=== PATIENT | male | born 1955 | race Caucasian/White ===

== ENCOUNTER 2016-04-12 19:44 | Emergency (ER) | payer OTHER ==
[~2016-04-12] VITALS: Ht 177.8 cm; Wt 100.0 kg
[~2016-04-12 19:44] MED LIST: IBUP800 PO; PRED50TA PO; TRAZ100
[2016-04-12 20:17] VITALS: BP 114/63; PULSE 72; RESP 20; TEMP 97.6; O2SAT 96
[2016-04-12] MEDS ORDERED: LORazepam 2 MG/ML VIAL IV ONE (20:30)
--- NOTE | 2016-04-12 20:31 | PD ---
HPI Chief Complaint: Psychiatric Symptoms Time Seen by Provider: 20:17 Travel History International Travel<30 days: No Contact w/Intl Traveler<30days: No Traveled to known affect area: No History of Present Illness HPI 60-year-old male with history of alcohol abuse, presents to the ER today because he states that he wants to kill himself. He has been Gannon acted. He denies any attempts. He states that he has been self-medicating with alcohol. He denies any other ingestions. He states he wants to shoot himself or stab himself. Modifying Factors: None Associated Signs & Symptoms: Suicidal ideation Risk Factors: Alcohol use PFSH Past Medical History Anxiety: Yes Depression: Yes Diminished Hearing: No Musculoskeletal: Yes Social History Alcohol Use: No Tobacco Use: No Substance Use: No (1 MONTH SOBER. HX OF ALCOHOLISM) Allergies-Medications (Allergen,Severity, Reaction): Coded Allergies: No Known Allergies (Unverified , 04/12/16) Reported Meds & Prescriptions Reported Meds & Active Scripts Active No Active Prescriptions or Reported Medications Review of Systems ROS Limitations: Intoxication Except as stated in HPI: all other systems reviewed are Neg Physical Exam Narrative GENERAL: Well-nourished, well-developed elderly white male patient in no acute distress, fairly agitated in the ER. Awake and oriented 3. Alcohol on breath. SKIN: Warm and dry. HEAD: Normocephalic. EYES: No scleral icterus. No injection or drainage. NECK: Supple, trachea midline. CARDIOVASCULAR: Regular rate and rhythm without murmurs, gallops, or rubs. RESPIRATORY: Breath sounds equal bilaterally. No accessory muscle use. GASTROINTESTINAL: Abdomen soft, non-tender, nondistended. MUSCULOSKELETAL: No cyanosis, or edema. BACK: Nontender without obvious deformity. No CVA tenderness. Data Data Last Documented VS Vital Signs Date Time Temp Pulse Resp B/P Pulse Ox O2 Delivery O2 Flow Rate FiO2 04/12/16 20:38 97.6 72 20 114/63 96 Orders Complete Blood Count With Diff (04/12/16 20:17) Comprehensive Metabolic Panel (04/12/16 20:17) Drug Screen, Random Urine (04/12/16 20:17) Alcohol (Ethanol) (04/12/16 20:17) Psych Screen (04/12/16 20:17) Lorazepam Inj (Ativan Inj) (04/12/16 20:30) Diet Regular Basic (04/12/16 Dinner) Labs Laboratory Tests Test 04/12/16 20:15 White Blood Count 6.4 TH/MM3 Red Blood Count 5.30 MIL/MM3 Hemoglobin 16.5 GM/DL Hematocrit 47.7 % Mean Corpuscular Volume 90.1 FL Mean Corpuscular Hemoglobin 31.1 PG Mean Corpuscular Hemoglobin 34.5 % Concent Red Cell Distribution Width 14.3 % Platelet Count 233 TH/MM3 Mean Platelet Volume 8.6 FL Neutrophils (%) (Auto) 55.5 % Lymphocytes (%) (Auto) 34.4 % Monocytes (%) (Auto) 8.0 % Eosinophils (%) (Auto) 1.4 % Basophils (%) (Auto) 0.7 % Neutrophils # (Auto) 3.6 TH/MM3 Lymphocytes # (Auto) 2.2 TH/MM3 Monocytes # (Auto) 0.5 TH/MM3 Eosinophils # (Auto) 0.1 TH/MM3 Basophils # (Auto) 0.0 TH/MM3 CBC Comment DIFF FINAL Differential Comment Urine Opiates Screen NEG Urine Barbiturates Screen NEG Urine Amphetamines Screen NEG Urine Benzodiazepines Screen NEG Urine Cocaine Screen NEG Urine Cannabinoids Screen NEG MDM Medical Decision Making Medical Screen Exam Complete: Yes Emergency Medical Condition: Yes Medical Record Reviewed: Yes Differential Diagnosis Agitation, suicidal ideation, alcohol intoxication, medical clearance Narrative Course Lab work was ordered and the patient. Ativan was given to the patient due to agitation. Gannon act has already been done on the patient. Physician Communication Physician Communication Case is signed out to JEWEL Junior at 9 PM pending lab results for medical clearance. Diagnosis Primary Impression: Suicidal ideation Scripts No Active Prescriptions or Reported Meds Condition: Stable Carissa Rosario MD Apr 12, 2016 20:31
[2016-04-12 20:35] LABS: AUTOMATED NEUTROPHIL # 3.6 TH/MM3 (1.8-7.7); BASOPHIL % 0.7 % (0.0-2.0); EOSINOPHIL # 0.1 TH/MM3 (0-0.4); EOSINOPHIL % 1.4 % (0.0-4.0); HEMATOCRIT 47.7 % (39.0-51.0); HEMO FLAGS DIFF FINAL; LYMPH % 34.4 % (9.0-44.0); LYMPHOCYTE # 2.2 TH/MM3 (1.0-4.8); MEAN CELL VOLUME 90.1 FL (80.0-100.0); MEAN CORPUSCULAR HEMOGLOBIN 31.1 PG (27.0-34.0); MEAN CORPUSCULAR HGB CONC 34.5 % (32.0-36.0); NEUT % 55.5 % (16.0-70.0); PLATELET COUNT 233 TH/MM3 (150-450); RED CELL DISTRIBUTION WIDTH 14.3 % (11.6-17.2); WHITE BLOOD COUNT 6.4 TH/MM3 (4.0-11.0)
[2016-04-12 20:38] VITALS: BP 114/63; PULSE 72; RESP 20; TEMP 97.6; O2SAT 96
[2016-04-12 20:47] LABS: AMPHETAMINE, URINE NEG (NEG); BARBITURATES, URINE NEG (NEG); COCAINE, URINE NEG (NEG)
[2016-04-12 21:07] LABS: ALKALINE PHOSPHATASE 79 U/L (45-117); ALT (GPT) 20 U/L (12-78); ANION GAP 11 MEQ/L (5-15); AST (GOT) 35 U/L (15-37); BICARBONATE 22.3 MEQ/L (21.0-32.0); BLOOD UREA NITROGEN 7 MG/DL (7-18); CHLORIDE 106 MEQ/L (98-107); GLOMERULAR FILTRATION RATE 98 ML/MIN (>89); SODIUM (NA) 139 MEQ/L (136-145); TOTAL BILIRUBIN ADULT 0.4 MG/DL (0.2-1.0)
[2016-04-12 21:08] LABS: POTASSIUM 4.3 MEQ/L (3.5-5.1)
--- NOTE | 2016-04-12 21:30 | PD ---
Physical Exam Date Seen by Provider: Apr 12, 2016 Time Seen by Provider: 21:29 Data Data Last Documented VS Vital Signs Date Time Temp Pulse Resp B/P Pulse Ox O2 Delivery O2 Flow Rate FiO2 04/12/16 20:38 97.6 72 20 114/63 96 Orders Complete Blood Count With Diff (04/12/16 20:17) Comprehensive Metabolic Panel (04/12/16 20:17) Drug Screen, Random Urine (04/12/16 20:17) Alcohol (Ethanol) (04/12/16 20:17) Psych Screen (04/12/16 20:17) Lorazepam Inj (Ativan Inj) (04/12/16 20:30) Diet Regular Basic (04/12/16 Dinner) Labs Laboratory Tests Test 04/12/16 20:15 White Blood Count 6.4 TH/MM3 Red Blood Count 5.30 MIL/MM3 Hemoglobin 16.5 GM/DL Hematocrit 47.7 % Mean Corpuscular Volume 90.1 FL Mean Corpuscular Hemoglobin 31.1 PG Mean Corpuscular Hemoglobin 34.5 % Concent Red Cell Distribution Width 14.3 % Platelet Count 233 TH/MM3 Mean Platelet Volume 8.6 FL Neutrophils (%) (Auto) 55.5 % Lymphocytes (%) (Auto) 34.4 % Monocytes (%) (Auto) 8.0 % Eosinophils (%) (Auto) 1.4 % Basophils (%) (Auto) 0.7 % Neutrophils # (Auto) 3.6 TH/MM3 Lymphocytes # (Auto) 2.2 TH/MM3 Monocytes # (Auto) 0.5 TH/MM3 Eosinophils # (Auto) 0.1 TH/MM3 Basophils # (Auto) 0.0 TH/MM3 CBC Comment DIFF FINAL Differential Comment Sodium Level 139 MEQ/L Potassium Level 4.3 MEQ/L Chloride Level 106 MEQ/L Carbon Dioxide Level 22.3 MEQ/L Anion Gap 11 MEQ/L Blood Urea Nitrogen 7 MG/DL Creatinine 0.80 MG/DL Estimat Glomerular Filtration 98 ML/MIN Rate Random Glucose 84 MG/DL Calcium Level 8.5 MG/DL Total Bilirubin 0.4 MG/DL Aspartate Amino Transf 35 U/L (AST/SGOT) Alanine Aminotransferase 20 U/L (ALT/SGPT) Alkaline Phosphatase 79 U/L Total Protein 7.4 GM/DL Albumin 3.9 GM/DL Urine Opiates Screen NEG Urine Barbiturates Screen NEG Urine Amphetamines Screen NEG Urine Benzodiazepines Screen NEG Urine Cocaine Screen NEG Urine Cannabinoids Screen NEG Ethyl Alcohol Level 220 MG/DL MDM Medical Record Reviewed: Yes Supervised Visit with ROME: Yes Interpretation(s) Laboratory Tests Test 04/12/16 20:15 White Blood Count 6.4 TH/MM3 Red Blood Count 5.30 MIL/MM3 Hemoglobin 16.5 GM/DL Hematocrit 47.7 % Mean Corpuscular Volume 90.1 FL Mean Corpuscular Hemoglobin 31.1 PG Mean Corpuscular Hemoglobin 34.5 % Concent Red Cell Distribution Width 14.3 % Platelet Count 233 TH/MM3 Mean Platelet Volume 8.6 FL Neutrophils (%) (Auto) 55.5 % Lymphocytes (%) (Auto) 34.4 % Monocytes (%) (Auto) 8.0 % Eosinophils (%) (Auto) 1.4 % Basophils (%) (Auto) 0.7 % Neutrophils # (Auto) 3.6 TH/MM3 Lymphocytes # (Auto) 2.2 TH/MM3 Monocytes # (Auto) 0.5 TH/MM3 Eosinophils # (Auto) 0.1 TH/MM3 Basophils # (Auto) 0.0 TH/MM3 CBC Comment DIFF FINAL Differential Comment Sodium Level 139 MEQ/L Potassium Level 4.3 MEQ/L Chloride Level 106 MEQ/L Carbon Dioxide Level 22.3 MEQ/L Anion Gap 11 MEQ/L Blood Urea Nitrogen 7 MG/DL Creatinine 0.80 MG/DL Estimat Glomerular Filtration 98 ML/MIN Rate Random Glucose 84 MG/DL Calcium Level 8.5 MG/DL Total Bilirubin 0.4 MG/DL Aspartate Amino Transf 35 U/L (AST/SGOT) Alanine Aminotransferase 20 U/L (ALT/SGPT) Alkaline Phosphatase 79 U/L Total Protein 7.4 GM/DL Albumin 3.9 GM/DL Urine Opiates Screen NEG Urine Barbiturates Screen NEG Urine Amphetamines Screen NEG Urine Benzodiazepines Screen NEG Urine Cocaine Screen NEG Urine Cannabinoids Screen NEG Ethyl Alcohol Level 220 MG/DL Differential Diagnosis MDM: High Differential diagnoses: Schizophrenia, schizoaffective disorder, bipolar, anxiety, depression, adjustment reaction, mood disorder NOS, ODD, depressive disorder NOS, dementia, dementia with agitation, psychosis NOS, substance induced mood disorder, intermittent explosive disorder, Asperger syndrome, infection,electrolyte abnormality, malingering. Narrative Course Mental health screening discussed with the patient. Psychiatric screen ordered. The patient's been medically cleared. This is alcohol intoxication, alcohol induced mood disorder Diagnosis Primary Impression: Suicidal ideation Scripts No Active Prescriptions or Reported Meds Condition: Kwame Benjamin Apr 12, 2016 21:30
[2016-04-12 21:36] VITALS: BP 114/63; PULSE 95; RESP 20; O2SAT 96
[2016-04-12 22:00] VITALS: BP 109/56; PULSE 81; RESP 19; O2SAT 99
[2016-04-12 22:19] VITALS: BP 109/56; PULSE 81; RESP 19; O2SAT 99
[2016-04-13 02:13] VITALS: BP 104/56; PULSE 100; RESP 18; TEMP 97.4; O2SAT 98
[2016-04-13 06:20] VITALS: BP 150/72; PULSE 81; RESP 18; O2SAT 99
[2016-04-13 10:01] VITALS: BP 134/68; PULSE 74; RESP 18; O2SAT 94
--- NOTE | 2016-04-13 13:27 | PD.CONS ---
Provisional Diagnosis Admission Date Alcohol abuse with alcohol-induced mood disorder F 10.14 History of Present Illness Service Psychiatry Consult Requested By EDMD Reason for Consult Gannon act Primary Care Physician Unknown HPI Patient is a 60-year-old white male comes her under Gannon act by the [place] dated 04/12/16 0728 hours stating on 04/12/16 at approximately 1835 hrs., I responded to [address] in reference to a suicidal person. I contacted Manpreet Elia Seniorh who advised that he was having suicidal thoughts. Oumar stated that he was suffering from physical pain in his legs and lower back pain due to a prior stroke. Oumar advised that he also has been diagnosed with depression, anxiety and bipolar disorder, and that he has several prescribed medications for these conditions. However he stated he is not taking these medications as he cannot afford to have them refilled. Oumar was visibly upset and cried while he spoke to me about his suicidal thoughts. See [facility] #[id number] an incident report for additional information. Patient was seen screened in the ED urine toxicology negative blood alcohol level to 20. At the present time patient sitting quietly in his room and J pod nurse Oc present throughout session. 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 He has been doing this. But appears the owners do drink and are somewhat interfering somewhat late with her pay for him. Patient also acknowledges drinking daily drinking vodka. On the day of this he was upset by the attitude and their disagreements and he drink more than he should. He denies being an alcoholic. But it acknowledges many years ago be in a detox program and have at least one or 2 DUIs. Patient denies suicidality homicidality voices or visions. He does state he was on disability now he is on Social Security. He states in the past when he was feeling somewhat emotionally unstable or kumar he would go to a local mental health facility check himself in for a day or 2 perhaps get on some medication, states she's been on Effexor and trazodone in the past taken from [facility] discontinue it. He has been off medication for a significant period of time does not see any mental health professional in this area he states she's been here for 4-6 months. Though he does state he has some type of relationship with [employer] At this time patient does not meet [employer] criteria I will lift the shopa act as okay by psych for discharge when he is medically clear and stable. The been no Rx by me. Strong recommendation for sobriety, referral to AA, referral to [facility] for substance abuse assessment, also follow-up mental health issues with [employer] Review of Systems Constitutional: DENIES: Diaphoretic episodes, Fatigue, Fever, Weight gain, Weight loss, Chills, Dizziness, Change in appetite, Night Sweats Endocrine: DENIES: Heat/cold intolerance, Polydipsia, Polyuria, Polyphagia Eyes: DENIES: Blurred vision, Diplopia, Eye inflammation, Eye pain, Vision loss , Photosensitivity, Double Vision Ears, nose, mouth, throat: DENIES: Tinnitus, Hearing loss, Vertigo, Nasal discharge, Oral lesions, Throat pain, Hoarseness, Ear Pain, Running Nose, Epistaxis, Sinus Pain, Toothache, Odynophagia Respiratory: DENIES: Apneas, Cough, Snoring, Wheezing, Hemoptysis, Sputum production, Shortness of breath Cardiovascular: DENIES: Chest pain, Palpitations, Syncope, Dyspnea on Exertion , PND, Lower Extremity Edema, Orthopnea, Claudication Gastrointestinal: DENIES: Abdominal pain, Black stools, Bloody stools, Constipation, Diarrhea, Nausea, Vomiting, Difficulty Swallowing, Anorexia Genitourinary: DENIES: Sexual dysfunction, Urinary frequency, Urinary incontinence, Urgency, Hematuria, Dysuria, Nocturia, Penile Discharge, Testicular Pain, Testicular Swelling Musculoskeletal: COMPLAINS OF: Muscle aches, Back pain Integumentary: DENIES: Abnormal pigmentation, Nail changes, Pruritus, Rash Hematologic/lymphatic: DENIES: Bruising, Lymphadenopathy Immunologic/allergic: DENIES: Eczema, Urticaria Psychiatric: COMPLAINS OF: Anxiety (mild), Depression (mild) Past Family Social History Coded Allergies: No Known Allergies (Unverified , 04/12/16) Past Medical History Patient has been on disability for back pain and chronic pain and past stroke Discontinued Reported Medications Trazodone HCl 100 Mg [id number] Mg .ROUTE HS 10/31/15 Discontinued Scripts Prednisone (Deltasone)50 Mg Tab50 Mg PO DAILY #5 TAB 1 TAB PO DAILY X 4 DAYS, THEN 1/2 TAB PO DAILY X 4 DAYS. Prov:Lisa De La Rosa 10/31/15 Ibuprofen (Motrin 800 Mg Tab)800 Mg [id number] Mg PO Q8H PRN (PAIN SCALE 1 TO 10) 14 Days Prov:Lisa De La Rosa 10/31/15 Family History Patient single Social History Patient lives in property where he is helping family to renovate long history alcohol abuse Patient's Strengths (min. 2) Patient verbal labile access healthcare Physical Exam Patient seen screened in ED exam reviewed and agreed with Vital Signs Vital Signs Date Time Temp Pulse Resp B/P Pulse Ox O2 Delivery O2 Flow Rate FiO2 04/13/16 10:01 74 18 134/68 94 Room Air 04/13/16 02:13 97.4 I/O 04/12/16 04/12/16 04/13/16 08:00 16:00 00:00 Intake Total 150 ml Output Total 500 ml Balance -350 ml Mental Status Examination Alert oriented white male appears stated age calm cooperative with good eye contact Appearance Fairly clean and neat Speech: Unremarkable Orientation: x3 Memory: Unremarkable Thought Process: Logical Thought Content: Unremarkable Hallucination Type: None Attention and Concentration: Other (fair) Suicidal Ideation: No Previous Suicide Attempts: No Homicidal Ideation: No Previous Homicide Attempts: No Insight: Fair Judgement: Poor Affect: Other (good range and intensity) Mood: Euthymic Motor Activity: Abnormal gait-specify (patient states with his stroke and back problems he has foot drop) Assessment & Plan Problem List: (1) Alcohol abuse with alcohol-induced mood disorder ICD Code: F10.14 Assessment & Plan Estimated LOS: days at this time patient does not meet shopa act criteria will lift shopa act. It is okay by psych for discharge for medical clearance stable. No Rx by me. Strong recommendation AA, strong recommendation sobriety , strong recommendations for [facility] voluntary outpatient substance abuse assessment, follow-up [facility] mental health as needed Discharge Planning See above Request HC Surrog/Guard Advoc?: No Boom England MD Apr 13, 2016 13:27
[2016-04-13] MEDS ORDERED: SERO25TA PO (21:24)
[2016-04-13] MEDS ORDERED: VENL25TA PO (21:24)
[2016-04-13] MEDS ORDERED: TRAZ50TA12 PO (21:24)
== END 2016-04-13 14:05 | disposition home or self-care (01) ==
LOC: NEPA 19:44 → NEPJ 04-13 14:05
DX: R45.851 Suicidal ideations (principal); F10.24 Alcohol dependence with alcohol-induced mood disorder; M54.5 Low back pain; M79.605 Pain in left leg; M79.604 Pain in right leg
CPT/HCPCS: 80053; 80307; 80320; 85025; 96374; 99284; J2060

== ENCOUNTER 2016-04-13 20:33 | Emergency (ER) | payer OTHER ==
[~2016-04-13] VITALS: Ht 177.8 cm; Wt 100.0 kg
[2016-04-13 20:40] VITALS: BP 131/74; PULSE 96; RESP 18; TEMP 97.9; O2SAT 98
[2016-04-13] MEDS ORDERED: SERO25TA PO (21:24)
[2016-04-13] MEDS ORDERED: VENL25TA PO (21:24)
[2016-04-13] MEDS ORDERED: TRAZ50TA12 PO (21:24)
[2016-04-13 21:55] LABS: AUTOMATED NEUTROPHIL # 3.8 TH/MM3 (1.8-7.7); BASOPHIL % 0.5 % (0.0-2.0); EOSINOPHIL # 0.1 TH/MM3 (0-0.4); HEMATOCRIT 46.6 % (39.0-51.0); HEMO FLAGS DIFF FINAL; LYMPHOCYTE # 2.3 TH/MM3 (1.0-4.8); MEAN CELL VOLUME 90.9 FL (80.0-100.0); MEAN CORPUSCULAR HEMOGLOBIN 31.1 PG (27.0-34.0); MEAN CORPUSCULAR HGB CONC 34.2 % (32.0-36.0); MONO % 10.9 % (0.0-8.0); NEUT % 54.6 % (16.0-70.0); PLATELET COUNT 206 TH/MM3 (150-450); RED BLOOD COUNT 5.13 MIL/MM3 (4.50-5.90); RED CELL DISTRIBUTION WIDTH 13.7 % (11.6-17.2); WHITE BLOOD COUNT 6.9 TH/MM3 (4.0-11.0)
--- NOTE | 2016-04-13 21:55 | PD ---
HPI Chief Complaint: Psychiatric Symptoms Time Seen by Provider: 21:16 Travel History International Travel<30 days: No Contact w/Intl Traveler<30days: No Traveled to known affect area: No History of Present Illness HPI Patient is a 60-year-old male who presents to emergency room for psychiatric evaluation. Patient was brought to emergency room by law enforcement and is currently under Gannon act for suicidal idealizations. Patient reports that he is suicidal and would like to as he is tired of living. Patient reports that there are many ways that he could kill himself, patient does not have an active plan for suicide at this time. Denies homicidal idealizations. Patient at this time is not confessing to using any drugs or alcohol. Patient reports that he has tried to hurt himself in the past, reports that he has tried to shoot himself in the past. PFSH Past Medical History Arthritis: Yes Bipolar Disorder: Yes Anxiety: Yes Depression: Yes Diminished Hearing: No Musculoskeletal: Yes Psychiatric: Yes Tetanus Vaccination: Unknown Influenza Vaccination: No Family History Family History: Negative Social History Alcohol Use: Yes Tobacco Use: Yes Substance Use: No Allergies-Medications (Allergen,Severity, Reaction): Coded Allergies: No Known Allergies (Unverified , 04/13/16) Reported Meds & Prescriptions Reported Meds & Active Scripts Active Reported Seroquel (Quetiapine Fumarate) 25 Mg Tab Unknown Dose PO BID Trazodone (Trazodone HCl) 50 Mg Tab Unknown Dose PO HS Effexor (Venlafaxine HCl) 25 Mg Tab Unknown Dose PO Q12H Review of Systems General / Constitutional: No: Fever Eyes: No: Visual changes HENT: No: Headaches Cardiovascular: No: Chest Pain or Discomfort Respiratory: No: Shortness of Breath Gastrointestinal: No: Abdominal Pain Genitourinary: No: Dysuria Musculoskeletal: No: Pain Skin: No Rash Neurologic: No: Weakness Psychiatric: Positive: Anxiety, Depression, Suicidal Ideations, No: Homicidal Ideation Endocrine: No: Polydipsia Hematologic/Lymphatic: No: Easy Bruising Physical Exam Narrative GENERAL: No acute distress, nontoxic SKIN: Warm and dry. HEAD: Atraumatic. Normocephalic. EYES: Pupils equal and round. No scleral icterus. No injection or drainage. ENT: No nasal bleeding or discharge. Mucous membranes pink and moist. NECK: Trachea midline. No JVD. CARDIOVASCULAR: Regular rate and rhythm. No murmur appreciated. RESPIRATORY: No accessory muscle use. Clear to auscultation. Breath sounds equal bilaterally. GASTROINTESTINAL: Abdomen soft, non-tender, nondistended. Hepatic and splenic margins not palpable. MUSCULOSKELETAL: No obvious deformities. No clubbing. No cyanosis. No edema. NEUROLOGICAL: Awake and alert. No obvious cranial nerve deficits. Motor grossly within normal limits. Normal speech. PSYCHIATRIC: Patient with suicidal ideations Data Data Last Documented VS Vital Signs Date Time Temp Pulse Resp B/P Pulse Ox O2 Delivery O2 Flow Rate FiO2 04/13/16 20:40 97.9 96 18 131/74 98 Orders Complete Blood Count With Diff (04/13/16 20:39) Comprehensive Metabolic Panel (04/13/16 20:39) Tylenol (Acetaminophen) (04/13/16 20:39) Drug Screen, Random Urine (04/13/16 20:39) Salicylates (Aspirin) (04/13/16 20:39) Psych Screen (04/13/16 20:41) Alcohol (Ethanol) (04/13/16 20:41) MDM Medical Decision Making Medical Screen Exam Complete: Yes Emergency Medical Condition: Yes Interpretation(s) Vital Signs Date Time Temp Pulse Resp B/P Pulse Ox O2 Delivery O2 Flow Rate FiO2 04/13/16 20:40 97.9 96 18 131/74 98 Differential Diagnosis Suicidal ideations, drug abuse Narrative Course Patient is a 60-year-old male who presents to emergency room with complaints of suicidal idealizations. Patient was placed under Gannon act by police officers. Screening labs drawn, once medically cleared, will have patient seen by psychiatric screeners. Sonja Bermudez DO Apr 13, 2016 21:55
[2016-04-13 22:13] LABS: AMPHETAMINE, URINE NEG (NEG); BARBITURATES, URINE NEG (NEG); COCAINE, URINE NEG (NEG)
[2016-04-13 22:39] LABS: BLOOD UREA NITROGEN 11 MG/DL (7-18); GLOMERULAR FILTRATION RATE 97 ML/MIN (>89)
[2016-04-13 22:40] LABS: ACETAMINOPHEN LESS THAN 2.0 MCG/ML (10.0-30.0); ALKALINE PHOSPHATASE 75 U/L (45-117); ALT (GPT) 20 U/L (12-78); ANION GAP 11 MEQ/L (5-15); AST (GOT) 20 U/L (15-37); BICARBONATE 24.2 MEQ/L (21.0-32.0); CHLORIDE 102 MEQ/L (98-107); POTASSIUM 3.3 MEQ/L (3.5-5.1); SODIUM (NA) 137 MEQ/L (136-145); TOTAL BILIRUBIN ADULT 0.4 MG/DL (0.2-1.0)
[2016-04-13] MEDS ORDERED: POTASSIUM CL 40 MEQ/30 ML LIQ UDC PO ONE (23:00)
[2016-04-14 03:51] VITALS: BP 110/61; PULSE 74; PULSE 89; RESP 16; O2SAT 96
--- NOTE | 2016-04-14 13:26 | PD ---
History of Present Illness Chief Complaint: Psychiatric Symptoms Time Seen by Provider: 12:45 Travel History International Travel<30 Days: No Contact w/Intl Traveler<30days: No Known affected area: No Legal Status Legal Status: Gannon Act Gannon Act Signed By: Rob Gannon Act Comment: 04/13/2016 @ 2011 History of Present Illness: History of Present Illness HPI Patient is a 60-year-old male with reported history of anxiety and depression who presents to emergency room for psychiatric evaluation. Patient was brought to emergency room by law enforcement and is currently under Gannon act for suicidal idealizations. As per the report ; " Stated that without proper medical care he is serious danger to himself. Manpreet stated that if he is not brought to the hospital he would harm himself tonight. he was evaluated by Dr. England on Mar under similar circumstances. At this visit he presents with BAL of 238. Patient is monitored in J pod and he presented with no behavioral concerns or suicidality. He is clinically sober. He is alert and oriented, calm and engaging. There is no hallucinations, no delusions and no paranoia. There is no significant depressive or anxious features. he is denying any suicidal or homicidal ideation, intent or plan. He goes on to state ; " I have been having a lot of turmoil associated with my landlord who is also my employer. I wanted to come to the hospital for a rest. I never would harm myself. I am a [employer]. I just got my assisted social security so now I have money and I can rent a motel room if I want to get out of the situation". Patient has one previous admission to [facility] in October of 2015 when he presented with suicidal ideation as well as a strong suspicion of malingering for assisted. PFSH Past Medical History Arthritis: Yes Bipolar Disorder: Yes Anxiety: Yes Depression: Yes Diminished Hearing: No Musculoskeletal: Yes Psychiatric: Yes Tetanus Vaccination: Unknown Influenza Vaccination: No Psychiatric History Psychiatric History Hx Psychiatric Treatment: [facility] History of Inpatient Treatment: Yes ([facility] October 2015.) Guns or firearms in home: No Social History Single male. 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 x 5. Hx Alcohol Use: Yes Hx Tobacco Use: Yes Hx Substance Use: No Substance Use Type: Alcohol Hx of Substance Use Treatment: Yes Family Psychiatric History Negative Allergies-Medications (Allergen,Severity, Reaction): Coded Allergies: No Known Allergies (Unverified , 04/13/16) Reported Meds & Prescriptions Reported Meds & Active Scripts Active Reported Seroquel (Quetiapine Fumarate) 25 Mg Tab Unknown Dose PO BID Trazodone (Trazodone HCl) 50 Mg Tab Unknown Dose PO HS Effexor (Venlafaxine HCl) 25 Mg Tab Unknown Dose PO Q12H Review of Systems Constitutional: DENIES: Diaphoretic episodes, Fatigue, Fever, Weight gain, Weight loss, Chills, Dizziness, Change in appetite, Night Sweats Endocrine: DENIES: Heat/cold intolerance, Polydipsia, Polyuria, Polyphagia Eyes: DENIES: Blurred vision, Diplopia, Eye inflammation, Eye pain, Vision loss , Photosensitivity, Double Vision Ears, nose, mouth, throat: DENIES: Tinnitus, Hearing loss, Vertigo, Nasal discharge, Oral lesions, Throat pain, Hoarseness, Ear Pain, Running Nose, Epistaxis, Sinus Pain, Toothache, Odynophagia Cardiovascular: DENIES: Chest pain, Palpitations, Syncope, Dyspnea on Exertion , PND, Lower Extremity Edema, Orthopnea, Claudication Gastrointestinal: DENIES: Abdominal pain, Black stools, Bloody stools, Constipation, Diarrhea, Nausea, Vomiting, Difficulty Swallowing, Anorexia Genitourinary: DENIES: Sexual dysfunction, Urinary frequency, Urinary incontinence, Urgency, Hematuria, Dysuria, Nocturia, Penile Discharge, Testicular Pain, Testicular Swelling Musculoskeletal: COMPLAINS OF: Joint pain (right leg) Integumentary: DENIES: Abnormal pigmentation, Nail changes, Pruritus, Rash Hematologic/lymphatic: DENIES: Bruising, Lymphadenopathy Immunologic/allergic: DENIES: Eczema, Urticaria Neurologic: DENIES: Abnormal gait, Headache, Localized weakness, Paresthesias, Seizures, Speech Problems, Tremor, Poor Balance Psychiatric: COMPLAINS OF: Suicidal Ideation Exam Alert: Yes Armstrong: Person (ox4) Mood: Calm Affect: Euthymic Speech: Clear, Logical Eye Contact: Normal Memory Intact: Comment (no impairment) Hallucinations: Other (negative) Delusions: No Suicidal: Ideation (deneis any) Homicidal: Ideation (deneis any) Insight/Judgement poor. poor MDM Medical Decision Making Medical Record Reviewed: Yes Assessment/Plan 60 year old male with reported history of anxiety and depression as well as alcohol abuse who presents to ED under a BA. After the patient was allowed to sober up clinically and spent the night he is recanting his story regarding having experienced suicidal ideation. he clearly indicated to me that he just wanted a rest and a place to stay for the night. The BA will be lifted and he will be discharged. Orders Complete Blood Count With Diff (04/13/16 20:39) Comprehensive Metabolic Panel (04/13/16 20:39) Tylenol (Acetaminophen) (04/13/16 20:39) Drug Screen, Random Urine (04/13/16 20:39) Salicylates (Aspirin) (04/13/16 20:39) Psych Screen (04/13/16 20:41) Alcohol (Ethanol) (04/13/16 20:39) Potassium Cl 40 Meq/30 Ml Liq (Kcl 40 Me (04/13/16 23:00) Diet Diabetic (04/14/16 Breakfast) Diet Regular Basic (04/14/16 Lunch) Results Vital Signs Date Time Temp Pulse Resp B/P Pulse Ox O2 Delivery O2 Flow Rate FiO2 04/14/16 03:51 89 16 110/61 96 Room Air 04/13/16 20:40 97.9 96 18 131/74 98 Laboratory Tests Test 04/13/16 04/13/16 20:45 20:55 Urine Opiates Screen NEG Urine Barbiturates Screen NEG Urine Amphetamines Screen NEG Urine Benzodiazepines Screen NEG Urine Cocaine Screen NEG Urine Cannabinoids Screen NEG White Blood Count 6.9 Red Blood Count 5.13 Hemoglobin 15.9 Hematocrit 46.6 Mean Corpuscular Volume 90.9 Mean Corpuscular Hemoglobin 31.1 Mean Corpuscular Hemoglobin 34.2 Concent Red Cell Distribution Width 13.7 Platelet Count 206 Mean Platelet Volume 8.3 Neutrophils (%) (Auto) 54.6 Lymphocytes (%) (Auto) 33.0 Monocytes (%) (Auto) 10.9 Eosinophils (%) (Auto) 1.0 Basophils (%) (Auto) 0.5 Neutrophils # (Auto) 3.8 Lymphocytes # (Auto) 2.3 Monocytes # (Auto) 0.8 Eosinophils # (Auto) 0.1 Basophils # (Auto) 0.0 CBC Comment DIFF FINAL Differential Comment Sodium Level 137 Potassium Level 3.3 Chloride Level 102 Carbon Dioxide Level 24.2 Anion Gap 11 Blood Urea Nitrogen 11 Creatinine 0.81 Estimat Glomerular Filtration 97 Rate Random Glucose 76 Calcium Level 8.5 Total Bilirubin 0.4 Aspartate Amino Transf 20 (AST/SGOT) Alanine Aminotransferase 20 (ALT/SGPT) Alkaline Phosphatase 75 Total Protein 7.4 Albumin 3.8 Salicylates Level 4.0 Acetaminophen Level LESS THAN 2.0 Ethyl Alcohol Level 281 Diagnosis Primary Impression: Alcohol abuse with alcohol-induced mood disorder Additional Impression: Malingering Psychiatrically Cleared: Yes Referrals: [facility] (Out patient) call for appointment Departure Forms: Tests/Procedures Patient Instructions: General Instructions, Alcohol Intoxication (ED) Disposition: 01 DISCHARGE HOME Condition: Stable Problem Qualifiers Nicki Dos Santos Apr 14, 2016 13:26
== END 2016-04-14 15:57 | disposition home or self-care (01) ==
LOC: NEPA 20:33 → NEPJ 04-14 15:57
DX: F10.14 Alcohol abuse with alcohol-induced mood disorder (principal); Z76.5 Malingerer [conscious simulation]; R45.851 Suicidal ideations; Z72.0 Tobacco use
CPT/HCPCS: 80053; 80307; 80320; 80329; 85025; 99283; G0480

== ENCOUNTER 2016-05-05 18:02 | Observation (INO) | payer OTHER ==
[~2016-05-05] VITALS: Ht 180.3 cm; Wt 90.0 kg
[~2016-05-05 18:02] MED LIST changes: -IBUP800 PO; -PRED50TA PO; +SERO25TA PO; -TRAZ100; +TRAZ50TA12 PO; +VENL25TA PO
[2016-05-05 18:03] VITALS: BP 129/82; PULSE 85; RESP 18; TEMP 98.1; O2SAT 97
[2016-05-05 18:19] VITALS: BP 131/81; PULSE 79; RESP 18; O2SAT 95
[2016-05-05] MEDS ORDERED: SODIUM CHLOR 0.9% 1000 ML INJ 1,000 ML IV ONE (19:00)
--- NOTE | 2016-05-05 19:06 | PD ---
HPI Chief Complaint: Eye Problems/Injury Time Seen by Provider: 19:01 Travel History International Travel<30 days: No Contact w/Intl Traveler<30days: No Traveled to known affect area: No History of Present Illness HPI 60-year-old male presents to the emergency department stating that he is suicidal and wants to kill himself "now". Patient also states that he has been losing his vision for approximately one year, but is getting worse over the past 3-4 days. The patient is obviously intoxicated on exam with a strong smell of alcohol on his breath. He reports to drinking 6 block and drinks today. The patient denies any drug use. The patient denies any attempt to hurt himself at this time. The patient denies any other complaints at this time. He states he has never followed up with an children's court magistrate even though he is losing his vision. He states that he can still see silhouettes and this has been ongoing for a year. He denies any headache or other complaints. PFSH Past Medical History Arthritis: Yes Bipolar Disorder: Yes Anxiety: Yes Depression: Yes Diminished Hearing: No Musculoskeletal: Yes Psychiatric: Yes Social History Alcohol Use: Yes Tobacco Use: Yes Substance Use: No Allergies-Medications (Allergen,Severity, Reaction): Coded Allergies: No Known Allergies (Unverified , 05/05/16) Reported Meds & Prescriptions Reported Meds & Active Scripts Active No Active Prescriptions or Reported Medications Review of Systems Except as stated in HPI: all other systems reviewed are Neg Physical Exam Narrative GENERAL: Well-developed well-nourished male patient, ambulatory. Afebrile. Patient looks at me when I walk in the room and tracks with his eyes as I walk around the room. He also walk to the toilet without difficulty. Patient has a strong smell of alcohol on his breath. SKIN: Warm and dry. HEAD: Normocephalic. Atraumatic. EYES: No scleral icterus. No injection or drainage. PERRLA. EOM intact. NECK: Supple, trachea midline. No JVD or lymphadenopathy. CARDIOVASCULAR: Regular rate and rhythm without murmurs, gallops, or rubs. RESPIRATORY: Breath sounds equal bilaterally. No accessory muscle use. Lungs sounds clear to auscultation. GASTROINTESTINAL: Abdomen soft, non-tender, nondistended. MUSCULOSKELETAL: No cyanosis, or edema. BACK: Nontender without obvious deformity. No CVA tenderness. PSYCHIATRIC: No delusional thought processes. No hallucinations. Data Data Last Documented VS Vital Signs Date Time Temp Pulse Resp B/P Pulse Ox O2 Delivery O2 Flow Rate FiO2 05/05/16 18:19 79 18 131/81 95 Room Air 05/05/16 18:03 98.1 Orders Complete Blood Count With Diff (05/05/16 18:56) Comprehensive Metabolic Panel (05/05/16 18:56) Psych Screen (05/05/16 18:56) Drug Screen, Random Urine (05/05/16 18:56) Alcohol (Ethanol) (05/05/16 18:56) Sodium Chlor 0.9% 1000 Ml Inj (Ns 1000 M (05/05/16 19:00) Ct Brain W/O Iv Contrast(Rout) (05/05/16 ) Admit Order (Ed Use Only) (05/05/16 22:05) Labs Laboratory Tests Test 05/05/16 19:40 White Blood Count 5.9 TH/MM3 Red Blood Count 5.13 MIL/MM3 Hemoglobin 16.2 GM/DL Hematocrit 45.5 % Mean Corpuscular Volume 88.6 FL Mean Corpuscular Hemoglobin 31.6 PG Mean Corpuscular Hemoglobin 35.6 % Concent Red Cell Distribution Width 13.8 % Platelet Count 252 TH/MM3 Mean Platelet Volume 7.5 FL Neutrophils (%) (Auto) 55.3 % Lymphocytes (%) (Auto) 33.8 % Monocytes (%) (Auto) 9.3 % Eosinophils (%) (Auto) 0.7 % Basophils (%) (Auto) 0.9 % Neutrophils # (Auto) 3.2 TH/MM3 Lymphocytes # (Auto) 2.0 TH/MM3 Monocytes # (Auto) 0.5 TH/MM3 Eosinophils # (Auto) 0.0 TH/MM3 Basophils # (Auto) 0.1 TH/MM3 CBC Comment DIFF FINAL Differential Comment Sodium Level 137 MEQ/L Potassium Level 3.8 MEQ/L Chloride Level 103 MEQ/L Carbon Dioxide Level 22.5 MEQ/L Anion Gap 12 MEQ/L Blood Urea Nitrogen 9 MG/DL Creatinine 0.74 MG/DL Estimat Glomerular Filtration 107 ML/MIN Rate Random Glucose 71 MG/DL Calcium Level 8.3 MG/DL Total Bilirubin 0.4 MG/DL Aspartate Amino Transf 44 U/L (AST/SGOT) Alanine Aminotransferase 46 U/L (ALT/SGPT) Alkaline Phosphatase 93 U/L Total Protein 7.4 GM/DL Albumin 4.0 GM/DL Ethyl Alcohol Level 301 MG/DL MDM Medical Decision Making Medical Screen Exam Complete: Yes Emergency Medical Condition: Yes Medical Record Reviewed: Yes Interpretation(s) CT brain - CONCLUSION: No intracranial abnormality demonstrated. Right maxillary sinus disease. Differential Diagnosis Alcohol intoxication versus substance abuse versus alcohol-induced mood disorder versus intracranial abnormality versus malingering Narrative Course 60-year-old male presents to the emergency department stating he feels suicidal and also states he is losing his vision over the past year. When asked what made him come in today he states it is because "I am suicidal". CBC, CMP, alcohol level, urine drug screen, CT of the brain are ordered and pending. Patient is given normal saline 1 L IV bolus. CBC shows no acute abnormality. CMP shows no acute abnormality. Alcohol level is 301. UDS is pending. CT of the brain shows no intracranial abnormality demonstrated. Right maxillary sinus disease. Patient still states "I can't see, I don't want to live if I can't see". I discussed the case with my attending physician, Dr. Rosario, who recommends 23 hour observation with ophthalmology consult. Dr. Payan, resident, accepted admission. Diagnosis Primary Impression: Visual changes Additional Impression: Alcohol abuse with alcohol-induced mood disorder Admitting Information Admitting Physician Requests: Observation Scripts No Active Prescriptions or Reported Meds Leah Westfall May 05, 2016 19:06
--- NOTE | 2016-05-05 19:22 | RADRPT ---
EXAM DATE/TIME: 05/05/2016 19:05 [facility] COMPARISON: No previous studies available for comparison. INDICATIONS : Cephalgia with visual disturbances; ETOH. RADIATION DOSE: 56.36 CTDIvol (mGy) MEDICAL HISTORY : Seizures. SURGICAL HISTORY : None. ENCOUNTER: Initial ACUITY: 1 day PAIN SCALE: 4/10 LOCATION: cranial TECHNIQUE: Multiple contiguous axial images were obtained of the head. Using automated exposure control and adj ustment of the mA and/or kV according to patient size, radiation dose was kept as low as reasonably a chievable to obtain optimal diagnostic quality images. FINDINGS: CEREBRUM: The ventricles are normal for age. No evidence of midline shift, mass lesion, hemorrhage or acute in farction. No extra-axial fluid collections are seen. POSTERIOR FOSSA: The cerebellum and brainstem are intact. The 4th ventricle is midline. The cerebellopontine angle i s unremarkable. EXTRACRANIAL: There is mucoperiosteal thickening of the right maxillary air cell. SKULL: The calvaria is intact. No evidence of skull fracture. CONCLUSION: No intracranial abnormality demonstrated. Right maxillary sinus disease. Boom Israel MD on May 05, 2016 at 19:19 Board Certified Radiologist. This report was verified electronically.
[2016-05-05 19:58] LABS: AUTOMATED NEUTROPHIL # 3.2 TH/MM3 (1.8-7.7); BASOPHIL # 0.1 TH/MM3 (0-0.2); BASOPHIL % 0.9 % (0.0-2.0); EOSINOPHIL % 0.7 % (0.0-4.0); HEMATOCRIT 45.5 % (39.0-51.0); HEMO FLAGS DIFF FINAL; LYMPH % 33.8 % (9.0-44.0); MEAN CELL VOLUME 88.6 FL (80.0-100.0); MEAN CORPUSCULAR HEMOGLOBIN 31.6 PG (27.0-34.0); MEAN CORPUSCULAR HGB CONC 35.6 % (32.0-36.0); MONO % 9.3 % (0.0-8.0); NEUT % 55.3 % (16.0-70.0); PLATELET COUNT 252 TH/MM3 (150-450); RED BLOOD COUNT 5.13 MIL/MM3 (4.50-5.90); RED CELL DISTRIBUTION WIDTH 13.8 % (11.6-17.2); WHITE BLOOD COUNT 5.9 TH/MM3 (4.0-11.0)
[2016-05-05 21:30] LABS: ALT (GPT) 46 U/L (12-78); ANION GAP 12 MEQ/L (5-15); AST (GOT) 44 U/L (15-37); BICARBONATE 22.5 MEQ/L (21.0-32.0); BLOOD UREA NITROGEN 9 MG/DL (7-18); CHLORIDE 103 MEQ/L (98-107); GLOMERULAR FILTRATION RATE 107 ML/MIN (>89); SODIUM (NA) 137 MEQ/L (136-145)
[2016-05-05 21:32] LABS: ALKALINE PHOSPHATASE 93 U/L (45-117); TOTAL BILIRUBIN ADULT 0.4 MG/DL (0.2-1.0)
[2016-05-05 21:33] LABS: POTASSIUM 3.8 MEQ/L (3.5-5.1)
--- NOTE | 2016-05-05 22:51 | HHI.HP ---
HPI Service Family Medicine Primary Care Physician No Primary Care Physician Admission Diagnosis visual changes, alcohol intoxication, suicidal ideation Diagnoses: International Travel<30 Days: No Contact w/Intl Traveler<30days: No Known Affected Area: No History of Present Illness 60 year-old male with alcoholism and MDD, well known to [place] ED , presents 05/05/15 with suicidal ideation and visual changes. Pt is a poor historian with poor insight. Visual changes started a few days ago, with increasingly cloudy vision "like looking through paint". Endorses impressions and shapes, not details. Told in past had cataracts, but never symptoms like this before. Denies trauma to eye. Wore glasses 10 years ago, lost them in 2007 when went to detention. High suspicion for malingering as patient tracks people across the room, has full visual eaton, and answered incorrectly every single question (100% inaccuracy) about #fingers per visual field. Reports suicidal thoughts to ED physician, but denies to Family Practice team. Unsure how he would kill himself. Does report "my depression got worse since I'm going blind". On no current psych medications since he can't afford them. Other stressors include landlord/neighbors pressuring him to get a job: "I am not working that 7 days a week hell". 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 Drank 2 pints of vodka prior to calling EMS. Denies alcoholism. States he drinks "once every 10 days" for back pain/ arthritis. Hx of DT. Denies fever/chills, nausea/vomiting, chest pain, SOB worse than baseline anxiety, abdominal pain, or leg pain. Reports lumbar back pain. Pt seen in the ED three weeks ago under Gannon Act for suicidal thoughts (). Psychiatry consulted, diagnosed with alcoholism and substance induced mood d/o, and recommended sobriety, referral to AA, and follow up for alcohol abuse and mental health issues with Rodrigo Purcell. Pt states "nothing" changed in the past three weeks. He did not follow up with Rodrigo Purcell because "I need to do it by myself". Does not want psychotherapy because does not want to pay for it. However, "wants help". (Deidre Wise MD R1) Review of Systems ROS Limitations: Intoxication, Poor Historian Constitutional: COMPLAINS OF: Change in appetite (decreased solids, more alcohol), DENIES: Diaphoretic episodes, Fever, Chills Eyes: COMPLAINS OF: Blurred vision, Photosensitivity (endorces, but when distracted, not present), Double Vision Ears, nose, mouth, throat: DENIES: Throat pain Respiratory: COMPLAINS OF: Shortness of breath (anxiety-related chronic), DENIES: Wheezing Cardiovascular: DENIES: Chest pain Gastrointestinal: DENIES: Abdominal pain, Nausea, Vomiting Musculoskeletal: COMPLAINS OF: Back pain Neurologic: COMPLAINS OF: Tremor (Present on physical exam, when pt distracted , improves), DENIES: Headache Psychiatric: COMPLAINS OF: Anxiety, Depression, Suicidal Ideation (denies presently, endorced earlier today), DENIES: Hallucinations (Deidre Wise MD R1) Past Family Social History Past Medical History Alcoholism Hx DT Tobacco Abuse MDD Substance Induced Mood D/o Chronic lumbar back pain Hx stroke (per pt) Past Surgical History Denies Reported Medications None (Deidre Wise MD R1) Allergies: Coded Allergies: No Known Allergies (Unverified , 05/06/16) Family History Aunt: depression Mother and father were healthy Denies other FHx of mental disorders or chronic diseases Social History Lives independently in . Having conflicts with the neighbors that live on either side of him. Tobacco: 1/2 PPD Alcohol: Heavy daily use per past notes. 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. Hair somewhat disheveled. SKIN: Numerous tattoos. No rashes or ecchymoses. Pinpoint black blister on 3rd digit R hand HEENT: PERRL. No scleral icterus or jaundice. Intermittent photosensitivity that decreases when pt distracted Intermittently opening eyes very wide with far off gaze. Tracks people and objects in room- gross EOMI intact Visual eaton full. 0/6 correct fingers in visual field testing. Limited fundoscopic exam: red reflex b/l. Optic disc not visualized secondary to pt intolerance of exam. No flame or dot-blot hemorrhages, cotton wool spots, or drusen. MMM. Oropharynx non-erythematous. NECK: No LAD CV: RRR. No murmurs. RESP: Lungs CTAB. No wheezing. GI: Abd soft, NTND. No masses. MSK: Muscle tone symmetrical and wnl. Moves all four limbs against gravity. NEUROLOGICAL: AAOx3. Minor slurring of speech. No facial droop. Motor and sensory grossly within normal limits. PSYCH: Poor insight. Exaggeration of symptoms (visual changes, tremor, back pain) that decrease when pt distracted. Labile mood- from teary to soft spoken and sad to frustrated. Speech is at times tangential, but re-directable. Not reacting to internal stimuli. Laboratory Laboratory Tests Test 05/05/16 19:40 White Blood Count 5.9 Red Blood Count 5.13 Hemoglobin 16.2 Hematocrit 45.5 Mean Corpuscular Volume 88.6 Mean Corpuscular Hemoglobin 31.6 Mean Corpuscular Hemoglobin 35.6 Concent Red Cell Distribution Width 13.8 Platelet Count 252 Mean Platelet Volume 7.5 Neutrophils (%) (Auto) 55.3 Lymphocytes (%) (Auto) 33.8 Monocytes (%) (Auto) 9.3 Eosinophils (%) (Auto) 0.7 Basophils (%) (Auto) 0.9 Neutrophils # (Auto) 3.2 Lymphocytes # (Auto) 2.0 Monocytes # (Auto) 0.5 Eosinophils # (Auto) 0.0 Basophils # (Auto) 0.1 CBC Comment DIFF FINAL Differential Comment Sodium Level 137 Potassium Level 3.8 Chloride Level 103 Carbon Dioxide Level 22.5 Anion Gap 12 Blood Urea Nitrogen 9 Creatinine 0.74 Estimat Glomerular Filtration 107 Rate Random Glucose 71 Calcium Level 8.3 Total Bilirubin 0.4 Aspartate Amino Transf 44 (AST/SGOT) Alanine Aminotransferase 46 (ALT/SGPT) Alkaline Phosphatase 93 Total Protein 7.4 Albumin 4.0 Ethyl Alcohol Level 301 (Deidre Wise MD R1) Result Diagram: 05/05/16193905/05/161939 Imaging Last Impressions Head CT 05/05/16 0000 Signed Impressions: Service Date/Time: Thursday, May 05, 2016 19:05 - CONCLUSION: No intracranial abnormality demonstrated. Right maxillary sinus disease. Boom Israel MD (Deidre Wise MD R1) Assessment and Plan Assessment and Plan 60 year-old male with alcoholism and MDD admitted for observation 05/05 for suicidal ideation, vision changes, and alcohol intoxication. Code Status Full Discussed Condition With SDW: Dr. Aisha Payan (Deidre Wise MD R1) Problem List: (1) Suicidal ideation Status: Acute Plan: Complex past psychiatric history with diagnoses of substance induced mood d/o NOS, malingering, adjustment disorder, MDD, and more. Seen by psych in ED 04/14/16 and inpt 10/2015. Despite statements to ED physician about wanting to end life, denied active or passive SI to FP team. No plan. Alcoholism is certainly worsening his underlying psychiatric issues- EtOH on admission 301. -Admit to 23 hour observation -Psychiatry consulted -Appreciate assistance with dx/tx of pathology behind SI, also r/o malingering -Case consulted -Request assistance giving pt resources for PCP, psychologist, substance abuse counseling, mental health counseling, and financial assistance for psychiatric medications -Continue to monitor (2) Malingering Status: Acute Plan: Behavior is odd and not consistent with classical presentation of depression. Suspect underlying residential troubles (landlord is pressuring him to get a job to pay rent) or desire for pharmaceuticals (requested Librium by name while not showing signs of withdrawal in any way from alcohol) -Continue to monitor (3) Visual changes Status: Acute Plan: Differential: Cataracts vs malingering vs glaucoma vs Partial retinal detachment vs astigmatism vs hyperopia vs myopia CT head wnl with R sinus pathology. Reassuring exam- pupillary light reflex intact. No recent trauma to occipital lobe or eye. -Ophthalmology consulted for assistance with diagnosis and treatment of vision changes -Will likely need outpatient follow up for eye exam and glasses, as necessary (4) Alcohol abuse with alcohol-induced mood disorder Status: Acute Plan: Ethyl alcohol level 301 on admission. Reportedly drank two pints vodka earlier today because stressed about neighbors telling him to get a job. -Urine tox screen pending- pt not yet voided per nursing staff -[facility] protocol -Alcohol cessation counseling provided by FP team -EtOH cessation counselor consulted for further recommendations and resources for pt -Recommend pt follow previous recommendations by psychiatry to f/u substance abuse and mental health counseling with rodrigo purcell (5) Fluids, Electrolytes, Nutrition, Prophylaxis Status: Chronic Plan: Fluids: Per PO Electrolytes: Nutrition: Regular diet DVT ppx: SCDs bilateral GI ppx: not indicated Pain: Tylenol 650mg q6h PRN OOB ad cali (considered OOB with assistance, however, per physical exam findings , deemed able to ambulate independently at present despite vision complaints) (Deidre Wise MD R1) Deidre Wise MD R1 May 05, 2016 22:51 Stephanie Del Rio MD May 06, 2016 15:44
[2016-05-05] MEDS ORDERED: LORazepam 2 MG TAB PO PRN ×2 (23:30)
[2016-05-05] MEDS ORDERED: LORazepam 1 MG TAB PO PRN (23:30)
[2016-05-05] MEDS ORDERED: cloNIDine HCL 0.1 MG TAB PO PRN (23:30)
[2016-05-05] MEDS ORDERED: FLUMAZENIL 0.5 MG/5 ML VIAL IV PUSH PRN ×2 (23:30)
[2016-05-05] MEDS ORDERED: LORazepam 2 MG/ML VIAL IV PUSH PRN ×7 (23:30)
[2016-05-06] VITALS: BP 103/55; PULSE 83; RESP 16; O2SAT 96
[2016-05-06 02:12] VITALS: BP 122/75; PULSE 86; RESP 16; TEMP 97.5; O2SAT 93
[2016-05-06] MEDS: LORazepam 1 MG TAB PO PRN ×2 (02:22→12:13)
[2016-05-06] MEDS: LORazepam 2 MG/ML VIAL IV PUSH PRN ×2 (06:03→08:13)
[2016-05-06 06:13] LABS: AMPHETAMINE, URINE NEG (NEG); BARBITURATES, URINE NEG (NEG); COCAINE, URINE NEG (NEG)
[2016-05-06] MEDS: THIAMINE HCL 100 MG TAB PO SCH (08:12)
[2016-05-06] MEDS: FOLIC ACID 1 MG TAB PO SCH (08:12)
[2016-05-06] MEDS: MULTIVITAMINS/MINERALS THERAPEUTIC TAB PO SCH (08:12)
[2016-05-06 08:23] VITALS: BP 130/82; PULSE 75; RESP 20; O2SAT 98
--- NOTE | 2016-05-06 11:29 | PD.CONS ---
History of Present Illness Service Ophthalmology Consult Requested By ED Reason for Consult gradual worsening vision OU Primary Care Physician No Primary Care Physician Diagnoses: History of Present Illness 60 yo WM presents to ED with a 6 month history of progressively worsening vision OU (OD>OS). Noticed it has been declining even more in the last few days. Has not had an eye exam in 10-15 years. Was told at one point he had early cataracts. +floaters OD, no flashes, no curtain. No eye pain. Past Family Social History Allergies: Coded Allergies: No Known Allergies (Unverified , 05/06/16) Physical Exam Vital Signs Vital Signs Date Time Temp Pulse Resp B/P Pulse Ox O2 Delivery O2 Flow Rate FiO2 05/06/16 08:23 75 20 130/82 98 05/06/16 02:12 97.5 86 16 122/75 93 05/06/16 00:00 83 16 103/55 96 Room Air 05/05/16 18:19 79 18 131/81 95 Room Air 05/05/16 18:03 98.1 85 18 129/82 97 Physical Exam Va sc at near OD 20/400, OS 20/70 EOM full OU, possible esotropia OD CVF full OU Pupils 3-2 no APD OU IOP 11, 16 Anterior exam OD - normal eyelid, C/S W&Q, K clear, AC deep, pupil round, 3+PSC OS - normal eyelid, C/S W&Q, K clear, AC deep, pupil round, 3+PSC Dilated exam OD - hazy view due to cataract, ON s/p/f, ves normal, vit clear, retina flat OS - hazy view due to cataract, ON s/p/f, ves normal, vit clear, retina flat Laboratory Laboratory Tests Test 05/05/16 05/06/16 19:40 05:45 White Blood Count 5.9 Red Blood Count 5.13 Hemoglobin 16.2 Hematocrit 45.5 Mean Corpuscular Volume 88.6 Mean Corpuscular Hemoglobin 31.6 Mean Corpuscular Hemoglobin 35.6 Concent Red Cell Distribution Width 13.8 Platelet Count 252 Mean Platelet Volume 7.5 Neutrophils (%) (Auto) 55.3 Lymphocytes (%) (Auto) 33.8 Monocytes (%) (Auto) 9.3 Eosinophils (%) (Auto) 0.7 Basophils (%) (Auto) 0.9 Neutrophils # (Auto) 3.2 Lymphocytes # (Auto) 2.0 Monocytes # (Auto) 0.5 Eosinophils # (Auto) 0.0 Basophils # (Auto) 0.1 CBC Comment DIFF FINAL Differential Comment Sodium Level 137 Potassium Level 3.8 Chloride Level 103 Carbon Dioxide Level 22.5 Anion Gap 12 Blood Urea Nitrogen 9 Creatinine 0.74 Estimat Glomerular Filtration 107 Rate Random Glucose 71 Calcium Level 8.3 Total Bilirubin 0.4 Aspartate Amino Transf 44 (AST/SGOT) Alanine Aminotransferase 46 (ALT/SGPT) Alkaline Phosphatase 93 Total Protein 7.4 Albumin 4.0 Ethyl Alcohol Level 301 Urine Opiates Screen NEG Urine Barbiturates Screen NEG Urine Amphetamines Screen NEG Urine Benzodiazepines Screen NEG Urine Cocaine Screen NEG Urine Cannabinoids Screen NEG Result Diagram: 05/05/16193905/05/161939 Assessment and Plan Problem List: (1) Posterior subcapsular age-related cataract of both eyes Status: Acute Plan: Visually significant. Explained diagnosis to patient and that he needs cataract surgery to improve his vision. Follow up as outpatient to schedule surgery. Brianna Coombs MD May 06, 2016 11:29
--- NOTE | 2016-05-06 11:44 | RADRPT ---
EXAM DATE/TIME: 05/06/2016 10:10 [facility] COMPARISON: No previous studies available for comparison. INDICATIONS : Syncope. MEDICAL HISTORY : Stroke. ETOH abuse. Cataracta. Depression. Chronic back pain. Visual changes. SURGICAL HISTORY : None. ENCOUNTER: Initial ACUITY: 1 day PAIN SCORE: 1/10 LOCATION: Bilateral neck. PEAK SYSTOLIC VELOCITIES (cm/sec): ICA/CCA RATIO: Right: 0.5 Left: 0.5 ICA: Right: 68 Left: 55 CCA: Right: 135 Left: 104 ECA: Right: 122 Left: 103 VERTEBRAL: Right: 44 antegrade Left: 33 antegrade Elevated flow velocities and ICA/CCA ratios have been found to correlate with increased degrees of vessel stenosis, calculated as percentage of diameter relative to a normal segment of distal ICA/CCA FINDINGS: RIGHT CAROTID: No significant stenosis is visualized. The waveforms are within normal limits. LEFT CAROTID: No significant stenosis is visualized. The waveforms are within normal limits. VERTEBRAL ARTERIES: Antegrade flow is seen in both vertebral arteries. MISCELLANEOUS: None. CONCLUSION: Normal examination. Boom Osorio MD on May 06, 2016 at 11:41 Board Certified Radiologist. This report was verified electronically.
[2016-05-06] MEDS: ASPIRIN 81 MG CHEW TAB CHEW SCH (12:13)
[2016-05-06] MEDS: ATORVASTATIN 40 MG TAB PO SCH (12:13)
--- NOTE | 2016-05-06 13:41 | PD.CONS ---
Provisional Diagnosis Admission Date May 05, 2016 at 22:08 [place] I. Alcohol use disorder, alcohol-induced mood disorder, depression, [place] II. Deferred [place] III. Lower lumbar pain [place] IV. Lack of social and family support [place] V. 55 History of Present Illness Service Psychiatry Consult Requested By Primary Care Physician No Primary Care Physician HPI The patient is a 60 year-old man, who lives independently, unemployed , with psychiatric history of depression, anxiety, bipolar disorder, history of incarcerations, multiple psychotic hospitalizations, alcohol use disorder, no significant medical history, well known to [facility], who presents 05/05/15 with suicidal ideation and visual changes. Pt is a poor historian with poor insight. Visual changes started a few days ago, with increasingly cloudy vision "like looking through paint". Endorses impressions and shapes, not details. Told in past had cataracts, but never symptoms like this before. Denies trauma to eye. Wore glasses 10 years ago, lost them in 2007 when went to group home. High suspicion for malingering as patient tracks people across the room , has full visual eaton, and answered incorrectly every single question (100% inaccuracy) about #fingers per visual field. BAL was initially 301. On psychiatric evaluation the patient is calm, cooperative, patient says that he has been drinking alcohol basically every day, he says that he takes about 1-2 pints of vodka, yesterday when he came to the ER, he was presenting visual changes, he says he was drunk at some point due to the visual changes he felt that he wanted to . At this moment, the patient denies depression, denies anhedonia, denies hopelessness, denies hopelessness, he reports frequent sadness due to her drinking situation and also lack of social and family support , has a poor sleep at night, he denies suicidal or homicidal ideation, denies visual and auditory hallucinations. Patient is oriented 3. He denies the use of illicit drug. Review of Systems Constitutional: DENIES: Diaphoretic episodes, Fatigue, Fever, Weight gain, Weight loss, Chills, Dizziness, Change in appetite, Night Sweats Endocrine: DENIES: Heat/cold intolerance, Polydipsia, Polyuria, Polyphagia Ears, nose, mouth, throat: DENIES: Tinnitus, Hearing loss, Vertigo, Nasal discharge, Oral lesions, Throat pain, Hoarseness, Ear Pain, Running Nose, Epistaxis, Sinus Pain, Toothache, Odynophagia Respiratory: DENIES: Apneas, Cough, Snoring, Wheezing, Hemoptysis, Sputum production, Shortness of breath Cardiovascular: DENIES: Chest pain, Palpitations, Syncope, Dyspnea on Exertion , PND, Lower Extremity Edema, Orthopnea, Claudication Gastrointestinal: DENIES: Abdominal pain, Black stools, Bloody stools, Constipation, Diarrhea, Nausea, Vomiting, Difficulty Swallowing, Anorexia Musculoskeletal: DENIES: Joint pain, Muscle aches, Stiffness, Joint Swelling, Back pain, Neck pain Integumentary: DENIES: Abnormal pigmentation, Nail changes, Pruritus, Rash Hematologic/lymphatic: DENIES: Bruising, Lymphadenopathy Neurologic: DENIES: Abnormal gait, Headache, Localized weakness, Paresthesias, Seizures, Speech Problems, Tremor, Poor Balance Psychiatric: DENIES: Anxiety, Confusion, Mood changes, Depression, Hallucinations, Agitation, Suicidal Ideation, Homicidal Ideation, Delusions Past Family Social History Coded Allergies: No Known Allergies (Unverified , 05/06/16) Discontinued Reported Medications Quetiapine (Seroquel)25 Mg TabUnknown Dose PO BID #60 TAB Ref 0 04/13/16 Trazodone 50 Mg TabUnknown Dose PO HS #30 TAB Ref 0 04/13/16 Venlafaxine (Effexor)25 Mg TabUnknown Dose PO Q12H #60 TAB Ref 0 04/13/16 Current Medications Medications (Trade) Dose Ordered Sig/Marely Route Start Time Stop Time Status Last Admin (Folate) 1 mg DAILY PO 05/06/16 09:00 05/11/16 08:59 05/06/16 08:12 (Vitamin B1) 100 mg DAILY PO 05/06/16 09:00 05/06/16 08:12 (Theragran M Tab) 1 tab DAILY PO 05/06/16 09:00 05/11/16 08:59 05/06/16 08:12 (Catapres) 0.1 mg Q6H PRN PO 05/05/16 23:30 (Romazicon Inj) 0.2 mg Q1M PRN IV PUSH 05/05/16 23:30 (Ativan) 1 mg Q4H PRN PO 05/05/16 23:30 05/06/16 12:13 (Ativan Inj) 1 mg Q4H PRN IV PUSH 05/05/16 23:30 (Ativan) 2 mg Q2H PRN PO 05/05/16 23:30 (Ativan Inj) 2 mg Q2H PRN IV PUSH 05/05/16 23:30 (Ativan Inj) 2 mg Q1H PRN IV PUSH 05/05/16 23:30 05/06/16 08:13 (Ativan Inj) 2 mg Q15M PRN IV PUSH 05/05/16 23:30 (Aspirin Chew) 81 mg DAILY CHEW 05/06/16 11:00 05/06/16 12:13 (Lipitor) 40 mg DAILY PO 05/06/16 11:00 05/06/16 12:13 Family History Patient has aunt with depression, his mother and father are healthy, he denies any additional family psychiatric history Social History Patient was born and raised in [place], he arrived to [place] in the , his divorce, homeless, 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 Physical Exam Vital Signs Vital Signs Date Time Temp Pulse Resp B/P Pulse Ox O2 Delivery O2 Flow Rate FiO2 05/06/16 08:23 75 20 130/82 98 05/06/16 02:12 97.5 05/06/16 00:00 Room Air Mental Status Examination Appearance Overweight man, poor hygiene, poorly than his stated age, street clothes, he is calm and cooperative Speech: Unremarkable Orientation: x3 Memory: Unremarkable Thought Process: Logical Thought Content: Unremarkable Hallucination Type: None Suicidal Ideation: No Previous Suicide Attempts: Yes Homicidal Ideation: No Previous Homicide Attempts: No Insight: Good Affect: Good Mood: Appropriate Motor Activity: Normal gait Assessment & Plan Problem List: (1) Alcohol abuse with alcohol-induced mood disorder Assessment & Plan: At the moment of this evaluation the patient does not present any acute, subjective or objective symptomatology of depression, anxiety , michelle or perceptual disturbances. Patient denies suicidal or homicidal ideation, he denies visual and auditory hallucinations. Recent suicidal statement was most probably secondary to acute alcohol intoxication, poor judgment, maybe also malingering with secondary gain of getting a bed in the hospital, but not to a primary psychiatric condition. Patient does not meet criteria for psychiatric admission at this moment. He will benefit of alcohol detox program and long-term rehabilitation program. Support, motivation psycho education provided, will prescribe [id number] mg at bedtime to help with sleep and depression. Consult appreciated. ICD Code: F10.14 Assessment & Plan Estimated LOS: days Laurent Larkin MD May 06, 2016 13:41
--- NOTE | 2016-05-06 15:45 | HHI.FPPN ---
Subjective Subjective Patient seen and examined with the resident team. Case reviewed and discussed with the resident team. Please refer to resident H&P for further details regarding history of present illness, ROS, past medical and surgical history, family and social history. In summary, patient is a 60-year-old male with a history of prior psychiatric hospitalization presenting after suicidal ideation. Of note, when patient came to the emergency room he was found to be intoxicated. He also complained of blurry vision. Patient is seen in his hospital bed in the emergency room this morning, reporting his vision is slightly improved, ophthalmology consultation pending. He denies any feelings of suicidal ideation. Psychiatry consultation pending. [facility] Objective Objective Laboratory Tests - Abnormals Test 05/05/16 19:40 Monocytes (%) (Auto) 9.3 % Random Glucose 71 MG/DL Calcium Level 8.3 MG/DL Aspartate Amino Transf 44 U/L (AST/SGOT) Ethyl Alcohol Level 301 MG/DL Vital Signs 05/05/16 05/05/16 05/06/16 05/06/16 18:03 18:19 00:00 02:12 Temp 98.1 97.5 Pulse 85 79 83 86 Resp 18 18 16 16 B/P 129/82 131/81 103/55 122/75 Pulse Ox 97 95 96 93 O2 Delivery Room Air Room Air 05/06/16 08:23 Pulse 75 Resp 20 B/P 130/82 Pulse Ox 98 INTAKE & OUTPUT 05/06/16 07:00 Intake Total 940 ml Output Total 500 ml Balance 440 ml Physical exam GENERAL: Disheveled male, resting in bed, mildly tremulous SKIN: Warm and dry. No rashes or lesions HEAD: Normocephalic. Atraumatic EYES: No scleral icterus. No injection or drainage. ENT: OP clear. MM Slightly dry. NECK: Supple, trachea midline. No JVD or lymphadenopathy. No audible carotid bruits CARDIOVASCULAR: Regular rate and rhythm without audible murmurs, gallops, or rubs. RESPIRATORY: Breath sounds equal bilaterally. No accessory muscle use. GASTROINTESTINAL: Abdomen soft, non-tender, nondistended. No palpable hepatomegaly. No splenomegaly. MUSCULOSKELETAL: No cyanosis, or edema. No calf tenderness BACK: Nontender without obvious deformity. No CVA tenderness. Neuro: Awake and alert, oriented 3, mildly tremulous. Cranial nerves grossly intact. Normal speech. Assessment Assessment 60-year-old male admitted with: Suicidal ideation Alcohol intoxication Prior mood disorder History of TIAs Complaint of blurry vision Mildly elevated liver enzyme PLAN PLAN Psychiatry and ophthalmology consultation pending Carotid ultrasound Medically optimize with history of TIA with aspirin and statin Counseled on alcohol cessation Case management to assist with outpatient resources Sitter until seen by psych Patient seen and examined with the resident team. Case reviewed and discussed with the resident team. Agree with plan of care as discussed with me and documented in the resident note. Stephanie Del Rio MD May 06, 2016 15:45
[2016-05-06 15:54] VITALS: BP 138/77; PULSE 82; RESP 20; TEMP 98; O2SAT 94
[2016-05-06] MEDS ORDERED: LIPI40TA PO (16:36)
[2016-05-06] MEDS ORDERED: Aspirin Chew CHEW (16:36)
[2016-05-06] MEDS ORDERED: TRAZ100T4 PO (16:37)
--- NOTE | 2016-05-06 16:38 | HHI.DCPOC ---
Discharge Care Plan Goals to Promote Your Health * To prevent worsening of your condition and complications follow all discharge instructions * To maintain your health at the optimal level follow up with your PCP in 1 week Take all medications as prescribed Directions to Meet Your Goals Take your medications as prescribed Follow your dietary instruction Follow activity as directed Keep your appointments as scheduled Take your immunizations and boosters as scheduled If your symptoms worsen call your PCP, if no PCP go to Urgent Care Center or Emergency Room Smoking is Dangerous to Your Health. Avoid second hand smoke Call the 24-hour hour crisis hotline for domestic abuse at Sonja Dukes MD R3 May 06, 2016 16:38 Stephanie Del Rio MD May 06, 2016 16:44
[2016-05-06 18:37] VITALS: BP 148/74; PULSE 93; RESP 18; TEMP 98.3; O2SAT 95
[2016-05-06] MEDS ORDERED: traZODone HCL 100 MG TAB PO ONE (19:30)
[2016-05-06 19:32] VITALS: BP 127/83; PULSE 79; RESP 18; TEMP 98.2; O2SAT 96
[2016-05-07 00:08] VITALS: BP 154/86; PULSE 89; RESP 18; TEMP 98.2; O2SAT 95
[2016-05-07 04:05] VITALS: BP 131/77; PULSE 73; RESP 18; TEMP 98.2; O2SAT 95
[2016-05-07 08:00] VITALS: BP 167/85; PULSE 78; RESP 20; TEMP 96.9; O2SAT 97
[2016-05-07] MEDS: ATORVASTATIN 40 MG TAB PO SCH (08:23)
[2016-05-07] MEDS: FOLIC ACID 1 MG TAB PO SCH (08:23)
[2016-05-07] MEDS: MULTIVITAMINS/MINERALS THERAPEUTIC TAB PO SCH (08:23)
[2016-05-07] MEDS: THIAMINE HCL 100 MG TAB PO SCH (08:23)
[2016-05-07] MEDS: ASPIRIN 81 MG CHEW TAB CHEW SCH (08:23)
--- NOTE | 2016-05-07 09:34 | HHI.FPPN ---
Addendum to progress note ADDENDUM Reason for addendum: Additonal documentation Additional information Resident went to check on Mr. Oseguera this morning, but was told that he had been discharged and had physically left the hospital. The patient was discharged by the primary team yesterday 05/06, but the covering team received a page from the nurse saying that the patient did not have anywhere to go and requested to stay until the morning. (Ivett Campbell MD R1) Ivett Campbell MD R1 May 07, 2016 09:34 Stephanie Del Rio MD May 15, 2016 12:31
--- NOTE | 2016-05-07 17:38 | HHI.DS ---
Discharge Summary Admission Date May 05, 2016 at 22:08 Discharge Date: May 06, 2016 Admitting Diagnosis visual changes, alcohol intoxication, suicidal ideation (1) Suicidal ideation Diagnosis: [place] (2) Malingering Diagnosis: Secondary (3) Visual changes Diagnosis: [place] (4) Alcohol abuse with alcohol-induced mood disorder Diagnosis: Principal Consultants Ophthalmology, Psychiatry Brief History 60 year-old male with alcoholism and MDD, well known to [facility] , presents 05/05/15 with suicidal ideation and visual changes. Pt is a poor historian with poor insight. Visual changes started a few days ago, with increasingly cloudy vision "like looking through paint". Endorses impressions and shapes, not details. Told in past had cataracts, but never symptoms like this before. Denies trauma to eye. Wore glasses 10 years ago, lost them in 2007 when went to long term. High suspicion for malingering as patient tracks people across the room, has full visual eaton, and answered incorrectly every single question (100% inaccuracy) about #fingers per visual field. Reports suicidal thoughts to ED physician, but denies to Family Practice team. Unsure how he would kill himself. Does report "my depression got worse since I'm going blind". On no current psych medications since he can't afford them. Other stressors include landlord/neighbors pressuring him to get a job: "I am not working that 7 days a week hell". Retired [employer]. 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 Drank 2 pints of vodka prior to calling EMS. Denies alcoholism. States he drinks "once every 10 days" for back pain/ arthritis. Hx of DT. Denies fever/chills, nausea/vomiting, chest pain, SOB worse than baseline anxiety, abdominal pain, or leg pain. Reports lumbar back pain. Pt seen in the ED three weeks ago under [facility] for suicidal thoughts (). Psychiatry consulted, diagnosed with alcoholism and substance induced mood d/o, and recommended sobriety, referral to AA, and follow up for alcohol abuse and mental health issues with Rodrigo Garvey. Pt states "nothing" changed in the past three weeks. He did not follow up with Rodrigo Garvey because "I need to do it by myself". Does not want psychotherapy because does not want to pay for it. However, "wants help". CBC/BMP: 05/05/16193905/05/161939 Significant Findings Laboratory Tests Test 05/05/16 19:40 Monocytes (%) (Auto) 9.3 % (0.0-8.0) Random Glucose 71 MG/DL (74-106) Calcium Level 8.3 MG/DL (8.5-10.1) Aspartate Amino Transf 44 U/L (15-37) (AST/SGOT) Ethyl Alcohol Level 301 MG/DL (0-5) PE at Discharge GENERAL: Disheveled male, resting in bed, mildly tremulous SKIN: Warm and dry. No rashes or lesions HEAD: Normocephalic. Atraumatic EYES: No scleral icterus. No injection or drainage. ENT: OP clear. MM Slightly dry. NECK: Supple, trachea midline. No JVD or lymphadenopathy. No audible carotid bruits CARDIOVASCULAR: Regular rate and rhythm without audible murmurs, gallops, or rubs. RESPIRATORY: Breath sounds equal bilaterally. No accessory muscle use. GASTROINTESTINAL: Abdomen soft, non-tender, nondistended. No palpable hepatomegaly. No splenomegaly. MUSCULOSKELETAL: No cyanosis, or edema. No calf tenderness BACK: Nontender without obvious deformity. No CVA tenderness. Neuro: Awake and alert, oriented 3, mildly tremulous. Cranial nerves grossly intact. Normal speech. Hospital Course Mr. Oseguera was admitted to the hospital on observation. Ophthalmology was consulted for assistance with diagnosis and treatment of vision changes and recommended outpatient cataract surgery to improve his vision. Psychiatry was consulted for assistance with diagnosis/treatment of pathology behind suicide ideation and also to rule out malingering. The psychiatrist's assessment was that his recent suicidal statement was most probably secondary to acute alcohol intoxication, poor judgment, and some element of malingering with secondary gain of getting a bed and food at a hospital. He did not meet criteria for psychiatric admission and was prescribed trazodone 100 mg by mouth at bedtime to help with sleep and depression. He was discharged home in stable condition. Pt Condition on Discharge: Stable Discharge Disposition: Discharge Home Discharge Instructions DIET: Follow Instructions for: Heart Healthy Diet Activities you can perform: Regular-No Restrictions Follow up Referrals: Ophthalmology - 1 Week New Medications: Trazodone (Trazodone) 100 Mg Tab 100 MG PO HS Control Depression #30 Ref 0 TAB Atorvastatin (Lipitor) 40 Mg Tab 40 MG PO HS #30 TAB ([Aspirin Chew]) 81 MG CHEW 81 MG CHEW DAILY #30 TAB.CHEW Ivett Campbell MD R1 May 07, 2016 17:38
== END 2016-05-07 09:20 | disposition home or self-care (01) ==
LOC: NEPC 18:02 → NEDA 22:08 → NEPFCDU 05-06 01:54
PROVIDERS: ADMIT Family Medicine; ATTEND Family Medicine
DX: H25.043 Posterior subcapsular polar age-related cataract, bilateral (principal); F10.24 Alcohol dependence with alcohol-induced mood disorder; R45.851 Suicidal ideations; M54.5 Low back pain; G89.29 Other chronic pain; F17.210 Nicotine dependence, cigarettes, uncomplicated; Y90.8 Blood alcohol level of 240 mg/100 ml or more; Z86.73 Personal history of transient ischemic attack (TIA), and cerebral infarction without residual deficits; Z76.5 Malingerer [conscious simulation]; Z59.0 Homelessness
CPT/HCPCS: 70450; 80053; 80307; 80320; 85025; 93880; 96374; 99285; G0378; J2060; J7030; 76937

== ENCOUNTER 2016-05-07 20:51 | Emergency (ER) | payer OTHER ==
[~2016-05-07 20:51] MED LIST changes: +Aspirin Chew CHEW; +LIPI40TA PO; -SERO25TA PO; +TRAZ100T4 PO; -TRAZ50TA12 PO; -VENL25TA PO
[2016-05-07 21:03] VITALS: BP 133/83; PULSE 79; RESP 18; TEMP 97.8; O2SAT 97
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
[2016-05-07 22:23] LABS: AUTOMATED NEUTROPHIL # 3.5 TH/MM3 (1.8-7.7); BASOPHIL % 0.8 % (0.0-2.0); EOSINOPHIL % 0.8 % (0.0-4.0); HEMATOCRIT 43.4 % (39.0-51.0); HEMO FLAGS DIFF FINAL; LYMPH % 29.9 % (9.0-44.0); LYMPHOCYTE # 1.8 TH/MM3 (1.0-4.8); MEAN CELL VOLUME 90.6 FL (80.0-100.0); MEAN CORPUSCULAR HGB CONC 34.2 % (32.0-36.0); MONO % 10.5 % (0.0-8.0); PLATELET COUNT 200 TH/MM3 (150-450); RED BLOOD COUNT 4.79 MIL/MM3 (4.50-5.90); RED CELL DISTRIBUTION WIDTH 13.8 % (11.6-17.2)
[2016-05-07 22:32] LABS: AMPHETAMINE, URINE NEG (NEG); BARBITURATES, URINE NEG (NEG); COCAINE, URINE NEG (NEG)
[2016-05-07 22:44] LABS: ALKALINE PHOSPHATASE 81 U/L (45-117); ALT (GPT) 75 U/L (12-78); ANION GAP 11 MEQ/L (5-15); AST (GOT) 92 U/L (15-37); BICARBONATE 23.3 MEQ/L (21.0-32.0); BLOOD UREA NITROGEN 7 MG/DL (7-18); CHLORIDE 106 MEQ/L (98-107); GLOMERULAR FILTRATION RATE 116 ML/MIN (>89); POTASSIUM 3.3 MEQ/L (3.5-5.1); SODIUM (NA) 140 MEQ/L (136-145); TOTAL BILIRUBIN ADULT 0.6 MG/DL (0.2-1.0)
[2016-05-07] MEDS ORDERED: POTASSIUM CHLORIDE 20 MEQ CONTROLLED RELEASE TAB PO ONE (23:30)
[2016-05-07] MEDS ORDERED: MAGNESIUM OXIDE 400 MG TAB PO ONE (23:30)
[2016-05-08 00:25] VITALS: BP 117/72; PULSE 83; RESP 19; O2SAT 96
== END 2016-05-08 01:11 ==
LOC: NEPA 20:51 → NEPJ 05-08 01:11
DX: F10.14 Alcohol abuse with alcohol-induced mood disorder (principal); R45.851 Suicidal ideations; E87.6 Hypokalemia; F17.200 Nicotine dependence, unspecified, uncomplicated; Z87.39 Personal history of other diseases of the musculoskeletal system and connective tissue; Z86.59 Personal history of other mental and behavioral disorders
CPT/HCPCS: 80053; 80307; 80320; 85025; 99285

== ENCOUNTER 2016-06-21 13:30 | Emergency (ER) | payer OTHER ==
[~2016-06-21] VITALS: Ht 182.9 cm; Wt 100.0 kg
[2016-06-21 13:41] VITALS: BP 124/77; PULSE 84; RESP 18; TEMP 97.8; O2SAT 95
[2016-06-21 13:45] VITALS: RESP 18; O2SAT 95
[2016-06-21] MEDS ORDERED: SODIUM CHLORIDE 0.9% FLUSH 10 ML FLUSH IVF PRN (13:45)
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
[2016-06-21 14:21] VITALS: BP 124/71; PULSE 80; RESP 18; O2SAT 97
--- NOTE | 2016-06-21 14:31 | RADRPT ---
EXAM DATE/TIME: 06/21/2016 13:56 [facility] COMPARISON: No previous studies available for comparison. INDICATIONS : Chest pain, disoriented. MEDICAL HISTORY : None. SURGICAL HISTORY : None. ENCOUNTER: Initial ACUITY: 1 day PAIN SCORE: 4/10 LOCATION: Bilateral chest FINDINGS: A single view of the chest demonstrates the lungs to be symmetrically aerated without evidence of mas s, infiltrate or effusion. The cardiomediastinal contours are unremarkable. Osseous structures are intact. CONCLUSION: Normal examination. Rukhsana Mansfield MD on June 21, 2016 at 14:30 Board Certified Radiologist. This report was verified electronically.
[2016-06-21 14:40] LABS: AUTOMATED NEUTROPHIL # 1.8 TH/MM3 (1.8-7.7); BASOPHIL % 0.7 % (0.0-2.0); EOSINOPHIL % 0.9 % (0.0-4.0); HEMATOCRIT 43.6 % (39.0-51.0); HEMO FLAGS DIFF FINAL; LYMPH % 41.5 % (9.0-44.0); LYMPHOCYTE # 1.7 TH/MM3 (1.0-4.8); MEAN CELL VOLUME 91.8 FL (80.0-100.0); MEAN CORPUSCULAR HEMOGLOBIN 31.8 PG (27.0-34.0); MEAN CORPUSCULAR HGB CONC 34.6 % (32.0-36.0); MONO % 11.6 % (0.0-8.0); NEUT % 45.3 % (16.0-70.0); PLATELET COUNT 143 TH/MM3 (150-450); RED BLOOD COUNT 4.75 MIL/MM3 (4.50-5.90); RED CELL DISTRIBUTION WIDTH 14.6 % (11.6-17.2)
[2016-06-21] MEDS: ORPHENADRINE INJ 60 MG/2 ML AMP IV ONE (14:45)
[2016-06-21] MEDS: SODIUM CHLORID 0.9% 500 ML INJ 500 ML IV ONE (14:45)
[2016-06-21] MEDS: KETOROLAC TROMETHAMINE 30 MG/ML (IVP) VIAL IV PUSH ONE (14:45)
[2016-06-21] MEDS: ASPIRIN 81 MG CHEW TAB CHEW ONE (14:45)
--- NOTE | 2016-06-21 14:46 | RADRPT ---
EXAM DATE/TIME: 06/21/2016 14:26 [facility] COMPARISON: CT BRAIN W/O CONTRAST, May 05, 2016, 19:05. INDICATIONS : Left arm weakness. RADIATION DOSE: 46.17 CTDIvol (mGy) IF STROKE ALERT - check box below MEDICAL HISTORY : Stroke. Seizures. Cardiovascular disease SURGICAL HISTORY : None. ENCOUNTER: Initial ACUITY: 2 days PAIN SCALE: 3/10 LOCATION: cranial TECHNIQUE: Multiple contiguous axial images were obtained of the head. Using automated exposure control and adj ustment of the mA and/or kV according to patient size, radiation dose was kept as low as reasonably a chievable to obtain optimal diagnostic quality images. FINDINGS: CEREBRUM: The ventricles are normal for age. No evidence of midline shift, mass lesion, hemorrhage or acute in farction. No extra-axial fluid collections are seen. POSTERIOR FOSSA: The cerebellum and brainstem are intact. The 4th ventricle is midline. The cerebellopontine angle i s unremarkable. EXTRACRANIAL: The visualized portion of the orbits is intact. SKULL: The calvaria is intact. No evidence of skull fracture. CONCLUSION: Normal examination. Rukhsana Mansfield MD on June 21, 2016 at 14:43 Board Certified Radiologist. This report was verified electronically.
[2016-06-21 14:54] LABS: APTT (PATIENT) 24.8 SEC (24.3-30.1); INTERNATIONAL NORMALIZED RATIO 0.9 RATIO; PROTHROMBIN TIME - PATIENT 10.1 SEC (9.8-11.6)
[2016-06-21 14:55] LABS: AMPHETAMINE, URINE NEG (NEG); BARBITURATES, URINE NEG (NEG); COCAINE, URINE NEG (NEG)
[2016-06-21 15:09] LABS: ALT (GPT) 84 U/L (12-78); ANION GAP 13 MEQ/L (5-15); AST (GOT) 104 U/L (15-37); BICARBONATE 19.3 MEQ/L (21.0-32.0); BLOOD UREA NITROGEN 6 MG/DL (7-18); CHLORIDE 107 MEQ/L (98-107); GLOMERULAR FILTRATION RATE 109 ML/MIN (>89); MAGNESIUM 1.8 MG/DL (1.5-2.5); POTASSIUM 3.8 MEQ/L (3.5-5.1); SODIUM (NA) 139 MEQ/L (136-145)
[2016-06-21 15:13] LABS: ALKALINE PHOSPHATASE 88 U/L (45-117); CREATINE KINASE 136 U/L (39-308); TOTAL BILIRUBIN ADULT 0.5 MG/DL (0.2-1.0)
[2016-06-21] MEDS: SODIUM CHLOR 0.9% 1000 ML INJ 1,000 ML IV ONE (15:29)
[2016-06-21 15:31] LABS: CKMB 1.7 NG/ML (0.5-3.6)
[2016-06-21 17:22] VITALS: BP 131/68; PULSE 79; RESP 18; O2SAT 97
[2016-06-21] MEDS: IOHEXOL 350 MG/ML 10 ML VIAL (for RAD DIAG) IV ONE (17:31)
--- NOTE | 2016-06-21 17:44 | RADRPT ---
EXAM DATE/TIME: 06/21/2016 17:15 [facility] COMPARISON: No previous studies available for comparison. INDICATIONS : Chest pain. IV CONTRAST: 75 cc Omnipaque 350 (iohexol) IV RADIATION DOSE: 14.83 CTDIvol (mGy) MEDICAL HISTORY : Seizures. Stroke SURGICAL HISTORY : None. ENCOUNTER: Initial ACUITY: 1 day PAIN SCALE: 4/10 LOCATION: Bilateral chest TECHNIQUE: Volumetric scanning of the chest was performed using a pulmonary embolism protocol MIP images were re constructed. Using automated exposure control and adjustment of the mA and/or kV according to patien t size, radiation dose was kept as low as reasonably achievable to obtain optimal diagnostic quality images. FINDINGS: No filling defects are identified to suggest pulmonary embolic disease. There is no pleural or pericardial effusion. There is dependent atelectasis in the lungs. No acute fi ndings seen in the visualized upper abdomen. Fatty liver. Calcified left hilar lymph nodes. CONCLUSION: 1. Negative for pulmonary embolus. Dependent atelectasis in the lungs. Fatty liver. Kwame Yo MD on June 21, 2016 at 17:40 Board Certified Radiologist. This report was verified electronically.
[2016-06-21 21:41] VITALS: BP 130/73; PULSE 81; RESP 18; O2SAT 95
[2016-06-21 22:00] VITALS: BP 130/68; PULSE 93; RESP 18; O2SAT 98
[2016-06-22 02:16] VITALS: BP 114/58; PULSE 79; RESP 19; O2SAT 98
[2016-06-22 06:33] VITALS: BP 138/91; PULSE 72; RESP 18
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
[2016-06-22 08:52] VITALS: BP 138/91; PULSE 72; RESP 18
--- NOTE | 2016-06-22 13:59 | EKG ---
Date Performed: 06/21/2016 Time Performed: 14:15:06 PTAGE: 60 years EKG: Sinus rhythm NORMAL ECG NO PREVIOUS TRACING DOCTOR: Rosibel Montgomery Interpretating Date/Time 06/22/2016 13:58:15
== END 2016-06-22 08:55 | disposition home or self-care (01) ==
LOC: NEPE 13:30 → NEPJ 06-22 08:55
DX: M54.9 Dorsalgia, unspecified (principal); R45.851 Suicidal ideations; F10.120 Alcohol abuse with intoxication, uncomplicated; R11.0 Nausea; R10.13 Epigastric pain; R07.9 Chest pain, unspecified; F31.9 Bipolar disorder, unspecified; F17.200 Nicotine dependence, unspecified, uncomplicated; Z59.0 Homelessness
CPT/HCPCS: 70450; 71010; 71275; 80053; 80307; 82550; 82552; 83735; 84484; 85025; 85379; 85610; 85730; 93005; 96361; 96374; 96375; 99285; J1885; J2360; J7030; J7040; Q9967

== ENCOUNTER 2016-07-25 20:39 | Emergency (ER) | payer OTHER ==
[~2016-07-25] VITALS: Ht 177.8 cm; Wt 100.0 kg
[2016-07-25] MEDS ORDERED: OXYC1TAB63 PO (21:02)
[2016-07-25] MEDS ORDERED: SERO50TA PO (21:02)
[2016-07-25 21:04] VITALS: BP 107/55; PULSE 92; RESP 16; TEMP 98.1; O2SAT 96
--- NOTE | 2016-07-25 21:23 | PD ---
HPI Chief Complaint: Psychiatric Symptoms Time Seen by Provider: 21:23 Travel History International Travel<30 days: No Contact w/Intl Traveler<30days: No Traveled to known affect area: No History of Present Illness HPI 60-year-old male with history of anxiety, depression, bipolar, CAD, hypertension , seizure disorder, presents to emergency department for evaluation under Gannon act. 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 He states that his son recently went to [place] and this has caused a worsening of the symptoms. He states that he is just ready for all to end. He has plans for suicide but tells me he does not want to discuss this with me. He states by any means possible. States he has been drinking alcohol. Denies any other acute medical needs at this time. PFSH Past Medical History Arthritis: Yes Bipolar Disorder: Yes Anxiety: Yes Depression: Yes Cerebrovascular Accident: Yes (cva) Diabetes: No (see EMR) Diminished Hearing: No Herniated Disk: Yes Musculoskeletal: Yes Psychiatric: Yes Social History Alcohol Use: Yes (DAILY, RECENTLY TRIED TO QUIT) Tobacco Use: Yes (2 PPD) Substance Use: Yes Allergies-Medications (Allergen,Severity, Reaction): Coded Allergies: No Known Allergies (Unverified , 07/25/16) Reported Meds & Prescriptions Reported Meds & Active Scripts Active Trazodone (Trazodone HCl) 100 Mg Tab 100 Mg PO HS Lipitor (Atorvastatin Calcium) 40 Mg Tab 40 Mg PO HS [Aspirin Chew] 81 MG Chew 81 Mg CHEW DAILY Reported Oxycodone-Acetaminophen 5-325 mg Tab 2 Tab PO BID PRN Seroquel (Quetiapine Fumarate) 50 Mg Tab 50 Mg PO HS Review of Systems Except as stated in HPI: all other systems reviewed are Neg Physical Exam Narrative GENERAL: Well-nourished, well-developed male patient comes visible he agitated but in no acute distress SKIN: Focused skin assessment warm/dry. HEAD: Normocephalic. EYES: No scleral icterus. No injection or drainage. NECK: Supple, trachea midline. No JVD or lymphadenopathy. CARDIOVASCULAR: Elevated rate and rhythm without murmurs, gallops, or rubs. RESPIRATORY: Breath sounds equal bilaterally. No accessory muscle use. GASTROINTESTINAL: Abdomen soft, non-tender, nondistended. MUSCULOSKELETAL: No cyanosis, or edema. BACK: Nontender without obvious deformity. No CVA tenderness. Data Data Last Documented VS Vital Signs Date Time Temp Pulse Resp B/P Pulse Ox O2 Delivery O2 Flow Rate FiO2 07/26/16 02:28 99 18 110/58 96 07/26/16 01:46 Room Air 07/25/16 21:04 98.1 Orders Complete Blood Count With Diff (07/25/16 21:04) Basic Metabolic Panel (Bmp) (07/25/16 21:04) Psych Screen (07/25/16 21:04) Drug Screen, Random Urine (07/25/16 21:04) Alcohol (Ethanol) (07/25/16 21:04) Olanzapine Inj (Zyprexa Inj) (07/25/16 22:45) Labs Laboratory Tests Test 07/25/16 07/25/16 21:00 21:10 White Blood Count 8.5 TH/MM3 Red Blood Count 4.66 MIL/MM3 Hemoglobin 14.8 GM/DL Hematocrit 44.2 % Mean Corpuscular Volume 94.8 FL Mean Corpuscular Hemoglobin 31.8 PG Mean Corpuscular Hemoglobin 33.5 % Concent Red Cell Distribution Width 14.7 % Platelet Count 249 TH/MM3 Mean Platelet Volume 8.3 FL Neutrophils (%) (Auto) 62.8 % Lymphocytes (%) (Auto) 23.3 % Monocytes (%) (Auto) 12.8 % Eosinophils (%) (Auto) 0.3 % Basophils (%) (Auto) 0.8 % Neutrophils # (Auto) 5.4 TH/MM3 Lymphocytes # (Auto) 2.0 TH/MM3 Monocytes # (Auto) 1.1 TH/MM3 Eosinophils # (Auto) 0.0 TH/MM3 Basophils # (Auto) 0.1 TH/MM3 CBC Comment DIFF FINAL Differential Comment Sodium Level 137 MEQ/L Potassium Level 3.7 MEQ/L Chloride Level 103 MEQ/L Carbon Dioxide Level 23.4 MEQ/L Anion Gap 11 MEQ/L Blood Urea Nitrogen 10 MG/DL Creatinine 0.85 MG/DL Estimat Glomerular Filtration 91 ML/MIN Rate Random Glucose 73 MG/DL Calcium Level 9.2 MG/DL Ethyl Alcohol Level 272 MG/DL Urine Opiates Screen NEG Urine Barbiturates Screen NEG Urine Amphetamines Screen NEG Urine Benzodiazepines Screen NEG Urine Cocaine Screen NEG Urine Cannabinoids Screen NEG MDM Medical Decision Making Medical Screen Exam Complete: Yes Emergency Medical Condition: Yes Medical Record Reviewed: Yes Differential Diagnosis Mood disorder versus personality disorder versus adjustment reaction disorder versus substance abuse Narrative Course 60-year-old male presents to the emergency department for evaluation. CBC and BMP are without acute concern. Toxicology is positive for 272. Patient will be medically cleared and a psychiatric screen for further evaluation and disposition. Mental health screening discussed with the patient. Psychiatric screen ordered. Diagnosis Primary Impression: Alcohol abuse with alcohol-induced mood disorder Condition: Stable Estelle Boyle July 25, 2016 21:23
[2016-07-25 21:29] LABS: AUTOMATED NEUTROPHIL # 5.4 TH/MM3 (1.8-7.7); BASOPHIL # 0.1 TH/MM3 (0-0.2); BASOPHIL % 0.8 % (0.0-2.0); EOSINOPHIL % 0.3 % (0.0-4.0); HEMATOCRIT 44.2 % (39.0-51.0); HEMO FLAGS DIFF FINAL; LYMPH % 23.3 % (9.0-44.0); MEAN CELL VOLUME 94.8 FL (80.0-100.0); MEAN CORPUSCULAR HEMOGLOBIN 31.8 PG (27.0-34.0); MEAN CORPUSCULAR HGB CONC 33.5 % (32.0-36.0); MONO % 12.8 % (0.0-8.0); NEUT % 62.8 % (16.0-70.0); PLATELET COUNT 249 TH/MM3 (150-450); RED BLOOD COUNT 4.66 MIL/MM3 (4.50-5.90); RED CELL DISTRIBUTION WIDTH 14.7 % (11.6-17.2); WHITE BLOOD COUNT 8.5 TH/MM3 (4.0-11.0)
[2016-07-25 22:15] LABS: AMPHETAMINE, URINE NEG (NEG); BARBITURATES, URINE NEG (NEG); COCAINE, URINE NEG (NEG)
[2016-07-25 22:16] LABS: BICARBONATE 23.4 MEQ/L (21.0-32.0); POTASSIUM 3.7 MEQ/L (3.5-5.1)
[2016-07-25] MEDS ORDERED: OLANZapine IM 10 MG VIAL IM ONE (22:45)
[2016-07-26 01:46] VITALS: BP 96/58; PULSE 62; RESP 16; O2SAT 95
[2016-07-26 02:28] VITALS: BP 110/58; PULSE 99; RESP 18; O2SAT 96
== END 2016-07-26 03:08 ==
LOC: NEPD 20:39 → NEPJ 07-26 03:08
DX: F10.14 Alcohol abuse with alcohol-induced mood disorder (principal); F41.8 Other specified anxiety disorders; F17.210 Nicotine dependence, cigarettes, uncomplicated; Y90.8 Blood alcohol level of 240 mg/100 ml or more
CPT/HCPCS: 80048; 80307; 85025; 99285

== ENCOUNTER 2017-04-01 12:16 | Inpatient (IN) | payer OTHER ==
[~2017-04-01] VITALS: Ht 177.8 cm; Wt 54.2 kg
[2017-04-01 12:40] VITALS: BP 140/69; PULSE 117; RESP 20; TEMP 98.2; O2SAT 100
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
[2017-04-01 13:39] LABS: BASOPHIL % 0.4 % (0.0-2.0); HEMATOCRIT 44.5 % (39.0-51.0); HEMOGLOBIN 15.2 GM/DL (13.0-17.0); LYMPH % 11.9 % (9.0-44.0); LYMPHOCYTE # 0.9 TH/MM3 (1.0-4.8); MEAN CELL VOLUME 98.9 FL (80.0-100.0); MEAN CORPUSCULAR HEMOGLOBIN 33.9 PG (27.0-34.0); MEAN CORPUSCULAR HGB CONC 34.2 % (32.0-36.0); MEAN PLATELET VOLUME 8.3 FL (7.0-11.0); MONO % 6.9 % (0.0-8.0); MONOCYTE # 0.5 TH/MM3 (0-0.9); NEUT % 80.8 % (16.0-70.0); PLATELET COUNT 231 TH/MM3 (150-450); RED CELL DISTRIBUTION WIDTH 13.9 % (11.6-17.2); WHITE BLOOD COUNT 7.4 TH/MM3 (4.0-11.0)
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
[2017-04-01 15:03] LABS: ALBUMIN 3.8 GM/DL (3.4-5.0); BICARBONATE 11.8 MEQ/L (21.0-32.0); BLOOD UREA NITROGEN 10 MG/DL (7-18); CALCIUM 8.8 MG/DL (8.5-10.1); CHLORIDE 96 MEQ/L (98-107); CREATININE 0.73 MG/DL (0.60-1.30); GLOMERULAR FILTRATION RATE 109 ML/MIN (>89); GLUCOSE,RANDOM 100 MG/DL (74-106); SODIUM (NA) 129 MEQ/L (136-145)
[2017-04-01 15:04] LABS: ALT (GPT) 64 U/L (12-78); AST (GOT) 114 U/L (15-37)
[2017-04-01 15:06] LABS: ALKALINE PHOSPHATASE 121 U/L (45-117); TOTAL BILIRUBIN ADULT 0.7 MG/DL (0.2-1.0); TOTAL PROTEIN 8.2 GM/DL (6.4-8.2)
[2017-04-01 15:14] LABS: BILIRUBIN, URINE NEG (NEG); BLOOD, URINE NEG (NEG); GLUCOSE,URINE NEG (NEG); HYALINE CAST, URINE 6 /lpf (RARE); KETONE, URINE 40 mg/dL (NEG); NITRITE,URINE NEG (NEG); PH, URINE 5.5 (5.0-8.5); SQUAMOUS EPITHELIAL CELL URINE <1 /hpf (0-5); URINE COLOR YELLOW (YELLW/STRAW); URINE LEUKOCYTE ESTERASE NEG (NEG)
[2017-04-01 15:17] VITALS: BP 121/67; PULSE 82; RESP 18; O2SAT 96
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
[2017-04-01 18:54] VITALS: BP 122/62; PULSE 126; RESP 18; O2SAT 96
[2017-04-01] MEDS ORDERED: LORazepam 2 MG/ML VIAL IV PUSH PRN ×4 (19:00)
[2017-04-01] MEDS ORDERED: FLUMAZENIL 0.5 MG/5 ML VIAL IV PUSH PRN (19:00)
[2017-04-01] MEDS ORDERED: LORazepam 1 MG TAB PO PRN (19:00)
[2017-04-01] MEDS ORDERED: LORazepam 2 MG TAB PO PRN (19:00)
[2017-04-02 02:07] VITALS: BP 142/92; PULSE 111; RESP 18; O2SAT 97
[2017-04-02 06:40] VITALS: BP 139/72; PULSE 99; RESP 19; O2SAT 98
[2017-04-02 10:30] VITALS: BP 103/56; PULSE 97; RESP 18
[2017-04-02] MEDS ORDERED: diphenhydrAMINE HCL 50 MG CAP PO PRN (13:30)
[2017-04-02] MEDS ORDERED: LORazepam 2 MG/ML VIAL IV PUSH PRN ×4 (13:30)
[2017-04-02] MEDS ORDERED: LORazepam 0.5 MG TAB PO PRN (13:30)
[2017-04-02] MEDS ORDERED: traZODone HCL 50 MG TAB PO PRN (13:30)
[2017-04-02] MEDS ORDERED: ALUMINUM/MAGNESIUM/SIMETH 30 ML CUP PO PRN (13:30)
[2017-04-02] MEDS ORDERED: FLUMAZENIL 0.5 MG/5 ML VIAL IV PUSH PRN (13:30)
[2017-04-02] MEDS ORDERED: LORazepam 1 MG TAB PO PRN (13:30)
[2017-04-02] MEDS ORDERED: LORazepam 2 MG/ML VIAL IM PRN ×2 (13:30)
[2017-04-02] MEDS ORDERED: MAGNESIUM HYDROXIDE SUSP 30 ML CUP PO PRN (13:30)
[2017-04-02] MEDS ORDERED: diphenhydrAMINE HCL 50 MG/ML VIAL IM PRN (13:30)
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
[2017-04-02 20:30] VITALS: BP 178/87; PULSE 104; RESP 23; TEMP 98.6; O2SAT 97
[2017-04-03 06:00] VITALS: BP 118/62; PULSE 99; RESP 16; TEMP 98.6; O2SAT 96
[2017-04-03 10:08] LABS: AUTOMATED NEUTROPHIL # 1.8 TH/MM3 (1.8-7.7); BASOPHIL % 1.4 % (0.0-2.0); EOSINOPHIL # 0.1 TH/MM3 (0-0.4); HEMOGLOBIN 13.5 GM/DL (13.0-17.0); LYMPH % 27.1 % (9.0-44.0); LYMPHOCYTE # 0.9 TH/MM3 (1.0-4.8); MEAN CELL VOLUME 98.4 FL (80.0-100.0); MEAN CORPUSCULAR HEMOGLOBIN 33.1 PG (27.0-34.0); MEAN CORPUSCULAR HGB CONC 33.7 % (32.0-36.0); MEAN PLATELET VOLUME 8.8 FL (7.0-11.0); MONO % 14.3 % (0.0-8.0); MONOCYTE # 0.5 TH/MM3 (0-0.9); NEUT % 55.2 % (16.0-70.0); PLATELET COUNT 171 TH/MM3 (150-450); RED BLOOD COUNT 4.06 MIL/MM3 (4.50-5.90); RED CELL DISTRIBUTION WIDTH 13.7 % (11.6-17.2); WHITE BLOOD COUNT 3.3 TH/MM3 (4.0-11.0)
[2017-04-03] MEDS: ACETAMINOPHEN 325 MG TAB PO PRN (10:17)
[2017-04-03] MEDS: LORazepam 2 MG TAB PO PRN ×2 (10:17→21:12)
[2017-04-03 10:36] LABS: ALBUMIN 3.3 GM/DL (3.4-5.0); AST (GOT) 43 U/L (15-37); BICARBONATE 24.3 MEQ/L (21.0-32.0); BLOOD UREA NITROGEN 18 MG/DL (7-18); CALCIUM 9.6 MG/DL (8.5-10.1); CHLORIDE 101 MEQ/L (98-107); CREATININE 0.82 MG/DL (0.60-1.30); GLOMERULAR FILTRATION RATE 95 ML/MIN (>89); GLUCOSE,RANDOM 181 MG/DL (74-106); SODIUM (NA) 137 MEQ/L (136-145)
[2017-04-03 10:37] LABS: CHOLESTEROL 168 MG/DL (120-200)
[2017-04-03 11:05] LABS: ALKALINE PHOSPHATASE 99 U/L (45-117); ALT (GPT) 37 U/L (12-78); CHOLESTEROL/ HDL RATIO 1.47 RATIO; HDL CHOLESTEROL 113.7 MG/DL (40.0-60.0); LDL CHOLESTEROL 37 MG/DL (0-99); TOTAL BILIRUBIN ADULT 0.5 MG/DL (0.2-1.0); TRIGLYCERIDES 85 MG/DL (42-150)
[2017-04-03] MEDS: POTASSIUM CHLORIDE 20 MEQ CONTROLLED RELEASE TAB PO SCH ×2 (11:13→14:40)
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
[2017-04-03 11:39] VITALS: BP 110/72; PULSE 89
[2017-04-03] MEDS: IBUPROFEN 600 MG TAB PO PRN ×2 (11:41→21:13)
[2017-04-03] MEDS: NICOTINE 21 MG/24 HR PATCH T-DERMAL SCH (11:44)
[2017-04-03 12:03] LABS: HEMOGLOBIN A1C 4.4 % (4.3-6.0)
[2017-04-03] MEDS: THIAMINE HCL 100 MG TAB PO SCH (13:07)
[2017-04-03] MEDS: FOLIC ACID 1 MG TAB PO SCH (13:07)
[2017-04-03] MEDS: MULTIVITAMIN TAB PO SCH (13:08)
--- NOTE | 2017-04-03 16:00 | HHI.PYPN ---
Subjective Remarks Patient was seen and case discussed with nursing. Per nursing patient has a noted history of malingering. Per nursing CIWA is 19 and he received 2 mg of Ativan this morning. However, for my interview there are very mild tremors that become more exaggerated when he was asked about them, there is a headache. There is no nausea or vomiting. There is no confusion, patient is alert and oriented 4. Vital signs are within normal limits. He says he does have visual and auditory hallucinations. Patient admits to suicidal ideation with a plan to get hit by car he is discharged Mental Status Examination Appearance: Dirty, Disheveled Consciousness: Alert Orientation: x4 Motor Activity: Abnormal gait Speech: Unremarkable Language: Adequate Fund of Knowledge: Adequate Attention and Concentration: Adequate Memory: Unremarkable Mood: Sad, Anxious Affect: Sad, Anxious Thought Process & Associations: Intact Thought Content: Appropriate Hallucination Type: None Delusion Type: None Suicidal Ideation: Yes Suicidal Plan: Yes Suicidal Intention: No Homicidal Ideation: No Homicidal Plan: No Homicidal Intention: No Insight: Fair Judgment: Impulsive Results Labs Test 04/03/17 08:30 White Blood Count 3.3 TH/MM3 Red Blood Count 4.06 MIL/MM3 Hemoglobin 13.5 GM/DL Hematocrit 40.0 % Mean Corpuscular Volume 98.4 FL Mean Corpuscular Hemoglobin 33.1 PG Mean Corpuscular Hemoglobin Concent 33.7 % Red Cell Distribution Width 13.7 % Platelet Count 171 TH/MM3 Mean Platelet Volume 8.8 FL Neutrophils (%) (Auto) 55.2 % Lymphocytes (%) (Auto) 27.1 % Monocytes (%) (Auto) 14.3 % Eosinophils (%) (Auto) 2.0 % Basophils (%) (Auto) 1.4 % Neutrophils # (Auto) 1.8 TH/MM3 Lymphocytes # (Auto) 0.9 TH/MM3 Monocytes # (Auto) 0.5 TH/MM3 Eosinophils # (Auto) 0.1 TH/MM3 Basophils # (Auto) 0.0 TH/MM3 CBC Comment DIFF FINAL Differential Comment Blood Urea Nitrogen 18 MG/DL Creatinine 0.82 MG/DL Random Glucose 181 MG/DL Total Protein 7.0 GM/DL Albumin 3.3 GM/DL Calcium Level 9.6 MG/DL Alkaline Phosphatase 99 U/L Aspartate Amino Transf (AST/SGOT) 43 U/L Alanine Aminotransferase (ALT/SGPT) 37 U/L Total Bilirubin 0.5 MG/DL Sodium Level 137 MEQ/L Potassium Level 3.3 MEQ/L Chloride Level 101 MEQ/L Carbon Dioxide Level 24.3 MEQ/L Anion Gap 12 MEQ/L Estimat Glomerular Filtration Rate 95 ML/MIN Hemoglobin A1c 4.4 % Triglycerides Level 85 MG/DL Cholesterol Level 168 MG/DL LDL Cholesterol 37 MG/DL HDL Cholesterol 113.7 MG/DL Cholesterol/HDL Ratio 1.47 RATIO Vitamin B12 Level 555 PG/ML 25-Hydroxy Vitamin D Total 16.2 ng/ML Thyroid Stimulating Hormone 3rd Gen 1.690 uIU/ML Vitals/IOs Vital Signs Date Time Temp Pulse Resp B/P (MAP) Pulse Ox O2 Delivery O2 Flow Rate FiO2 04/03/17 11:39 89 110/72 (85) 04/03/17 06:00 98.6 16 96 04/02/17 06:40 Room Air Intake and Output 04/03/17 04/03/17 04/04/17 08:00 16:00 00:00 Intake Total 1180 ml Balance 1180 ml Assessment & Plan Problem List: (1) Adjustment disorder with depressed mood ICD Codes: F43.21 - Adjustment disorder with depressed mood Assessment & Plan Continue current treatment plan Justification for Cont. Inpt. Patient would decompensate in a less restrictive setting Jd Fan DO Apr 03, 2017 16:00
[2017-04-03 18:06] VITALS: BP 110/57; PULSE 97; RESP 18; TEMP 98.6; O2SAT 100
[2017-04-04 06:14] VITALS: BP 136/64; PULSE 78; RESP 17; TEMP 98.2; O2SAT 99
[2017-04-04] MEDS: FOLIC ACID 1 MG TAB PO SCH (08:42)
[2017-04-04] MEDS: THIAMINE HCL 100 MG TAB PO SCH (08:42)
[2017-04-04] MEDS: LORazepam 1 MG TAB PO PRN ×2 (08:42→22:55)
[2017-04-04] MEDS: MULTIVITAMIN TAB PO SCH (08:42)
[2017-04-04] MEDS: NICOTINE 21 MG/24 HR PATCH T-DERMAL SCH (08:44)
[2017-04-04] MEDS: ACETAMINOPHEN 325 MG TAB PO PRN (08:45)
[2017-04-04] MEDS: REMOVE OLD PATCH T-DERMAL SCH (09:00)
[2017-04-04 09:05] LABS: BICARBONATE 25.4 MEQ/L (21.0-32.0); CALCIUM 9.6 MG/DL (8.5-10.1); CREATININE 0.77 MG/DL (0.60-1.30); MAGNESIUM 1.3 MG/DL (1.5-2.5)
[2017-04-04] MEDS ORDERED: POTASSIUM CHLORIDE 20 MEQ CONTROLLED RELEASE TAB PO ONE (11:15)
[2017-04-04] MEDS: MAGNESIUM OXIDE 400 MG TAB PO SCH ×2 (11:36→21:06)
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
[2017-04-04] MEDS: chlordiazePOXIDE 25 MG CAP PO SCH ×2 (12:18→18:00)
--- NOTE | 2017-04-04 12:45 | EKG ---
Date Performed: 04/03/2017 Time Performed: 13:26:41 PTAGE: 61 years EKG: Sinus rhythm NORMAL ECG Since PREVIOUS TRACING , no significant change noted PREVIOUS TRACIN06/21/2016 14.15 DOCTOR: Dany White Interpretating Date/Time 04/04/2017 12:43:56
--- NOTE | 2017-04-04 16:35 | HHI.PYPN ---
Subjective Remarks Patient was seen and case discussed with nursing. Patient was seen by the medical doctor who leaves that patient's withdrawal is getting worse started him on regular Librium in addition to the CIWA protocol. This was based on an observation that tremors were worse. Nursing says that tremors were slightly worse today. During this interview, tremors a very mild. There are no other withdrawal symptoms such as nausea, vomiting, confusion or labile vital signs. I continue to have concerns for malingering. Patient is vague, wandering, indirect, and superficial. He says he sees shadows, hears voices, and has suicidal ideation area be denies any plan or intent of hurting himself here in the hospital Mental Status Examination Appearance: Dirty, Disheveled Consciousness: Alert Orientation: x4 Motor Activity: Abnormal gait Speech: Unremarkable Language: Adequate Fund of Knowledge: Adequate Attention and Concentration: Adequate Memory: Unremarkable Mood: Sad, Anxious Affect: Sad, Anxious Thought Process & Associations: Intact Thought Content: Appropriate Hallucination Type: Auditory, Visual Delusion Type: None Suicidal Ideation: Yes Suicidal Plan: No Suicidal Intention: No Homicidal Ideation: No Homicidal Plan: No Homicidal Intention: No Insight: Fair Judgment: Impulsive Results Labs Test 04/04/17 08:06 Blood Urea Nitrogen 15 MG/DL Creatinine 0.77 MG/DL Random Glucose 166 MG/DL Calcium Level 9.6 MG/DL Magnesium Level 1.3 MG/DL Sodium Level 137 MEQ/L Potassium Level 3.7 MEQ/L Chloride Level 102 MEQ/L Carbon Dioxide Level 25.4 MEQ/L Anion Gap 10 MEQ/L Estimat Glomerular Filtration Rate 102 ML/MIN Vitals/IOs Vital Signs Date Time Temp Pulse Resp B/P (MAP) Pulse Ox O2 Delivery O2 Flow Rate FiO2 04/04/17 06:14 98.2 78 17 136/64 (88) 99 04/02/17 06:40 Room Air Intake and Output 04/04/17 04/04/17 04/05/17 08:00 16:00 00:00 Intake Total 840 ml 480 ml Balance 840 ml 480 ml Assessment & Plan Problem List: (1) Adjustment disorder with depressed mood ICD Codes: F43.21 - Adjustment disorder with depressed mood Assessment & Plan Continue further evaluation for malingering and consider tapering the Librium tomorrow Justification for Cont. Inpt. Patient would decompensate in a less restrictive setting Jd Fan DO Apr 04, 2017 16:35
[2017-04-04 19:01] VITALS: BP 113/75; PULSE 99; RESP 18; TEMP 98.1; O2SAT 97
[2017-04-05 05:52] VITALS: BP 113/77; PULSE 101; RESP 20; TEMP 97.8; O2SAT 96
[2017-04-05] MEDS: REMOVE OLD PATCH T-DERMAL SCH (09:00)
[2017-04-05] MEDS: MULTIVITAMIN TAB PO SCH (09:00)
[2017-04-05] MEDS: THIAMINE HCL 100 MG TAB PO SCH (09:00)
[2017-04-05] MEDS: NICOTINE 21 MG/24 HR PATCH T-DERMAL SCH (09:00)
[2017-04-05] MEDS: chlordiazePOXIDE 25 MG CAP PO SCH ×4 (09:00→17:03)
[2017-04-05] MEDS: FOLIC ACID 1 MG TAB PO SCH (09:00)
[2017-04-05] MEDS: MAGNESIUM OXIDE 400 MG TAB PO SCH ×2 (09:00→20:56)
[2017-04-05 10:48] LABS: BICARBONATE 24.9 MEQ/L (21.0-32.0); CALCIUM 9.8 MG/DL (8.5-10.1); CREATININE 0.75 MG/DL (0.60-1.30); MAGNESIUM 1.7 MG/DL (1.5-2.5); PHOSPHORUS 2.9 MG/DL (2.5-4.9)
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
[2017-04-05 17:28] VITALS: BP 114/72; PULSE 92; RESP 18; TEMP 98.2; O2SAT 98
[2017-04-06 05:42] VITALS: BP 88/64; PULSE 80; RESP 18; TEMP 98.3; O2SAT 97
[2017-04-06] MEDS: chlordiazePOXIDE 25 MG CAP PO SCH ×3 (08:58→17:50)
[2017-04-06] MEDS: MAGNESIUM OXIDE 400 MG TAB PO SCH ×2 (08:58→20:53)
[2017-04-06] MEDS: THIAMINE HCL 100 MG TAB PO SCH (08:58)
[2017-04-06] MEDS: FOLIC ACID 1 MG TAB PO SCH (08:59)
[2017-04-06] MEDS: REMOVE OLD PATCH T-DERMAL SCH (08:59)
[2017-04-06] MEDS: MULTIVITAMIN TAB PO SCH (08:59)
[2017-04-06] MEDS: NICOTINE 21 MG/24 HR PATCH T-DERMAL SCH (08:59)
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
--- NOTE | 2017-04-06 15:06 | HHI.PYPN ---
Subjective Remarks Patient seen in day room with with nurse Sonja, chart review, patient compliant medication. Patient appears somewhat confused today and tearful. Saying he still going through withdrawal. He is otherwise been no behavioral problem. For now continue treatment Review of Systems Except as stated in HPI: all other systems reviewed are Neg Mental Status Examination Appearance: Dirty, Disheveled Consciousness: Alert Orientation: x4 Motor Activity: Abnormal gait Speech: Unremarkable Language: Adequate Fund of Knowledge: Adequate Attention and Concentration: Adequate Memory: Unremarkable Mood: Sad, Anxious Affect: Sad, Anxious Thought Process & Associations: Intact Thought Content: Appropriate Hallucination Type: Auditory, Visual Delusion Type: None Suicidal Ideation: Yes Suicidal Plan: No Suicidal Intention: No Homicidal Ideation: No Homicidal Plan: No Homicidal Intention: No Insight: Fair Judgment: Impulsive Results Vitals/IOs Vital Signs Date Time Temp Pulse Resp B/P (MAP) Pulse Ox O2 Delivery O2 Flow Rate FiO2 04/06/17 05:42 98.3 80 18 88/64 (72) 97 Intake and Output 04/06/17 04/06/17 04/06/17 07:59 15:59 23:59 Intake Total 480 ml 920 ml Balance 480 ml 920 ml Assessment & Plan Problem List: (1) Adjustment disorder with depressed mood ICD Codes: F43.21 - Adjustment disorder with depressed mood (2) Alcohol abuse with intoxication ICD Codes: F10.129 - Alcohol abuse with intoxication, unspecified Assessment & Plan Estimated LOS: days patient continues somewhat sad and tearful will may be related to his continuing detox. There also may be a component of our lowering the Librium. For now continue treatment Justification for Cont. Inpt. At this time patient will decompensate placed in the lower level of care Discharge Planning Placement may become problematic Boom England MD Apr 06, 2017 15:06
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
[2017-04-06 18:21] VITALS: BP 93/50; PULSE 86; RESP 18; TEMP 98.2; O2SAT 97
[2017-04-07 05:47] VITALS: BP 108/64; PULSE 88; RESP 20; TEMP 98.1; O2SAT 97
[2017-04-07] MEDS: THIAMINE HCL 100 MG TAB PO SCH (08:49)
[2017-04-07] MEDS: MAGNESIUM OXIDE 400 MG TAB PO SCH ×2 (08:49→20:10)
[2017-04-07] MEDS: MULTIVITAMIN TAB PO SCH (08:49)
[2017-04-07] MEDS: FOLIC ACID 1 MG TAB PO SCH (08:49)
[2017-04-07] MEDS: chlordiazePOXIDE 25 MG CAP PO SCH ×3 (08:49→17:50)
[2017-04-07] MEDS: NICOTINE 21 MG/24 HR PATCH T-DERMAL SCH (08:49)
[2017-04-07] MEDS: REMOVE OLD PATCH T-DERMAL SCH (08:55)
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
--- NOTE | 2017-04-07 15:42 | HHI.PYPN ---
Subjective Remarks Patient seen in day room with nurse Flores, chart review, patient compliant medications. She continues somewhat sad though also with a feeling of and entitlement, patient making some excuses as rationalizations for not making effort to get sobriety her to find perhaps a better living situation then a tent. He also states he had some type of corrective shoes that he can't find at this time. Will have staff check on this. We will decrease his scheduled Librium to 25 mg twice a day we will discontinue his when necessary Ativan to continue the Ciwa protocol at the present time. Review of Systems Except as stated in HPI: all other systems reviewed are Neg Mental Status Examination Appearance: Dirty, Disheveled Consciousness: Alert Orientation: x4 Motor Activity: Abnormal gait Speech: Unremarkable Language: Adequate Fund of Knowledge: Adequate Attention and Concentration: Adequate Memory: Unremarkable Mood: Sad, Anxious Affect: Sad, Anxious Thought Process & Associations: Intact Thought Content: Appropriate Hallucination Type: Auditory, Visual Delusion Type: None Suicidal Ideation: Yes Suicidal Plan: No Suicidal Intention: No Homicidal Ideation: No Homicidal Plan: No Homicidal Intention: No Insight: Fair Judgment: Impulsive Results Vitals/IOs Vital Signs Date Time Temp Pulse Resp B/P (MAP) Pulse Ox O2 Delivery O2 Flow Rate FiO2 04/07/17 05:47 98.1 88 20 108/64 (79) 97 Intake and Output 04/07/17 04/07/17 04/08/17 08:00 16:00 00:00 Intake Total 240 ml 480 ml Balance 240 ml 480 ml Assessment & Plan Problem List: (1) Adjustment disorder with depressed mood ICD Codes: F43.21 - Adjustment disorder with depressed mood (2) Alcohol abuse with intoxication ICD Codes: F10.129 - Alcohol abuse with intoxication, unspecified Assessment & Plan Estimated LOS: days patient continues somewhat depressed, though that appears to be of degree of manipulation developing with them related to placement treatment and his commitment to sobriety Justification for Cont. Inpt. At this time patient would decompensated placed in a lower level of care Discharge Planning Possible return to living homeless a tent. Boom England MD Apr 07, 2017 15:42
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
[2017-04-07 18:00] VITALS: BP 121/77; PULSE 90; RESP 20; TEMP 98.7; O2SAT 100
[2017-04-07] MEDS: IBUPROFEN 600 MG TAB PO PRN (20:19)
[2017-04-08 01:47] VITALS: BP 126/61; PULSE 87; RESP 16; TEMP 98; O2SAT 95
[2017-04-08 05:47] VITALS: BP 126/61; PULSE 86; RESP 17; TEMP 97.8; O2SAT 99
[2017-04-08] MEDS: MULTIVITAMIN TAB PO SCH (07:47)
[2017-04-08] MEDS: MAGNESIUM OXIDE 400 MG TAB PO SCH ×2 (07:47→20:22)
[2017-04-08] MEDS: THIAMINE HCL 100 MG TAB PO SCH (07:47)
[2017-04-08] MEDS: FOLIC ACID 1 MG TAB PO SCH (07:47)
[2017-04-08] MEDS: REMOVE OLD PATCH T-DERMAL SCH (07:48)
[2017-04-08] MEDS: NICOTINE 21 MG/24 HR PATCH T-DERMAL SCH (07:48)
[2017-04-08] MEDS: chlordiazePOXIDE 25 MG CAP PO SCH ×2 (07:48→20:22)
[2017-04-08 08:14] LABS: AUTOMATED NEUTROPHIL # 2.5 TH/MM3 (1.8-7.7); EOSINOPHIL # 0.1 TH/MM3 (0-0.4); EOSINOPHIL % 2.8 % (0.0-4.0); HEMATOCRIT 34.8 % (39.0-51.0); LYMPH % 26.4 % (9.0-44.0); LYMPHOCYTE # 1.2 TH/MM3 (1.0-4.8); MEAN CELL VOLUME 97.1 FL (80.0-100.0); MEAN CORPUSCULAR HEMOGLOBIN 33.6 PG (27.0-34.0); MEAN CORPUSCULAR HGB CONC 34.6 % (32.0-36.0); MEAN PLATELET VOLUME 8.9 FL (7.0-11.0); MONO % 16.2 % (0.0-8.0); MONOCYTE # 0.7 TH/MM3 (0-0.9); NEUT % 53.6 % (16.0-70.0); PLATELET COUNT 197 TH/MM3 (150-450); RED BLOOD COUNT 3.58 MIL/MM3 (4.50-5.90); RED CELL DISTRIBUTION WIDTH 13.3 % (11.6-17.2); WHITE BLOOD COUNT 4.6 TH/MM3 (4.0-11.0)
[2017-04-08 08:42] LABS: BICARBONATE 27.3 MEQ/L (21.0-32.0); CALCIUM 8.8 MG/DL (8.5-10.1); CREATININE 0.65 MG/DL (0.60-1.30); PHOSPHORUS 3.9 MG/DL (2.5-4.9)
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
[2017-04-08] MEDS: IBUPROFEN 600 MG TAB PO PRN (13:42)
--- NOTE | 2017-04-08 15:07 | HHI.PYPN ---
Subjective Remarks Patient seen in day room with nurse, chart review, patient compliant medications. Still showing some anxiety, mood lability with vague paranoid ideation point was had stating he is having bad thoughts. Though is difficult to ascertain if this is an auditory hallucination. Also did talk about discharge plans. Patient is the active alcohol abuser. He would be willing to go to a sober house of 1 is available that he can afford Review of Systems Except as stated in HPI: all other systems reviewed are Neg Mental Status Examination Appearance: Dirty, Disheveled Consciousness: Alert Orientation: x4 Motor Activity: Abnormal gait Speech: Unremarkable Language: Adequate Fund of Knowledge: Adequate Attention and Concentration: Adequate Memory: Unremarkable Mood: Sad, Anxious Affect: Sad, Anxious Thought Process & Associations: Intact Thought Content: Appropriate Hallucination Type: Auditory, Visual Delusion Type: None Suicidal Ideation: Yes Suicidal Plan: No Suicidal Intention: No Homicidal Ideation: No Homicidal Plan: No Homicidal Intention: No Insight: Fair Judgment: Impulsive Results Labs Test 04/08/17 06:48 White Blood Count 4.6 TH/MM3 Red Blood Count 3.58 MIL/MM3 Hemoglobin 12.0 GM/DL Hematocrit 34.8 % Mean Corpuscular Volume 97.1 FL Mean Corpuscular Hemoglobin 33.6 PG Mean Corpuscular Hemoglobin Concent 34.6 % Red Cell Distribution Width 13.3 % Platelet Count 197 TH/MM3 Mean Platelet Volume 8.9 FL Neutrophils (%) (Auto) 53.6 % Lymphocytes (%) (Auto) 26.4 % Monocytes (%) (Auto) 16.2 % Eosinophils (%) (Auto) 2.8 % Basophils (%) (Auto) 1.0 % Neutrophils # (Auto) 2.5 TH/MM3 Lymphocytes # (Auto) 1.2 TH/MM3 Monocytes # (Auto) 0.7 TH/MM3 Eosinophils # (Auto) 0.1 TH/MM3 Basophils # (Auto) 0.0 TH/MM3 CBC Comment DIFF FINAL Differential Comment Blood Urea Nitrogen 25 MG/DL Creatinine 0.65 MG/DL Random Glucose 90 MG/DL Calcium Level 8.8 MG/DL Phosphorus Level 3.9 MG/DL Magnesium Level 2.0 MG/DL Sodium Level 142 MEQ/L Potassium Level 3.9 MEQ/L Chloride Level 109 MEQ/L Carbon Dioxide Level 27.3 MEQ/L Anion Gap 6 MEQ/L Estimat Glomerular Filtration Rate 124 ML/MIN Vitals/IOs Vital Signs Date Time Temp Pulse Resp B/P (MAP) Pulse Ox O2 Delivery O2 Flow Rate FiO2 04/08/17 05:47 97.8 86 17 126/61 (82) 99 Intake and Output 04/08/17 04/08/17 04/09/17 08:00 16:00 00:00 Intake Total 240 ml 720 ml Balance 240 ml 720 ml Assessment & Plan Problem List: (1) Adjustment disorder with depressed mood ICD Codes: F43.21 - Adjustment disorder with depressed mood (2) Alcohol abuse with intoxication ICD Codes: F10.129 - Alcohol abuse with intoxication, unspecified Assessment & Plan Estimated LOS: days patient continues somewhat labile and depressed related to his placement issues and feelings of hopelessness and helplessness. Justification for Cont. Inpt. This time patient with decompensated placed in the lower level of care Discharge Planning Continue to work on placement issues Boom England MD Apr 08, 2017 15:06
[2017-04-08 19:30] VITALS: BP 126/61; PULSE 87; RESP 16; TEMP 98
[2017-04-09 06:31] VITALS: BP 118/74; PULSE 103; RESP 20; TEMP 97.8; O2SAT 98
[2017-04-09] MEDS: MAGNESIUM OXIDE 400 MG TAB PO SCH ×2 (08:45→20:43)
[2017-04-09] MEDS: MULTIVITAMIN TAB PO SCH (08:45)
[2017-04-09] MEDS: IBUPROFEN 600 MG TAB PO PRN (08:45)
[2017-04-09] MEDS: chlordiazePOXIDE 25 MG CAP PO SCH (08:46)
[2017-04-09] MEDS: THIAMINE HCL 100 MG TAB PO SCH (08:46)
[2017-04-09] MEDS: FOLIC ACID 1 MG TAB PO SCH (08:46)
[2017-04-09] MEDS: REMOVE OLD PATCH T-DERMAL SCH (08:49)
[2017-04-09] MEDS: NICOTINE 21 MG/24 HR PATCH T-DERMAL SCH (08:49)
[2017-04-09] MEDS: ACETAMINOPHEN 325 MG TAB PO PRN (11:22)
--- NOTE | 2017-04-09 14:35 | HHI.PYPN ---
Subjective Remarks Patient seen in dayroom with counselor Margarita, chart review, patient compliant medications. Patient continues to complain of depression. Neuro no signs of withdrawal. It appears this depression is somewhat long-standing. Patient states he had done well on a combination of Effexor Seroquel and trazodone in the past. Continues to have suicidal thoughts of the present time. There is able contract was due to harm at this time. And she is stable he states he still wishes to go back to his [place]. Pack up and wander to some other destination. At this time I will discontinue the ciwa protocol, discontinue the Librium. We will add Effexor 37.5 mg daily, Seroquel 100 mg at at bedtime, trazodone 50 mg at bedtime and adjust medications as necessary. Consider discharge first part of next week Review of Systems Except as stated in HPI: all other systems reviewed are Neg Mental Status Examination Appearance: Dirty, Disheveled Consciousness: Alert Orientation: x4 Motor Activity: Abnormal gait Speech: Unremarkable Language: Adequate Fund of Knowledge: Adequate Attention and Concentration: Adequate Memory: Unremarkable Mood: Sad, Anxious Affect: Sad, Anxious Thought Process & Associations: Intact Thought Content: Appropriate Hallucination Type: Auditory, Visual Delusion Type: None Suicidal Ideation: Yes Suicidal Plan: No Suicidal Intention: No Homicidal Ideation: No Homicidal Plan: No Homicidal Intention: No Insight: Fair Judgment: Impulsive Results Vitals/IOs Vital Signs Date Time Temp Pulse Resp B/P (MAP) Pulse Ox O2 Delivery O2 Flow Rate FiO2 04/09/17 06:31 97.8 103 20 118/74 (89) 98 Intake and Output 04/09/17 04/09/17 04/10/17 08:00 16:00 00:00 Intake Total 360 ml 480 ml Balance 360 ml 480 ml Assessment & Plan Problem List: (1) Adjustment disorder with depressed mood ICD Codes: F43.21 - Adjustment disorder with depressed mood (2) Alcohol abuse with intoxication ICD Codes: F10.129 - Alcohol abuse with intoxication, unspecified Assessment & Plan Estimated LOS: days patient continues depressed, though there appears to be swelling basis in his past history. We'll add and modify medications as mentioned above Justification for Cont. Inpt. At this time patient will decompensate if placed in the lower level of care Discharge Planning Patient may possibly be a homeless discharge at his discretion. Boom England MD Apr 09, 2017 14:35
[2017-04-09] MEDS: VENLAFAXINE HCL XR 37.5 MG CAP PO SCH (16:31)
[2017-04-09] MEDS: QUEtiapine FUMARATE 100 MG TAB PO SCH (20:42)
[2017-04-09] MEDS: traZODone HCL 50 MG TAB PO SCH (20:42)
[2017-04-09 21:04] VITALS: BP 126/61; PULSE 87; RESP 16; TEMP 98; O2SAT 95
[2017-04-10 06:27] VITALS: BP 135/64; PULSE 73; RESP 18; TEMP 97.7; O2SAT 97
[2017-04-10] MEDS: REMOVE OLD PATCH T-DERMAL SCH (08:31)
[2017-04-10] MEDS: VENLAFAXINE HCL XR 37.5 MG CAP PO SCH (08:31)
[2017-04-10] MEDS: THIAMINE HCL 100 MG TAB PO SCH (08:31)
[2017-04-10] MEDS: NICOTINE 21 MG/24 HR PATCH T-DERMAL SCH (08:31)
[2017-04-10] MEDS: FOLIC ACID 1 MG TAB PO SCH (08:31)
[2017-04-10] MEDS: MAGNESIUM OXIDE 400 MG TAB PO SCH ×2 (08:32→20:56)
[2017-04-10] MEDS: MULTIVITAMIN TAB PO SCH (08:32)
--- NOTE | 2017-04-10 14:31 | HHI.PYPN ---
Subjective Remarks Pt seen and discussed with staff. No behavior problems today.; He has been calm and cooperative with care. No SI/HI CIWA has been zero. He is tolerating medications without side effects. Pt reported to RN that he has been having watery diarrhea for several days. Prior to hospitalization pt was living and eating in the [place] as is homeless. Mental Status Examination Appearance: Dirty, Disheveled Consciousness: Alert Orientation: x4 Motor Activity: Abnormal gait Speech: Unremarkable Language: Adequate Fund of Knowledge: Adequate Attention and Concentration: Adequate Memory: Unremarkable Mood: Sad, Anxious Affect: Sad, Anxious Thought Process & Associations: Intact Thought Content: Appropriate Hallucination Type: Auditory, Visual Delusion Type: None Suicidal Ideation: Yes Suicidal Plan: No Suicidal Intention: No Homicidal Ideation: No Homicidal Plan: No Homicidal Intention: No Insight: Fair Judgment: Impulsive Results Vitals/IOs Vital Signs Date Time Temp Pulse Resp B/P (MAP) Pulse Ox O2 Delivery O2 Flow Rate FiO2 04/10/17 06:27 97.7 73 18 135/64 (87) 97 Intake and Output 04/10/17 04/10/17 04/11/17 08:00 16:00 00:00 Intake Total 360 ml 360 ml Balance 360 ml 360 ml Assessment & Plan Problem List: (1) Adjustment disorder with depressed mood ICD Codes: F43.21 - Adjustment disorder with depressed mood (2) Alcohol abuse with intoxication ICD Codes: F10.129 - Alcohol abuse with intoxication, unspecified Assessment & Plan Continue current tx plan. Will send stool cultures and consult hospitalist. Estimated LOS: days Justification for Cont. Inpt. risk of decompensation Kendra Hoffman MD Apr 10, 2017 14:31
[2017-04-10 18:00] VITALS: BP 119/67; PULSE 79; RESP 17; TEMP 98.2; O2SAT 100
[2017-04-10] MEDS: traZODone HCL 50 MG TAB PO SCH (20:56)
[2017-04-10] MEDS: QUEtiapine FUMARATE 100 MG TAB PO SCH (20:56)
[2017-04-10 22:39] LABS: BICARBONATE 27.7 MEQ/L (21.0-32.0); CALCIUM 9.4 MG/DL (8.5-10.1); CREATININE 0.69 MG/DL (0.60-1.30)
[2017-04-11 06:14] VITALS: BP 119/64; PULSE 86; RESP 18; TEMP 98.2; O2SAT 97
[2017-04-11] MEDS: NICOTINE 21 MG/24 HR PATCH T-DERMAL SCH (07:59)
[2017-04-11] MEDS: REMOVE OLD PATCH T-DERMAL SCH (07:59)
[2017-04-11] MEDS: THIAMINE HCL 100 MG TAB PO SCH (08:00)
[2017-04-11] MEDS: MAGNESIUM OXIDE 400 MG TAB PO SCH ×2 (08:00→20:30)
[2017-04-11] MEDS: FOLIC ACID 1 MG TAB PO SCH (08:00)
[2017-04-11] MEDS: MULTIVITAMIN TAB PO SCH (08:00)
[2017-04-11] MEDS: VENLAFAXINE HCL XR 37.5 MG CAP PO SCH (08:00)
--- NOTE | 2017-04-11 12:16 | HHI.PYPN ---
Subjective Remarks Pt seen and discussed with staff. Stool studies are pending. Pt reports one loose stool this morning but no additional today. No behavior problems on unit. He remains depressed but appears brighter in affect. He reports intermittent SI without plan. Mental Status Examination Appearance: Dirty, Disheveled Consciousness: Alert Orientation: x4 Motor Activity: Abnormal gait Speech: Unremarkable Language: Adequate Fund of Knowledge: Adequate Attention and Concentration: Adequate Memory: Unremarkable Mood: Sad Affect: Sad Thought Process & Associations: Intact Thought Content: Appropriate Hallucination Type: Auditory Delusion Type: None Suicidal Ideation: Yes Suicidal Plan: No Suicidal Intention: No Homicidal Ideation: No Homicidal Plan: No Homicidal Intention: No Insight: Fair Judgment: Impulsive Results Labs Test 04/10/17 21:00 Blood Urea Nitrogen 21 MG/DL Creatinine 0.69 MG/DL Random Glucose 115 MG/DL Calcium Level 9.4 MG/DL Sodium Level 141 MEQ/L Potassium Level 3.9 MEQ/L Chloride Level 105 MEQ/L Carbon Dioxide Level 27.7 MEQ/L Anion Gap 8 MEQ/L Estimat Glomerular Filtration Rate 116 ML/MIN Date/Time Source Procedure Growth Status 04/10/17 18:00 Stool Stool Cryptosporidium Exam Pending Received 04/10/17 18:00 Stool Stool Giardia Antigen (TOMA) Pending Received Vitals/IOs Vital Signs Date Time Temp Pulse Resp B/P (MAP) Pulse Ox O2 Delivery O2 Flow Rate FiO2 04/11/17 06:14 98.2 86 18 119/64 (82) 97 Intake and Output 04/11/17 04/11/17 04/12/17 08:00 16:00 00:00 Intake Total 720 ml Balance 720 ml Assessment & Plan Problem List: (1) Adjustment disorder with depressed mood ICD Codes: F43.21 - Adjustment disorder with depressed mood (2) Alcohol abuse with intoxication ICD Codes: F10.129 - Alcohol abuse with intoxication, unspecified Assessment & Plan Pt improving. Continue current tx plan. Estimated LOS: days Justification for Cont. Inpt. impairments in safety Kendra Hoffman MD Apr 11, 2017 12:16
[2017-04-11 18:00] VITALS: BP 105/53; PULSE 78; RESP 17; TEMP 98.2; O2SAT 97
[2017-04-11] MEDS: traZODone HCL 50 MG TAB PO SCH (20:30)
[2017-04-11] MEDS: QUEtiapine FUMARATE 100 MG TAB PO SCH (20:30)
[2017-04-12] MEDS: FOLIC ACID 1 MG TAB PO SCH (08:56)
[2017-04-12] MEDS: MAGNESIUM OXIDE 400 MG TAB PO SCH ×2 (08:56→21:09)
[2017-04-12] MEDS: REMOVE OLD PATCH T-DERMAL SCH (08:56)
[2017-04-12] MEDS: THIAMINE HCL 100 MG TAB PO SCH (08:56)
[2017-04-12] MEDS: MULTIVITAMIN TAB PO SCH (08:56)
[2017-04-12] MEDS: VENLAFAXINE HCL XR 37.5 MG CAP PO SCH (08:56)
[2017-04-12] MEDS: NICOTINE 21 MG/24 HR PATCH T-DERMAL SCH (08:56)
--- NOTE | 2017-04-12 16:37 | HHI.PYPN ---
Subjective Remarks Patient seen in his room with nurse Yony, patient somewhat more depressed today. States he has found his old foot splint though it is faulty. Is hoping to receive the new splint tomorrow. He he says he has a friend who can stay with as of Friday 04/14. Patient was still remains depressed, though it is improving he does denies suicidality at this time. For now continue treatment Review of Systems Except as stated in HPI: all other systems reviewed are Neg Mental Status Examination Appearance: Dirty, Disheveled Consciousness: Alert Orientation: x4 Motor Activity: Abnormal gait Speech: Unremarkable Language: Adequate Fund of Knowledge: Adequate Attention and Concentration: Adequate Memory: Unremarkable Mood: Sad Affect: Sad Thought Process & Associations: Intact Thought Content: Appropriate Hallucination Type: Auditory Delusion Type: None Suicidal Ideation: Yes Suicidal Plan: No Suicidal Intention: No Homicidal Ideation: No Homicidal Plan: No Homicidal Intention: No Insight: Fair Judgment: Impulsive Results Labs Date/Time Source Procedure Growth Status 04/10/17 18:00 Stool Stool Cryptosporidium Exam - Final NEGATIVE - NO CRYPTOSPORIDIUM ANTIGEN... Complete 04/10/17 18:00 Stool Stool Giardia Antigen (TOMA) - Final NEGATIVE - NO GIARDIA ANTIGEN DETECTE... Complete Vitals/IOs Vital Signs Date Time Temp Pulse Resp B/P (MAP) Pulse Ox O2 Delivery O2 Flow Rate FiO2 04/11/17 18:00 98.2 78 17 105/53 (70) 97 Intake and Output 04/12/17 04/12/17 04/13/17 08:00 16:00 00:00 Intake Total 240 ml 700 ml Balance 240 ml 700 ml Assessment & Plan Problem List: (1) Adjustment disorder with depressed mood ICD Codes: F43.21 - Adjustment disorder with depressed mood (2) Alcohol abuse with intoxication ICD Codes: F10.129 - Alcohol abuse with intoxication, unspecified Assessment & Plan Estimated LOS: days patient continues slow improvement, though there is still appears residual from his significant alcohol use. For now continue treatment Justification for Cont. Inpt. At this time patient decompensated placed on lower level of care Discharge Planning Placement may be problematic. Perhaps back to the [place] his stent but he states he may have a friend taken Stimac as of Friday 04/14 Boom England MD Apr 12, 2017 16:37
[2017-04-12 18:00] VITALS: BP 125/63; PULSE 83; RESP 18; TEMP 98.4; O2SAT 100
[2017-04-12] MEDS: traZODone HCL 50 MG TAB PO SCH (21:09)
[2017-04-12] MEDS: QUEtiapine FUMARATE 100 MG TAB PO SCH (21:09)
[2017-04-13 06:33] VITALS: BP 119/65; PULSE 96; RESP 19; TEMP 97.9; O2SAT 98
[2017-04-13] MEDS: MAGNESIUM OXIDE 400 MG TAB PO SCH ×2 (08:17→20:50)
[2017-04-13] MEDS: THIAMINE HCL 100 MG TAB PO SCH (08:17)
[2017-04-13] MEDS: FOLIC ACID 1 MG TAB PO SCH (08:17)
[2017-04-13] MEDS: MULTIVITAMIN TAB PO SCH (08:17)
[2017-04-13] MEDS: VENLAFAXINE HCL XR 37.5 MG CAP PO SCH (08:17)
[2017-04-13] MEDS: NICOTINE 21 MG/24 HR PATCH T-DERMAL SCH (08:21)
[2017-04-13] MEDS: REMOVE OLD PATCH T-DERMAL SCH (09:00)
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
--- NOTE | 2017-04-13 13:51 | HHI.PYPN ---
Subjective Remarks Patient seen in [place] with nurse Anum, patient states mood is improving, now denies suicidality, Ceptaz improved his stability has improved. History and on his new splint and it works well on his foot. Patient compliant medications. For now consider discharge tomorrow Review of Systems Except as stated in HPI: all other systems reviewed are Neg Mental Status Examination Appearance: Dirty, Disheveled Consciousness: Alert Orientation: x4 Motor Activity: Abnormal gait Speech: Unremarkable Language: Adequate Fund of Knowledge: Adequate Attention and Concentration: Adequate Memory: Unremarkable Mood: Sad Affect: Sad Thought Process & Associations: Intact Thought Content: Appropriate Hallucination Type: Auditory Delusion Type: None Suicidal Ideation: Yes Suicidal Plan: No Suicidal Intention: No Homicidal Ideation: No Homicidal Plan: No Homicidal Intention: No Insight: Fair Judgment: Impulsive Results Labs Date/Time Source Procedure Growth Status 04/10/17 18:00 Stool Stool Cryptosporidium Exam - Final NEGATIVE - NO CRYPTOSPORIDIUM ANTIGEN... Complete 04/10/17 18:00 Stool Stool Giardia Antigen (TOMA) - Final NEGATIVE - NO GIARDIA ANTIGEN DETECTE... Complete Vitals/IOs Vital Signs Date Time Temp Pulse Resp B/P (MAP) Pulse Ox O2 Delivery O2 Flow Rate FiO2 04/13/17 06:33 97.9 96 19 119/65 (83) 98 Intake and Output 04/13/17 04/13/17 04/14/17 08:00 16:00 00:00 Intake Total 120 ml 240 ml Balance 120 ml 240 ml Assessment & Plan Problem List: (1) Adjustment disorder with depressed mood ICD Codes: F43.21 - Adjustment disorder with depressed mood (2) Alcohol abuse with intoxication ICD Codes: F10.129 - Alcohol abuse with intoxication, unspecified Assessment & Plan Estimated LOS: days patient continues to improve depression is lifting, is toileting and appetite are improving, continues to denies suicidality. Consider discharge tomorrow Justification for Cont. Inpt. This time patient decompensated placed a lower level of care Discharge Planning Consider discharge tomorrow to himself Boom England MD Apr 13, 2017 13:51
[2017-04-13 18:33] VITALS: BP 117/75; PULSE 84; RESP 18; TEMP 97.6; O2SAT 97
[2017-04-13] MEDS: QUEtiapine FUMARATE 100 MG TAB PO SCH (20:50)
[2017-04-13] MEDS: traZODone HCL 50 MG TAB PO SCH (20:50)
[2017-04-14] MEDS ORDERED: THERTAB15 PO (08:59)
[2017-04-14] MEDS ORDERED: QUET1TAB8 PO (08:59)
[2017-04-14] MEDS ORDERED: MAGN400T2 PO (08:59)
[2017-04-14] MEDS ORDERED: THIA100 PO (08:59)
[2017-04-14] MEDS ORDERED: TRAZ50TA12 PO (08:59)
[2017-04-14] MEDS ORDERED: VENL1CAP38 PO (08:59)
[2017-04-14] MEDS ORDERED: FOLI1TAB6 PO (08:59)
[2017-04-14] MEDS: NICOTINE 21 MG/24 HR PATCH T-DERMAL SCH (09:00)
[2017-04-14] MEDS: REMOVE OLD PATCH T-DERMAL SCH (09:00)
[2017-04-14] MEDS: FOLIC ACID 1 MG TAB PO SCH (09:01)
[2017-04-14] MEDS: VENLAFAXINE HCL XR 37.5 MG CAP PO SCH (09:01)
[2017-04-14] MEDS: MULTIVITAMIN TAB PO SCH (09:01)
[2017-04-14] MEDS: MAGNESIUM OXIDE 400 MG TAB PO SCH (09:01)
[2017-04-14] MEDS: THIAMINE HCL 100 MG TAB PO SCH (09:01)
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
== END 2017-04-14 11:20 | disposition home or self-care (01) | DRG 881 ==
LOC: NEPD 12:16 → NEDA 04-02 13:31 → H250 04-02 20:10
PROVIDERS: ADMIT Psychiatry & Neurology Psychiatry; ATTEND Psychiatry & Neurology Psychiatry
DX: F43.21 Adjustment disorder with depressed mood (principal); S09.90XA Unspecified injury of head, initial encounter; R45.851 Suicidal ideations; E83.42 Hypomagnesemia; S00.11XA Contusion of right eyelid and periocular area, initial encounter; D72.819 Decreased white blood cell count, unspecified; F10.230 Alcohol dependence with withdrawal, uncomplicated; E87.6 Hypokalemia; M21.371 Foot drop, right foot; M19.90 Unspecified osteoarthritis, unspecified site; H26.9 Unspecified cataract; F17.210 Nicotine dependence, cigarettes, uncomplicated; M54.2 Cervicalgia; M54.5 Low back pain; S00.12XA Contusion of left eyelid and periocular area, initial encounter; Y04.0XXA Assault by unarmed brawl or fight, initial encounter; R19.7 Diarrhea, unspecified; R25.1 Tremor, unspecified; F10.220 Alcohol dependence with intoxication, uncomplicated; Y90.8 Blood alcohol level of 240 mg/100 ml or more; R73.9 Hyperglycemia, unspecified; F31.9 Bipolar disorder, unspecified; F41.9 Anxiety disorder, unspecified; K46.9 Unspecified abdominal hernia without obstruction or gangrene; Z81.1 Family history of alcohol abuse and dependence; Z81.8 Family history of other mental and behavioral disorders; Z59.0 Homelessness; Z86.73 Personal history of transient ischemic attack (TIA), and cerebral infarction without residual deficits
CPT/HCPCS: 70450; 70486; 71046; 72100; 72125; 80048; 80053; 80061; 80307; 81001; 82306; 82607; 83036; 83735; 84100; 84443; 85025; 85610; 85730; 87328; 87329; 87493; 87506; 93005; 99285; J2060; L1960

== ENCOUNTER 2017-04-19 13:35 | Emergency (ER) | payer SELFPAY ==
[~2017-04-19] VITALS: Ht 177.8 cm; Wt 90.0 kg
[~2017-04-19 13:35] MED LIST changes: -Aspirin Chew CHEW; +FOLI1TAB6 PO; -LIPI40TA PO; +MAGN400T2 PO; +QUET1TAB8 PO; +THERTAB15 PO; +THIA100 PO; -TRAZ100T4 PO; +TRAZ50TA12 PO; +VENL1CAP38 PO
[2017-04-19 14:07] VITALS: BP 134/73; PULSE 89; RESP 16; TEMP 98.5; O2SAT 100
--- NOTE | 2017-04-19 14:21 | PD ---
HPI Chief Complaint: Suicide Ideation/Attempt Time Seen by Provider: 14:04 Travel History International Travel<30 days: No Contact w/Intl Traveler<30days: No Traveled to known affect area: No History of Present Illness HPI This patient attempted suicide by hanging unfortunately according to him the tree limb broke right away and he fell down onto the ground. Upon arrival EMS found the patient ambulatory under his own power. However EMS placed him on a c -collar for precautions on the way to the emergency department. According to the patient is a second attempt at suicide by hanging, the first time was several months ago and and the rope apparently was too thin and could not support his weight and therefore snapped. Patient states that he is very depressed about his current homelessness and status and feels that none of these family members care about him. When asked patient did not really volunteer whether he was taking his medications as prescribed and decided to be silent. Patient rates the severity of his depression at a 10 out of 10 currently. Also continues to have suicidal ideation currently at the time of evaluation since patient was brought by EMS there was no outside source to Gannon act patient. PFSH Past Medical History Arthritis: Yes Bipolar Disorder: Yes Anxiety: Yes Depression: Yes Cardiovascular Problems: Yes Cerebrovascular Accident: Yes Diabetes: No Diminished Hearing: No Herniated Disk: Yes Musculoskeletal: Yes Psychiatric: Yes Social History Alcohol Use: Yes (DAILY) Tobacco Use: Yes (2 PPD) Substance Use: Yes Allergies-Medications (Allergen,Severity, Reaction): Coded Allergies: No Known Allergies (Unverified Allergy, Unknown, 04/02/17) Reported Meds & Prescriptions Reported Meds & Active Scripts Active Effexor XR 24 HR (Venlafaxine HCl) 37.5 Mg Cap 37.5 Mg PO DAILY Trazodone (Trazodone HCl) 50 Mg Tab 50 Mg PO HS Gnp Vitamin B-1 (Thiamine HCl) 100 Mg Tab 100 Mg PO DAILY Quetiapine (Quetiapine Fumarate) 100 Mg Tab 100 Mg PO HS Thera Tablet (Multivitamin with Folic Acid) 400 Mcg Tablet 1 Tab PO DAILY Magnesium Oxide 400 Mg Tab 400 Mg PO Q12HR Folic Acid 1 Mg Tablet 1 Mg PO DAILY Review of Systems General / Constitutional: No: Fever Eyes: No: Visual changes HENT: No: Headaches Cardiovascular: No: Chest Pain or Discomfort Respiratory: No: Shortness of Breath Gastrointestinal: No: Abdominal Pain Genitourinary: No: Dysuria Musculoskeletal: No: Pain Skin: No Rash Neurologic: No: Weakness Psychiatric: Positive: Depression, Suicidal Ideations (Attempted hanging) Endocrine: No: Polydipsia Hematologic/Lymphatic: No: Easy Bruising Physical Exam Narrative GENERAL: SKIN: Warm and dry. patient had HEAD: Atraumatic. Normocephalic. EYES: Pupils equal and round. No scleral icterus. No injection or drainage. ENT: No nasal bleeding or discharge. Mucous membranes pink and moist. NECK: Trachea midline. No JVD. CARDIOVASCULAR: Regular rate and rhythm. RESPIRATORY: No accessory muscle use. Clear to auscultation. Breath sounds equal bilaterally. GASTROINTESTINAL: Abdomen soft, non-tender, nondistended. Hepatic and splenic margins not palpable. MUSCULOSKELETAL: Extremities without clubbing, cyanosis, or edema. No obvious deformities. NEUROLOGICAL: Awake and alert. No obvious cranial nerve deficits. Motor grossly within normal limits. Five out of 5 muscle strength in the arms and legs on left however rle is weak and is 2/5 Normal speech. PSYCHIATRIC: Depressed mood and sad affect; insight and judgment abnormal. Data Data Last Documented VS Vital Signs Date Time Temp Pulse Resp B/P (MAP) Pulse Ox O2 Delivery O2 Flow Rate FiO2 04/20/17 14:27 04/20/17 11:39 86 18 97 Room Air 04/20/17 03:11 98.1 Orders Orders Complete Blood Count With Diff (04/19/17 14:17) Basic Metabolic Panel (Bmp) (04/19/17 14:17) Psych Screen (04/19/17 14:17) Drug Screen, Random Urine (04/19/17 14:17) Alcohol (Ethanol) (04/19/17 14:17) Salicylates (Aspirin) (04/19/17 14:17) Tylenol (Acetaminophen) (04/19/17 14:17) Ct Brain W/O Iv Contrast(Rout) (04/19/17 14:17) Ct Cerv Spine W/O Contrast (04/19/17 14:17) Chest, Single Ap (04/19/17 14:19) Pelvis, Ap Only (Routine) (04/19/17 14:19) Spine, Lumbar - Ltd (Ap & Lat) (04/19/17 14:19) Spine, Thoracic-Ap/Lat/Sw(3vw) (04/19/17 14:19) Diet Regular Basic (04/19/17 Dinner) Chlordiazepoxide (Librium) (04/19/17 19:31) Thiamine Inj (Thiamine Inj) (04/19/17 19:45) Lorazepam Inj (Ativan Inj) (04/19/17 19:45) Alcohol Withdrawal Asmt-Ciwa ONCE (04/20/17 05:23) Ondansetron Odt (Zofran Odt) (04/20/17 05:30) Acetaminophen (Tylenol) (04/20/17 05:30) Flumazenil Inj (Romazicon Inj) (04/20/17 05:30) Lorazepam (Ativan) (04/20/17 05:30) Lorazepam Inj (Ativan Inj) (04/20/17 05:30) Lorazepam (Ativan) (04/20/17 05:30) Lorazepam Inj (Ativan Inj) (04/20/17 05:30) Lorazepam Inj (Ativan Inj) (04/20/17 05:30) Lorazepam Inj (Ativan Inj) (04/20/17 05:30) Diet Regular Basic (04/20/17 Breakfast) Diet Regular Basic (04/20/17 Lunch) Ed Discharge Order (04/20/17 14:18) Labs Laboratory Tests Test 04/19/17 14:20 04/19/17 15:30 White Blood Count 5.0 TH/MM3 Red Blood Count 3.96 MIL/MM3 Hemoglobin 13.4 GM/DL Hematocrit 38.1 % Mean Corpuscular Volume 96.4 FL Mean Corpuscular Hemoglobin 33.9 PG Mean Corpuscular Hemoglobin Concent 35.1 % Red Cell Distribution Width 13.7 % Platelet Count 312 TH/MM3 Mean Platelet Volume 7.4 FL Neutrophils (%) (Auto) 60.5 % Lymphocytes (%) (Auto) 30.0 % Monocytes (%) (Auto) 7.1 % Eosinophils (%) (Auto) 0.3 % Basophils (%) (Auto) 2.1 % Neutrophils # (Auto) 3.0 TH/MM3 Lymphocytes # (Auto) 1.5 TH/MM3 Monocytes # (Auto) 0.4 TH/MM3 Eosinophils # (Auto) 0.0 TH/MM3 Basophils # (Auto) 0.1 TH/MM3 CBC Comment DIFF FINAL Differential Comment Blood Urea Nitrogen 5 MG/DL Creatinine 0.68 MG/DL Random Glucose 67 MG/DL Calcium Level 8.9 MG/DL Sodium Level 137 MEQ/L Potassium Level 3.9 MEQ/L Chloride Level 102 MEQ/L Carbon Dioxide Level 24.5 MEQ/L Anion Gap 11 MEQ/L Estimat Glomerular Filtration Rate 118 ML/MIN Salicylates Level 3.4 MG/DL Acetaminophen Level LESS THAN 2.0 MCG/ML Ethyl Alcohol Level 204 MG/DL Urine Opiates Screen NEG Urine Barbiturates Screen NEG Urine Amphetamines Screen NEG Urine Benzodiazepines Screen POS Urine Cocaine Screen NEG Urine Cannabinoids Screen NEG MDM Medical Decision Making Medical Screen Exam Complete: Yes Emergency Medical Condition: Yes Medical Record Reviewed: Yes Differential Diagnosis cervical neck fx v ich v pelvis fx v ptx Narrative Course Patient's electrolyte were within normal limits, alcohol level 204, CBC without any leukocytosis or anemia noted. Pelvis x-ray negative for any fracture. Chest x-ray negative for any fracture or pneumothorax. T-spine and L-spine were essentially negative for any major fractures or dislocations. Currently awaiting CT head and CT cervical spine results. At 1630 CT head is negative for any intracranial hemorrhage. CT cervical spine is only positive for some C3 on C4 degenerative changes but otherwise no acute fracture or dislocation noted by radiologist. Diagnosis Primary Impression: gannon act due to attempted hanging Additional Impressions: Alcohol intoxication MEDICALLY CLEARED Admitting Information Admitting Physician Requests: Ez Bodlen MD Apr 19, 2017 14:21
[2017-04-19 14:33] LABS: BASOPHIL # 0.1 TH/MM3 (0-0.2); BASOPHIL % 2.1 % (0.0-2.0); EOSINOPHIL % 0.3 % (0.0-4.0); HEMATOCRIT 38.1 % (39.0-51.0); HEMOGLOBIN 13.4 GM/DL (13.0-17.0); LYMPHOCYTE # 1.5 TH/MM3 (1.0-4.8); MEAN CELL VOLUME 96.4 FL (80.0-100.0); MEAN CORPUSCULAR HEMOGLOBIN 33.9 PG (27.0-34.0); MEAN CORPUSCULAR HGB CONC 35.1 % (32.0-36.0); MEAN PLATELET VOLUME 7.4 FL (7.0-11.0); MONO % 7.1 % (0.0-8.0); MONOCYTE # 0.4 TH/MM3 (0-0.9); NEUT % 60.5 % (16.0-70.0); PLATELET COUNT 312 TH/MM3 (150-450); RED BLOOD COUNT 3.96 MIL/MM3 (4.50-5.90); RED CELL DISTRIBUTION WIDTH 13.7 % (11.6-17.2)
[2017-04-19 14:52] LABS: BICARBONATE 24.5 MEQ/L (21.0-32.0); BLOOD UREA NITROGEN 5 MG/DL (7-18); CALCIUM 8.9 MG/DL (8.5-10.1); CHLORIDE 102 MEQ/L (98-107); CREATININE 0.68 MG/DL (0.60-1.30); GLOMERULAR FILTRATION RATE 118 ML/MIN (>89); GLUCOSE,RANDOM 67 MG/DL (74-106); SODIUM (NA) 137 MEQ/L (136-145)
--- NOTE | 2017-04-19 15:00 | RADRPT ---
EXAM DATE/TIME: 04/19/2017 14:32 [facility] COMPARISON: PELVIS AP ONLY, November 04, 2016, 15:56. INDICATIONS : Pelvic pain; fall out of tree this morning. MEDICAL HISTORY : None. SURGICAL HISTORY : None. ENCOUNTER: Initial ACUITY: 1 day PAIN SCORE: 10/10 LOCATION: Bilateral pelvis FINDINGS: A single frontal view of the pelvis demonstrates no evidence of fracture. The bony pelvic ring is in tact. Bony mineralization is normal. The soft tissues are intact. CONCLUSION: Negative acute process. Manpreet Davila MD FACR on April 19, 2017 at 14:54 Board Certified Radiologist. This report was verified electronically.
[2017-04-19 15:03] LABS: ACETAMINOPHEN LESS THAN 2.0 MCG/ML (10.0-30.0)
--- NOTE | 2017-04-19 15:13 | RADRPT ---
EXAM DATE/TIME: 04/19/2017 14:34 [facility] COMPARISON: SPINE LUMBAR LTD (AP & LAT), April 01, 2017, 15:35. INDICATIONS : Lower back pain; fall out of tree this morning. MEDICAL HISTORY : SURGICAL HISTORY : None. ENCOUNTER: Initial ACUITY: 1 day PAIN SCORE: 10/10 LOCATION: Bilateral lumbar spine. FINDINGS: Mild degenerative changes are present with also disc space height at at all levels. Minimal and does n't sites are noted. Mild facet degenerative disease are noted. SI joints are normal. CONCLUSION: Degenerative changes without acute compression. Manpreet Davila MD FACR on April 19, 2017 at 15:10 Board Certified Radiologist. This report was verified electronically.
--- NOTE | 2017-04-19 15:14 | RADRPT ---
EXAM DATE/TIME: 04/19/2017 14:36 [facility] COMPARISON: No previous studies available for comparison. INDICATIONS : Back pain; fall out of tree this morning. MEDICAL HISTORY : None. SURGICAL HISTORY : None. ENCOUNTER: Initial ACUITY: 1 day PAIN SCORE: 10/10 LOCATION: Bilateral thoracic spine. FINDINGS: Mild degenerative changes mid thoracic spine without acute compression. CONCLUSION: Moderate degenerative changes without acute compression. MRI would be more sensitive for such. Manpreet Davila MD FACR on April 19, 2017 at 15:11 Board Certified Radiologist. This report was verified electronically.
--- NOTE | 2017-04-19 15:37 | RADRPT ---
EXAM DATE/TIME: 04/19/2017 14:48 [facility] COMPARISON: CHEST SINGLE AP, June 21, 2016, 13:56. INDICATIONS : Chest discomfort; fall out of tree today. MEDICAL HISTORY : Cardiovascular disease. CVA SURGICAL HISTORY : None. ENCOUNTER: Initial ACUITY: 1 day PAIN SCORE: 3/10 LOCATION: Bilateral chest FINDINGS: A single view of the chest demonstrates the lungs to be symmetrically aerated without evidence of mas s, infiltrate or effusion. The cardiomediastinal contours are unremarkable. Osseous structures are intact. CONCLUSION: No acute disease. Manpreet Davila MD FACR on April 19, 2017 at 15:34 Board Certified Radiologist. This report was verified electronically.
--- NOTE | 2017-04-19 15:51 | RADRPT ---
EXAM DATE/TIME: 04/19/2017 15:29 [facility] COMPARISON: CT BRAIN W/O CONTRAST, April 01, 2017, 14:09. INDICATIONS : Trauma, attempting hanging today. RADIATION DOSE: 48.45 CTDIvol (mGy) MEDICAL HISTORY : Stroke. Seizures. SURGICAL HISTORY : None. ENCOUNTER: Initial ACUITY: 1 day PAIN SCALE: 4/10 LOCATION: Bilateral head TECHNIQUE: Multiple contiguous axial images were obtained of the head. Using automated exposure control and adj ustment of the mA and/or kV according to patient size, radiation dose was kept as low as reasonably a chievable to obtain optimal diagnostic quality images. DICOM format image data is available electro nically for review and comparison. FINDINGS: CEREBRUM: The ventricles are normal for age. No evidence of midline shift, mass lesion, hemorrhage or acute in farction. No extra-axial fluid collections are seen. POSTERIOR FOSSA: The cerebellum and brainstem are intact. The 4th ventricle is midline. The cerebellopontine angle i s unremarkable. EXTRACRANIAL: The visualized portion of the orbits is intact. SKULL: The calvaria is intact. No evidence of skull fracture. CONCLUSION: Negative Manpreet Davila MD FACR on April 19, 2017 at 15:47 Board Certified Radiologist. This report was verified electronically.
--- NOTE | 2017-04-19 16:03 | RADRPT ---
EXAM DATE/TIME: 04/19/2017 15:29 [facility] COMPARISON: CT CERVICAL SPINE W/O CONTRAST, April 01, 2017, 14:09. INDICATIONS : Attempted hanging, rope broke. RADIATION DOSE: ?42.90 CTDIvol (mGy) MEDICAL HISTORY : Cardiovascular disease. Seizures. Cerebrovascular disease. SURGICAL HISTORY : None. ENCOUNTER: Initial ACUITY: 1 day PAIN SCALE: 5/10 LOCATION: neck TECHNIQUE: Volumetric scanning of the cervical spine was performed. Multiplanar reconstructions in the sagittal, coronal and oblique axial planes were performed. Using automated exposure control and adjustment o f the mA and/or kV according to patient size, radiation dose was kept as low as reasonably achievable to obtain optimal diagnostic quality images. DICOM format image data is available electronically f or review and comparison. FINDINGS: VERTEBRAE: Normal vertebral body height. ALIGNMENT: No evidence of subluxation. C2-C3: The bony spinal canal is normal in size. No evidence of disc bulge or herniation. The neural forami na are bilaterally patent. C3-C4: Minimal neuroforaminal encroachment left greater than right without spinal stenosis. C4-C5: Mild bilateral neural foramina encroachment. C5-C6: Mild uncinate ridging present with minimal bilateral from encroachment C6-C7: Mild right-sided neural foramina encroachment. There is no spinal stenosis. C7-T1: The bony spinal canal is normal in size. No evidence of disc bulge or herniation. The neural forami na are bilaterally patent. CONCLUSION: Degenerative changes worse at C3-C4 on the left. There is no fracture. Manpreet Davila MD FACR on April 19, 2017 at 15:59 Board Certified Radiologist. This report was verified electronically.
[2017-04-19 19:22] VITALS: BP 145/75; PULSE 117; RESP 20; O2SAT 94
[2017-04-19] MEDS ORDERED: chlordiazePOXIDE 25 MG CAP PO STA (19:31)
[2017-04-19] MEDS ORDERED: THIAMINE HCL 200 MG/2 ML VIAL IM ONE (19:45)
[2017-04-19] MEDS ORDERED: LORazepam 2 MG/ML VIAL IM ONE (19:45)
[2017-04-19] MEDS ORDERED: LORazepam 2 MG TAB PO ONE (19:45)
[2017-04-19 23:43] VITALS: BP 120/72; PULSE 80; RESP 18; TEMP 98.2; O2SAT 95
[2017-04-20 03:11] VITALS: BP 125/68; PULSE 82; RESP 18; TEMP 98.1; O2SAT 95
[2017-04-20] MEDS ORDERED: ACETAMINOPHEN 325 MG TAB PO PRN (05:30)
[2017-04-20] MEDS ORDERED: ONDANSETRON ODT 4 MG TAB PO PRN (05:30)
[2017-04-20] MEDS ORDERED: LORazepam 1 MG TAB PO PRN (05:30)
[2017-04-20] MEDS ORDERED: LORazepam 2 MG/ML VIAL IV PUSH PRN ×4 (05:30)
[2017-04-20] MEDS ORDERED: LORazepam 2 MG TAB PO PRN (05:30)
[2017-04-20] MEDS ORDERED: FLUMAZENIL 0.5 MG/5 ML VIAL IV PUSH PRN (05:30)
[2017-04-20 06:31] VITALS: BP 118/67; PULSE 84; RESP 17; O2SAT 96
[2017-04-20 11:39] VITALS: BP 116/69; PULSE 86; RESP 18; O2SAT 97
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
--- NOTE | 2017-04-20 14:18 | PD ---
Physical Exam Time Seen by Provider: 14:12 KARRIE Regalado has evaluated the patient, lifted Gannon act and cleared the patient for discharge. Data Data Last Documented VS Vital Signs Date Time Temp Pulse Resp B/P (MAP) Pulse Ox O2 Delivery O2 Flow Rate FiO2 04/20/17 11:39 86 18 116/69 (85) 97 Room Air 04/20/17 03:11 98.1 Orders Orders Complete Blood Count With Diff (04/19/17 14:17) Basic Metabolic Panel (Bmp) (04/19/17 14:17) Psych Screen (04/19/17 14:17) Drug Screen, Random Urine (04/19/17 14:17) Alcohol (Ethanol) (04/19/17 14:17) Salicylates (Aspirin) (04/19/17 14:17) Tylenol (Acetaminophen) (04/19/17 14:17) Ct Brain W/O Iv Contrast(Rout) (04/19/17 14:17) Ct Cerv Spine W/O Contrast (04/19/17 14:17) Chest, Single Ap (04/19/17 14:19) Pelvis, Ap Only (Routine) (04/19/17 14:19) Spine, Lumbar - Ltd (Ap & Lat) (04/19/17 14:19) Spine, Thoracic-Ap/Lat/Sw(3vw) (04/19/17 14:19) Diet Regular Basic (04/19/17 Dinner) Chlordiazepoxide (Librium) (04/19/17 19:31) Thiamine Inj (Thiamine Inj) (04/19/17 19:45) Lorazepam Inj (Ativan Inj) (04/19/17 19:45) Alcohol Withdrawal Asmt-Ciwa ONCE (04/20/17 05:23) Ondansetron Odt (Zofran Odt) (04/20/17 05:30) Acetaminophen (Tylenol) (04/20/17 05:30) Flumazenil Inj (Romazicon Inj) (04/20/17 05:30) Lorazepam (Ativan) (04/20/17 05:30) Lorazepam Inj (Ativan Inj) (04/20/17 05:30) Lorazepam (Ativan) (04/20/17 05:30) Lorazepam Inj (Ativan Inj) (04/20/17 05:30) Lorazepam Inj (Ativan Inj) (04/20/17 05:30) Lorazepam Inj (Ativan Inj) (04/20/17 05:30) Diet Regular Basic (04/20/17 Breakfast) Diet Regular Basic (04/20/17 Lunch) Labs Laboratory Tests Test 04/19/17 14:20 04/19/17 15:30 White Blood Count 5.0 TH/MM3 Red Blood Count 3.96 MIL/MM3 Hemoglobin 13.4 GM/DL Hematocrit 38.1 % Mean Corpuscular Volume 96.4 FL Mean Corpuscular Hemoglobin 33.9 PG Mean Corpuscular Hemoglobin Concent 35.1 % Red Cell Distribution Width 13.7 % Platelet Count 312 TH/MM3 Mean Platelet Volume 7.4 FL Neutrophils (%) (Auto) 60.5 % Lymphocytes (%) (Auto) 30.0 % Monocytes (%) (Auto) 7.1 % Eosinophils (%) (Auto) 0.3 % Basophils (%) (Auto) 2.1 % Neutrophils # (Auto) 3.0 TH/MM3 Lymphocytes # (Auto) 1.5 TH/MM3 Monocytes # (Auto) 0.4 TH/MM3 Eosinophils # (Auto) 0.0 TH/MM3 Basophils # (Auto) 0.1 TH/MM3 CBC Comment DIFF FINAL Differential Comment Blood Urea Nitrogen 5 MG/DL Creatinine 0.68 MG/DL Random Glucose 67 MG/DL Calcium Level 8.9 MG/DL Sodium Level 137 MEQ/L Potassium Level 3.9 MEQ/L Chloride Level 102 MEQ/L Carbon Dioxide Level 24.5 MEQ/L Anion Gap 11 MEQ/L Estimat Glomerular Filtration Rate 118 ML/MIN Salicylates Level 3.4 MG/DL Acetaminophen Level LESS THAN 2.0 MCG/ML Ethyl Alcohol Level 204 MG/DL Urine Opiates Screen NEG Urine Barbiturates Screen NEG Urine Amphetamines Screen NEG Urine Benzodiazepines Screen POS Urine Cocaine Screen NEG Urine Cannabinoids Screen NEG MDM Supervised Visit with [facility]: No Narrative Course KARRIE Caceres has evaluated the patient, lifted Gannon act and cleared the patient for discharge. Patient contracts safety. Denies suicidal or homicidal ideations. Patient will be provided community resource packet to [facility] for follow-up. Has friends and family for support. Patient was medically cleared by alternate provider prior to psych screening. Patient has been evaluated by psychiatry and and is now cleared for discharge. Diagnosis Primary Impression: gannon act due to attempted hanging Additional Impressions: Alcohol intoxication MEDICALLY CLEARED Referrals: SARITA (Out patient) [facility] Primary Care Physician Psychiatrist [facility] Patient Instructions: General Instructions, Suicide Prevention for Adults (ED) Additional Instruction: Contract safety to your self and others Follow-up with psychiatry Follow-up with primary care provider Follow-up with Frank Akhtar Return to the emergency department immediately with worsening of symptoms Med/Other Pt SpecificInfo: No Change to Meds, No Meds Exist/No RX given Disposition: 01 DISCHARGE HOME Condition: Stable Rashida Sepulveda Apr 20, 2017 14:18
== END 2017-04-20 14:32 | disposition home or self-care (01) ==
LOC: NEPC 13:35 → NEPJ 04-20 14:32
DX: F10.24 Alcohol dependence with alcohol-induced mood disorder (principal); F31.9 Bipolar disorder, unspecified; Y90.7 Blood alcohol level of 200-239 mg/100 ml; Z59.0 Homelessness; Z79.899 Other long term (current) drug therapy
CPT/HCPCS: 70450; 71045; 72072; 72100; 72125; 72170; 80048; 80307; 85025; 96372; 99285; J2060; J3411

== ENCOUNTER 2017-04-21 16:33 | Emergency (ER) | payer OTHER ==
[~2017-04-21] VITALS: Ht 177.8 cm; Wt 89.0 kg
[2017-04-21 17:14] VITALS: BP 121/67; PULSE 94; RESP 19; TEMP 97.6; O2SAT 94
[2017-04-21 17:20] VITALS: BP 121/67; PULSE 92; RESP 19; TEMP 97.6; O2SAT 94
--- NOTE | 2017-04-21 17:25 | PD ---
HPI Chief Complaint: Psychiatric Symptoms Time Seen by Provider: 17:19 Travel History International Travel<30 days: No Contact w/Intl Traveler<30days: No Traveled to known affect area: No History of Present Illness HPI 61-year-old male brought in by PD under BURLESQUICEOUS act. According to the Gannon act the patient admitted to hang himself in the black on around April 19, but the branch broke. He had rope arana on the back of his neck and admitted to a witness that he would try to do this again. Patient admits to drinking alcohol daily and drinking alcohol throughout the day today. He denies illicit drug use. No physical complaints. PFSH Past Medical History Arthritis: Yes Bipolar Disorder: Yes Anxiety: Yes Depression: Yes Cardiovascular Problems: Yes Cerebrovascular Accident: Yes Diabetes: No Diminished Hearing: No Herniated Disk: Yes Musculoskeletal: Yes Psychiatric: Yes Seizures: Yes Influenza Vaccination: No Social History Alcohol Use: Yes (DAILY) Tobacco Use: Yes (2 PPD) Substance Use: No Allergies-Medications (Allergen,Severity, Reaction): Coded Allergies: No Known Allergies (Unverified Allergy, Unknown, 04/21/17) Reported Meds & Prescriptions Reported Meds & Active Scripts Active Effexor XR 24 HR (Venlafaxine HCl) 37.5 Mg Cap 37.5 Mg PO DAILY Trazodone (Trazodone HCl) 50 Mg Tab 50 Mg PO HS Gnp Vitamin B-1 (Thiamine HCl) 100 Mg Tab 100 Mg PO DAILY Quetiapine (Quetiapine Fumarate) 100 Mg Tab 100 Mg PO HS Thera Tablet (Multivitamin with Folic Acid) 400 Mcg Tablet 1 Tab PO DAILY Magnesium Oxide 400 Mg Tab 400 Mg PO Q12HR Folic Acid 1 Mg Tablet 1 Mg PO DAILY Review of Systems Except as stated in HPI: all other systems reviewed are Neg Physical Exam Narrative GENERAL: Well-developed, well-nourished, awake, alert, no apparent distress. SKIN: Focused skin assessment warm/dry. Healing superficial abrasions to posterior neck. HEAD: Atraumatic. Normocephalic. EYES: Pupils equal and round. No scleral icterus. No injection or drainage. ENT: No nasal bleeding or discharge. Mucous membranes pink and moist. NECK: Trachea midline. No JVD. No midline cervical spine step-off or tenderness. CARDIOVASCULAR: Regular rate and rhythm. RESPIRATORY: No accessory muscle use. Clear to auscultation. Breath sounds equal bilaterally. GASTROINTESTINAL: Abdomen soft, non-tender, nondistended. MUSCULOSKELETAL: No obvious deformities. No clubbing. No cyanosis. No edema. NEUROLOGICAL: Awake and alert. No obvious cranial nerve deficits. Motor grossly within normal limits. Normal speech. PSYCHIATRIC: Flat affect. Poor eye contact. Data Data Last Documented VS Vital Signs Date Time Temp Pulse Resp B/P (MAP) Pulse Ox O2 Delivery O2 Flow Rate FiO2 04/21/17 18:14 98.6 93 18 112/67 (82) 97 Room Air Orders Orders Complete Blood Count With Diff (04/21/17 17:21) Comprehensive Metabolic Panel (04/21/17 17:21) Thyroid Stimulating Hormone (04/21/17 17:21) Psych Screen (04/21/17 17:21) Drug Screen, Random Urine (04/21/17 17:21) Alcohol (Ethanol) (04/21/17 17:21) Salicylates (Aspirin) (04/21/17 17:21) Tylenol (Acetaminophen) (04/21/17 17:21) Diet Regular Basic (04/21/17 Dinner) Labs Laboratory Tests Test 04/21/17 17:40 White Blood Count 4.4 TH/MM3 Red Blood Count 3.64 MIL/MM3 Hemoglobin 12.4 GM/DL Hematocrit 35.3 % Mean Corpuscular Volume 96.9 FL Mean Corpuscular Hemoglobin 34.0 PG Mean Corpuscular Hemoglobin Concent 35.1 % Red Cell Distribution Width 14.1 % Platelet Count 273 TH/MM3 Mean Platelet Volume 7.6 FL Neutrophils (%) (Auto) 49.9 % Lymphocytes (%) (Auto) 39.9 % Monocytes (%) (Auto) 8.0 % Eosinophils (%) (Auto) 0.8 % Basophils (%) (Auto) 1.4 % Neutrophils # (Auto) 2.2 TH/MM3 Lymphocytes # (Auto) 1.8 TH/MM3 Monocytes # (Auto) 0.4 TH/MM3 Eosinophils # (Auto) 0.0 TH/MM3 Basophils # (Auto) 0.1 TH/MM3 CBC Comment DIFF FINAL Differential Comment Blood Urea Nitrogen 4 MG/DL Creatinine 0.64 MG/DL Random Glucose 72 MG/DL Total Protein 7.1 GM/DL Albumin 3.5 GM/DL Calcium Level 8.4 MG/DL Alkaline Phosphatase 73 U/L Aspartate Amino Transf (AST/SGOT) 23 U/L Alanine Aminotransferase (ALT/SGPT) 24 U/L Total Bilirubin 0.2 MG/DL Sodium Level 138 MEQ/L Potassium Level 3.6 MEQ/L Chloride Level 106 MEQ/L Carbon Dioxide Level 22.4 MEQ/L Anion Gap 10 MEQ/L Estimat Glomerular Filtration Rate 126 ML/MIN Thyroid Stimulating Hormone 3rd Gen 0.752 uIU/ML Salicylates Level 4.0 MG/DL Urine Opiates Screen NEG Acetaminophen Level LESS THAN 2.0 MCG/ML Urine Barbiturates Screen NEG Urine Amphetamines Screen NEG Urine Benzodiazepines Screen POS Urine Cocaine Screen NEG Urine Cannabinoids Screen NEG Ethyl Alcohol Level 223 MG/DL MDM Medical Decision Making Medical Screen Exam Complete: Yes Emergency Medical Condition: Yes Medical Record Reviewed: Yes Differential Diagnosis Depression, suicidal ideation, alcohol intoxication Narrative Course Vital signs and labs reviewed. Alcohol level is 223. The patient is medically cleared for psychiatric evaluation and disposition by them. Diagnosis Primary Impression: Alcohol abuse with alcohol-induced mood disorder Kevin Ledesma MD Apr 21, 2017 17:25
[2017-04-21 18:09] LABS: AUTOMATED NEUTROPHIL # 2.2 TH/MM3 (1.8-7.7); BASOPHIL # 0.1 TH/MM3 (0-0.2); BASOPHIL % 1.4 % (0.0-2.0); EOSINOPHIL % 0.8 % (0.0-4.0); HEMATOCRIT 35.3 % (39.0-51.0); HEMOGLOBIN 12.4 GM/DL (13.0-17.0); LYMPH % 39.9 % (9.0-44.0); LYMPHOCYTE # 1.8 TH/MM3 (1.0-4.8); MEAN CELL VOLUME 96.9 FL (80.0-100.0); MEAN CORPUSCULAR HGB CONC 35.1 % (32.0-36.0); MEAN PLATELET VOLUME 7.6 FL (7.0-11.0); MONOCYTE # 0.4 TH/MM3 (0-0.9); NEUT % 49.9 % (16.0-70.0); PLATELET COUNT 273 TH/MM3 (150-450); RED BLOOD COUNT 3.64 MIL/MM3 (4.50-5.90); RED CELL DISTRIBUTION WIDTH 14.1 % (11.6-17.2); WHITE BLOOD COUNT 4.4 TH/MM3 (4.0-11.0)
[2017-04-21 18:14] VITALS: BP 112/67; PULSE 93; RESP 18; TEMP 98.6; O2SAT 97
[2017-04-21 18:30] LABS: ALBUMIN 3.5 GM/DL (3.4-5.0); ALT (GPT) 24 U/L (12-78); AST (GOT) 23 U/L (15-37); BICARBONATE 22.4 MEQ/L (21.0-32.0); BLOOD UREA NITROGEN 4 MG/DL (7-18); CALCIUM 8.4 MG/DL (8.5-10.1); CHLORIDE 106 MEQ/L (98-107); CREATININE 0.64 MG/DL (0.60-1.30); GLOMERULAR FILTRATION RATE 126 ML/MIN (>89); GLUCOSE,RANDOM 72 MG/DL (74-106); SODIUM (NA) 138 MEQ/L (136-145)
[2017-04-21 18:40] LABS: ALKALINE PHOSPHATASE 73 U/L (45-117); TOTAL BILIRUBIN ADULT 0.2 MG/DL (0.2-1.0); TOTAL PROTEIN 7.1 GM/DL (6.4-8.2)
[2017-04-21 18:44] LABS: ACETAMINOPHEN LESS THAN 2.0 MCG/ML (10.0-30.0)
[2017-04-22 06:45] VITALS: BP 130/70; PULSE 92; RESP 18; TEMP 97.9; O2SAT 96
[2017-04-22 14:40] VITALS: BP 136/80; PULSE 75; RESP 16; O2SAT 98
== END 2017-04-22 16:01 ==
LOC: NEPD 16:33 → NEPJ 04-22 16:01
DX: F10.14 Alcohol abuse with alcohol-induced mood disorder (principal); Y90.7 Blood alcohol level of 200-239 mg/100 ml; F31.9 Bipolar disorder, unspecified; F41.9 Anxiety disorder, unspecified; Z86.73 Personal history of transient ischemic attack (TIA), and cerebral infarction without residual deficits; Z79.899 Other long term (current) drug therapy
CPT/HCPCS: 80053; 80307; 84443; 85025; 99285

== ENCOUNTER 2017-05-08 17:08 | Emergency (ER) | payer OTHER ==
[~2017-05-08] VITALS: Ht 177.8 cm; Wt 90.0 kg
[2017-05-08 17:11] VITALS: BP 133/81; PULSE 91; RESP 14; TEMP 98.8; O2SAT 96
--- NOTE | 2017-05-08 18:06 | PD ---
HPI Chief Complaint: Psychiatric Symptoms Time Seen by Provider: 17:55 Travel History International Travel<30 days: No Contact w/Intl Traveler<30days: No Traveled to known affect area: No History of Present Illness HPI This patient has a homeless alcoholic who has depression and says that he was feeling suicidal today. He tried to hang himself with a rope over a tree branch. It did not work and the rope promptly gave way and he came back to the ground. He has been drinking heavily today. He is a chronic alcoholic. Denies drug use. Symptoms moderately severe. Duration is many weeks. No alleviating factors. Symptoms exacerbated by his homelessness and alcoholism. He denies headache or head injury. He is not having neck pain. PFSH Past Medical History Arthritis: Yes Bipolar Disorder: Yes Anxiety: Yes Depression: Yes Cardiovascular Problems: Yes Cerebrovascular Accident: Yes Diabetes: No Diminished Hearing: No Herniated Disk: Yes Musculoskeletal: Yes Psychiatric: Yes Seizures: Yes Tetanus Vaccination: < 5 Years Social History Alcohol Use: Yes (DAILY) Tobacco Use: Yes (2 PPD) Substance Use: Yes (ALCOHOLIC) Allergies-Medications (Allergen,Severity, Reaction): Coded Allergies: No Known Allergies (Unverified Allergy, Unknown, 04/21/17) Reported Meds & Prescriptions Reported Meds & Active Scripts Active Effexor XR 24 HR (Venlafaxine HCl) 37.5 Mg Cap 37.5 Mg PO DAILY Trazodone (Trazodone HCl) 50 Mg Tab 50 Mg PO HS Gnp Vitamin B-1 (Thiamine HCl) 100 Mg Tab 100 Mg PO DAILY Quetiapine (Quetiapine Fumarate) 100 Mg Tab 100 Mg PO HS Thera Tablet (Multivitamin with Folic Acid) 400 Mcg Tablet 1 Tab PO DAILY Magnesium Oxide 400 Mg Tab 400 Mg PO Q12HR Folic Acid 1 Mg Tablet 1 Mg PO DAILY Review of Systems General / Constitutional: No: Fever Eyes: No: Visual changes HENT: No: Headaches Cardiovascular: No: Chest Pain or Discomfort Respiratory: No: Shortness of Breath Gastrointestinal: No: Abdominal Pain Genitourinary: No: Dysuria Musculoskeletal: No: Pain Skin: No Rash Neurologic: No: Weakness Psychiatric: Positive: Depression, Suicidal Ideations, Substance Abuse Endocrine: No: Polydipsia Hematologic/Lymphatic: No: Easy Bruising Physical Exam Narrative GENERAL: disheveled, well-developed patient in no apparent distress. SKIN: Focused skin assessment reveals no rash and nodules. Skin is Warm and dry. HEAD: Atraumatic. Normocephalic. EYES: Pupils equal and round. No scleral icterus. No injection or drainage. ENT: No nasal bleeding or discharge. Mucous membranes pink and moist. NECK: Trachea midline. No JVD. Faint pink line on the posterior neck, nothing anterior CARDIOVASCULAR: Regular rate and rhythm. No murmur appreciated. RESPIRATORY: No accessory muscle use. Clear to auscultation. Breath sounds equal bilaterally. GASTROINTESTINAL: Abdomen soft, non-tender, nondistended. Hepatic and splenic margins not palpable. MUSCULOSKELETAL: No obvious deformities. No clubbing. No cyanosis. No edema. NEUROLOGICAL: Awake and alert. No obvious cranial nerve deficits. Motor grossly within normal limits. s no midline tenderness. No bruising or swelling. There is a lurred speech. PSYCHIATRIC: Depressed mood and flat affect; insight and judgment poor . Data Data Last Documented VS Vital Signs Date Time Temp Pulse Resp B/P (MAP) Pulse Ox O2 Delivery O2 Flow Rate FiO2 05/08/17 17:11 98.8 91 14 133/81 (98) 96 Room Air Orders Orders Complete Blood Count With Diff (05/08/17 18:00) Comprehensive Metabolic Panel (05/08/17 18:00) Thyroid Stimulating Hormone (05/08/17 18:00) Iv Access Insert/Monitor (05/08/17 18:00) Psych Screen (05/08/17 18:00) Drug Screen, Random Urine (05/08/17 18:00) Alcohol (Ethanol) (05/08/17 18:00) Spine, Cervical - Ltd (Ap&Lat) (05/08/17 ) Labs Laboratory Tests Test 05/08/17 18:05 White Blood Count 5.9 TH/MM3 Red Blood Count 4.07 MIL/MM3 Hemoglobin 13.7 GM/DL Hematocrit 38.6 % Mean Corpuscular Volume 94.8 FL Mean Corpuscular Hemoglobin 33.6 PG Mean Corpuscular Hemoglobin Concent 35.4 % Red Cell Distribution Width 13.2 % Platelet Count 285 TH/MM3 Mean Platelet Volume 7.3 FL Neutrophils (%) (Auto) 59.7 % Lymphocytes (%) (Auto) 32.5 % Monocytes (%) (Auto) 6.9 % Eosinophils (%) (Auto) 0.1 % Basophils (%) (Auto) 0.8 % Neutrophils # (Auto) 3.5 TH/MM3 Lymphocytes # (Auto) 1.9 TH/MM3 Monocytes # (Auto) 0.4 TH/MM3 Eosinophils # (Auto) 0.0 TH/MM3 Basophils # (Auto) 0.0 TH/MM3 CBC Comment DIFF FINAL Differential Comment Blood Urea Nitrogen 8 MG/DL Creatinine 0.76 MG/DL Random Glucose 84 MG/DL Total Protein 7.5 GM/DL Albumin 4.0 GM/DL Calcium Level 8.3 MG/DL Alkaline Phosphatase 74 U/L Aspartate Amino Transf (AST/SGOT) 23 U/L Alanine Aminotransferase (ALT/SGPT) 20 U/L Total Bilirubin 0.3 MG/DL Sodium Level 134 MEQ/L Potassium Level 3.8 MEQ/L Chloride Level 102 MEQ/L Carbon Dioxide Level 20.4 MEQ/L Anion Gap 12 MEQ/L Estimat Glomerular Filtration Rate 104 ML/MIN Thyroid Stimulating Hormone 3rd Gen 0.852 uIU/ML Urine Opiates Screen NEG Urine Barbiturates Screen NEG Urine Amphetamines Screen NEG Urine Benzodiazepines Screen NEG Urine Cocaine Screen NEG Urine Cannabinoids Screen NEG Ethyl Alcohol Level 329 MG/DL MDM Medical Decision Making Medical Screen Exam Complete: Yes Emergency Medical Condition: Yes Medical Record Reviewed: Yes Differential Diagnosis Depression, suicidal ideation, malingering, alcohol intoxication Narrative Course I have reviewed the patient's electronic medical record. Patient was here 2 weeks ago for the same thing, attempted hanging Ordered medical clearance workup Ordered psychiatric evaluation, patient is agreeable and desires this CBC and metabolic studies and TSH are normal Alcohol level is 329 showing significant intoxication acutely He will get a lot of time to sober up I reviewed his cervical spine films which are stable from prior and show mild anterior listhesis but no fracture or change in positioning from prior He will be getting psychiatric evaluation for disposition Diagnosis Primary Impression: Alcohol abuse with alcohol-induced mood disorder Additional Impressions: Acute alcohol intoxication Qualified Codes: F10.929 - Alcohol use, unspecified with intoxication, unspecified Depression with suicidal ideation Donald Garvin MD May 08, 2017 18:06
[2017-05-08 18:43] LABS: AUTOMATED NEUTROPHIL # 3.5 TH/MM3 (1.8-7.7); BASOPHIL % 0.8 % (0.0-2.0); EOSINOPHIL % 0.1 % (0.0-4.0); HEMATOCRIT 38.6 % (39.0-51.0); HEMOGLOBIN 13.7 GM/DL (13.0-17.0); LYMPH % 32.5 % (9.0-44.0); LYMPHOCYTE # 1.9 TH/MM3 (1.0-4.8); MEAN CELL VOLUME 94.8 FL (80.0-100.0); MEAN CORPUSCULAR HEMOGLOBIN 33.6 PG (27.0-34.0); MEAN CORPUSCULAR HGB CONC 35.4 % (32.0-36.0); MEAN PLATELET VOLUME 7.3 FL (7.0-11.0); MONO % 6.9 % (0.0-8.0); MONOCYTE # 0.4 TH/MM3 (0-0.9); NEUT % 59.7 % (16.0-70.0); PLATELET COUNT 285 TH/MM3 (150-450); RED BLOOD COUNT 4.07 MIL/MM3 (4.50-5.90); RED CELL DISTRIBUTION WIDTH 13.2 % (11.6-17.2); WHITE BLOOD COUNT 5.9 TH/MM3 (4.0-11.0)
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
[2017-05-08 18:54] LABS: ALT (GPT) 20 U/L (12-78); AST (GOT) 23 U/L (15-37); BICARBONATE 20.4 MEQ/L (21.0-32.0); BLOOD UREA NITROGEN 8 MG/DL (7-18); CALCIUM 8.3 MG/DL (8.5-10.1); CHLORIDE 102 MEQ/L (98-107); CREATININE 0.76 MG/DL (0.60-1.30); GLOMERULAR FILTRATION RATE 104 ML/MIN (>89); GLUCOSE,RANDOM 84 MG/DL (74-106); SODIUM (NA) 134 MEQ/L (136-145)
[2017-05-08 19:04] LABS: ALKALINE PHOSPHATASE 74 U/L (45-117); TOTAL BILIRUBIN ADULT 0.3 MG/DL (0.2-1.0); TOTAL PROTEIN 7.5 GM/DL (6.4-8.2)
[2017-05-09 05:52] VITALS: BP 136/77; PULSE 96; RESP 16; O2SAT 97
[2017-05-09] MEDS ORDERED: LORazepam 2 MG/ML VIAL IV PUSH PRN ×4 (06:00)
[2017-05-09] MEDS ORDERED: LORazepam 1 MG TAB PO PRN (06:00)
[2017-05-09] MEDS ORDERED: FLUMAZENIL 0.5 MG/5 ML VIAL IV PUSH PRN (06:00)
[2017-05-09] MEDS ORDERED: LORazepam 2 MG TAB PO PRN (06:00)
[2017-05-09] MEDS ORDERED: ONDANSETRON ODT 4 MG TAB PO PRN (06:00)
[2017-05-09 07:00] VITALS: BP 132/74; PULSE 92; RESP 16; TEMP 98.2; O2SAT 98
[2017-05-09] MEDS ORDERED: SERO400T PO (07:54)
--- NOTE | 2017-05-09 09:44 | PD ---
Physical Exam Time Seen by Provider: 09:[address] Yo has evaluated the patient, lifted Gannon act and cleared the patient for discharge. Data Data Last Documented VS Vital Signs Date Time Temp Pulse Resp B/P (MAP) Pulse Ox O2 Delivery O2 Flow Rate FiO2 05/09/17 07:00 98.2 92 16 132/74 (93) 98 Room Air Orders Orders Complete Blood Count With Diff (05/08/17 18:00) Comprehensive Metabolic Panel (05/08/17 18:00) Thyroid Stimulating Hormone (05/08/17 18:00) Iv Access Insert/Monitor (05/08/17 18:00) Psych Screen (05/08/17 18:00) Drug Screen, Random Urine (05/08/17 18:00) Alcohol (Ethanol) (05/08/17 18:00) Spine, Cervical - Ltd (Ap&Lat) (05/08/17 ) Diet Regular Basic (05/09/17 Breakfast) Alcohol Withdrawal Asmt-Ciwa ONCE (05/09/17 05:52) Ondansetron Odt (Zofran Odt) (05/09/17 06:00) Flumazenil Inj (Romazicon Inj) (05/09/17 06:00) Lorazepam (Ativan) (05/09/17 06:00) Lorazepam Inj (Ativan Inj) (05/09/17 06:00) Lorazepam (Ativan) (05/09/17 06:00) Lorazepam Inj (Ativan Inj) (05/09/17 06:00) Lorazepam Inj (Ativan Inj) (05/09/17 06:00) Lorazepam Inj (Ativan Inj) (05/09/17 06:00) Labs Laboratory Tests Test 05/08/17 18:05 White Blood Count 5.9 TH/MM3 Red Blood Count 4.07 MIL/MM3 Hemoglobin 13.7 GM/DL Hematocrit 38.6 % Mean Corpuscular Volume 94.8 FL Mean Corpuscular Hemoglobin 33.6 PG Mean Corpuscular Hemoglobin Concent 35.4 % Red Cell Distribution Width 13.2 % Platelet Count 285 TH/MM3 Mean Platelet Volume 7.3 FL Neutrophils (%) (Auto) 59.7 % Lymphocytes (%) (Auto) 32.5 % Monocytes (%) (Auto) 6.9 % Eosinophils (%) (Auto) 0.1 % Basophils (%) (Auto) 0.8 % Neutrophils # (Auto) 3.5 TH/MM3 Lymphocytes # (Auto) 1.9 TH/MM3 Monocytes # (Auto) 0.4 TH/MM3 Eosinophils # (Auto) 0.0 TH/MM3 Basophils # (Auto) 0.0 TH/MM3 CBC Comment DIFF FINAL Differential Comment Blood Urea Nitrogen 8 MG/DL Creatinine 0.76 MG/DL Random Glucose 84 MG/DL Total Protein 7.5 GM/DL Albumin 4.0 GM/DL Calcium Level 8.3 MG/DL Alkaline Phosphatase 74 U/L Aspartate Amino Transf (AST/SGOT) 23 U/L Alanine Aminotransferase (ALT/SGPT) 20 U/L Total Bilirubin 0.3 MG/DL Sodium Level 134 MEQ/L Potassium Level 3.8 MEQ/L Chloride Level 102 MEQ/L Carbon Dioxide Level 20.4 MEQ/L Anion Gap 12 MEQ/L Estimat Glomerular Filtration Rate 104 ML/MIN Thyroid Stimulating Hormone 3rd Gen 0.852 uIU/ML Urine Opiates Screen NEG Urine Barbiturates Screen NEG Urine Amphetamines Screen NEG Urine Benzodiazepines Screen NEG Urine Cocaine Screen NEG Urine Cannabinoids Screen NEG Ethyl Alcohol Level 329 MG/DL MDM Supervised Visit with [facility]: No Narrative Course Dr. Yo has evaluated the patient, lifted Teressa boo and cleared the patient for discharge. Patient contracts safety. Denies suicidal or homicidal ideations. Patient will be provided community resource packet to [facility] for follow-up. Has friends and family for support. Patient was medically cleared by alternate provider prior to psych screening. Patient has been evaluated by psychiatry and and is now cleared for discharge. Diagnosis Primary Impression: Alcohol abuse with alcohol-induced mood disorder Additional Impressions: Depression with suicidal ideation Acute alcohol intoxication Qualified Codes: F10.929 - Alcohol use, unspecified with intoxication, unspecified Referrals: [facility] (Out patient) [facility] Primary Care Physician Psychiatrist [facility] Patient Instructions: Abuse of Alcohol (ED), Alcohol Dependence (ED), Alcohol Intoxication (ED), General Instructions Additional Instruction: Contract safety to your self and others Stop drinking alcohol Follow-up in the community for community support, such as Alcoholics Anonymous Follow-up with psychiatry Follow-up with primary care provider Follow-up with Frank Akhtar Return to the emergency department immediately with worsening of symptoms Med/Other Pt SpecificInfo: No Change to Meds, No Meds Exist/No RX given Disposition: 01 DISCHARGE HOME Condition: Stable Rashida Sepulveda May 09, 2017 09:44
[2017-05-09 09:46] VITALS: BP 128/78
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
== END 2017-05-09 09:49 | disposition home or self-care (01) ==
LOC: NEPD 17:08
DX: F10.229 Alcohol dependence with intoxication, unspecified (principal); F31.9 Bipolar disorder, unspecified; F17.200 Nicotine dependence, unspecified, uncomplicated; Y90.8 Blood alcohol level of 240 mg/100 ml or more; Z59.0 Homelessness; Z79.899 Other long term (current) drug therapy
CPT/HCPCS: 72040; 80053; 80307; 84443; 85025; 99284

== ENCOUNTER 2017-05-11 17:19 | Emergency (ER) | payer OTHER ==
[~2017-05-11] VITALS: Ht 177.8 cm; Wt 91.0 kg
[~2017-05-11 17:19] MED LIST changes: -QUET1TAB8 PO; +SERO400T PO; -VENL1CAP38 PO
[2017-05-11 17:30] VITALS: BP 127/73; PULSE 81; RESP 16; TEMP 97.8; O2SAT 97
[2017-05-11 19:10] LABS: AUTOMATED NEUTROPHIL # 2.9 TH/MM3 (1.8-7.7); BASOPHIL # 0.1 TH/MM3 (0-0.2); BASOPHIL % 1.1 % (0.0-2.0); EOSINOPHIL % 0.2 % (0.0-4.0); HEMATOCRIT 41.7 % (39.0-51.0); HEMOGLOBIN 14.5 GM/DL (13.0-17.0); LYMPHOCYTE # 2.2 TH/MM3 (1.0-4.8); MEAN CELL VOLUME 96.8 FL (80.0-100.0); MEAN CORPUSCULAR HEMOGLOBIN 33.6 PG (27.0-34.0); MEAN CORPUSCULAR HGB CONC 34.7 % (32.0-36.0); MEAN PLATELET VOLUME 7.5 FL (7.0-11.0); MONO % 5.4 % (0.0-8.0); MONOCYTE # 0.3 TH/MM3 (0-0.9); NEUT % 53.3 % (16.0-70.0); PLATELET COUNT 285 TH/MM3 (150-450); RED CELL DISTRIBUTION WIDTH 13.6 % (11.6-17.2); WHITE BLOOD COUNT 5.4 TH/MM3 (4.0-11.0)
[2017-05-11 19:21] LABS: ALT (GPT) 23 U/L (12-78)
[2017-05-11 19:23] LABS: ALKALINE PHOSPHATASE 76 U/L (45-117); TOTAL BILIRUBIN ADULT 0.4 MG/DL (0.2-1.0); TOTAL PROTEIN 7.2 GM/DL (6.4-8.2)
[2017-05-11 19:26] LABS: ALBUMIN 3.6 GM/DL (3.4-5.0); AST (GOT) 38 U/L (15-37); BICARBONATE 22.6 MEQ/L (21.0-32.0); BLOOD UREA NITROGEN 7 MG/DL (7-18); CALCIUM 8.7 MG/DL (8.5-10.1); CHLORIDE 101 MEQ/L (98-107); CREATININE 0.72 MG/DL (0.60-1.30); GLOMERULAR FILTRATION RATE 110 ML/MIN (>89); GLUCOSE,RANDOM 114 MG/DL (74-106); SODIUM (NA) 133 MEQ/L (136-145)
[2017-05-11 19:55] VITALS: BP 119/65; PULSE 84; RESP 16; TEMP 97.9; O2SAT 96
[2017-05-11] MEDS ORDERED: SODIUM CHLOR 0.9% 1000 ML INJ 1,000 ML IV SCH (19:56)
[2017-05-11] MEDS ORDERED: SODIUM CHLORIDE 0.9% FLUSH 10 ML FLUSH IV FLUSH PRN (20:00)
[2017-05-11 20:37] LABS: ACETAMINOPHEN 19.1 MCG/ML (10.0-30.0)
[2017-05-11 21:05] LABS: BILIRUBIN, URINE NEG (NEG); BLOOD, URINE NEG (NEG); GLUCOSE,URINE NEG (NEG); KETONE, URINE NEG (NEG); NITRITE,URINE NEG (NEG); PH, URINE 5.5 (5.0-8.5); URINE COLOR LIGHT-YELLOW (YELLW/STRAW); URINE LEUKOCYTE ESTERASE NEG (NEG)
--- NOTE | 2017-05-11 21:24 | RADRPT ---
EXAM DATE/TIME: 05/11/2017 20:24 [facility] COMPARISON: CHEST SINGLE AP, April 19, 2017, 14:48. INDICATIONS : Short of breath. MEDICAL HISTORY : None. SURGICAL HISTORY : None. ENCOUNTER: Initial ACUITY: 1 day PAIN SCORE: 0/10 LOCATION: Left chest FINDINGS: A single view of the chest demonstrates the lungs to be symmetrically aerated without evidence of mas s, infiltrate or effusion. The cardiomediastinal contours are unremarkable. Osseous structures are intact. CONCLUSION: 1. No acute cardiopulmonary disease. Chung Martinez MD on May 11, 2017 at 21:22 Board Certified Radiologist. This report was verified electronically.
--- NOTE | 2017-05-11 21:27 | PD ---
HPI . Generalized weakness Chief Complaint: General Weakness Time Seen by Provider: 19:54 Travel History International Travel<30 days: No Contact w/Intl Traveler<30days: No Traveled to known affect area: No History of Present Illness HPI Patient's friend called the ambulance to have this patient transported to the ED for the medical complaint of generalized weakness, however upon presentation to room 57 the patient notes profound depression is tearful and states that he has been having suicidal thoughts recently just as little as 1 week ago patient thought about hanging himself. Patient has not acted out on his thoughts recently and especially not today, however patient is quite concerned for his own welfare. Patient states that he drinks approximately half gallon of vodka a day he has done that for many years and he has not quite drank that amount today. Patient denies any current tremors, visual hallucinations, or seizures. PFSH Past Medical History Narrative Medical Past medical history reviewed Arthritis: Yes Bipolar Disorder: Yes Anxiety: Yes Depression: Yes Cardiovascular Problems: Yes Cerebrovascular Accident: Yes Diabetes: No Diminished Hearing: No Herniated Disk: Yes Musculoskeletal: Yes Psychiatric: Yes Seizures: Yes Tetanus Vaccination: < 5 Years Influenza Vaccination: No Social History Alcohol Use: Yes (DAILY) Tobacco Use: Yes (2 PPD) Substance Use: Yes (ALCOHOLIC) Allergies-Medications (Allergen,Severity, Reaction): Coded Allergies: No Known Allergies (Verified Allergy, Unknown, 05/11/17) Reported Meds & Prescriptions Reported Meds & Active Scripts Active Trazodone (Trazodone HCl) 50 Mg Tab 50 Mg PO HS Reported Seroquel (Quetiapine Fumarate) 400 Mg Tab 400 Mg PO HS Narrative Medication Allergies and medications reviewed Review of Systems General / Constitutional: No: Fever, Chills Eyes: No: Visual changes HENT: No: Headaches, Vertigo Cardiovascular: No: Chest Pain or Discomfort, Palpitations, Irregular Rhythm Respiratory: No: Shortness of Breath Gastrointestinal: No: Nausea, Vomiting, Abdominal Pain, Hematemesis, Hematochezia Genitourinary: No: Dysuria Musculoskeletal: No: Pain Skin: No Rash Neurologic: No: Weakness, Syncope, Change in Mentation, Slurred Speech, Seizures Psychiatric: No: Depression Endocrine: No: Polydipsia Hematologic/Lymphatic: No: Easy Bruising Physical Exam Narrative GENERAL: Awake and alert oriented 3 no acute distress vital signs afebrile normal and stable. SKIN: Warm and dry. Color is normal diaphoresis and pallor HEAD: Atraumatic. Normocephalic. EYES: Pupils equal and round. No scleral icterus. No injection or drainage. ENT: No nasal bleeding or discharge. Mucous membranes pink and moist. NECK: Trachea midline. No JVD. Supple nontender full range of motion CARDIOVASCULAR: Regular rate and rhythm. S1-S2 no murmurs rubs or gallops RESPIRATORY: No accessory muscle use. Clear to auscultation. Breath sounds equal bilaterally. GASTROINTESTINAL: Abdomen soft, non-tender, nondistended. Hepatic and splenic margins not palpable. MUSCULOSKELETAL: Extremities without clubbing, cyanosis, or edema. No obvious deformities. NEUROLOGICAL: Awake and alert. No obvious focal deficits. No asterixis. No seizure activity, reflexes 2+ equal bilateral 4 PSYCHIATRIC: Patient has depressive thoughts, is intermittently tearful when speaking of them. Patient notes suicidal ideations recently Data Data Last Documented VS Vital Signs Date Time Temp Pulse Resp B/P (MAP) Pulse Ox O2 Delivery O2 Flow Rate FiO2 05/11/17 19:55 97.9 84 16 119/65 (83) 96 Room Air Orders Orders Complete Blood Count With Diff (05/11/17 18:07) Comprehensive Metabolic Panel (05/11/17 18:07) Iv Access Insert/Monitor (05/11/17 18:07) Ammonia (05/11/17 19:56) Thyroid Stimulating Hormone (05/11/17 19:56) Urinalysis - C+S If Indicated (05/11/17 19:56) Lactic Acid Sepsis Protocol (05/11/17 19:56) Chest, Single Ap (05/11/17 19:56) Blood Glucose (05/11/17 19:56) Ecg Monitoring (05/11/17 19:56) Oximetry (05/11/17 19:56) Sodium Chloride 0.9% Flush (Ns Flush) (05/11/17 20:00) Sodium Chlor 0.9% 1000 Ml Inj (Ns 1000 M (05/11/17 19:56) Drug Screen, Random Urine (05/11/17 19:56) Alcohol (Ethanol) (05/11/17 19:56) Tylenol (Acetaminophen) (05/11/17 19:56) Salicylates (Aspirin) (05/11/17 19:56) Psych Screen (05/11/17 23:11) Labs Laboratory Tests Test 05/11/17 18:40 05/11/17 20:00 05/11/17 20:15 White Blood Count 5.4 TH/MM3 Red Blood Count 4.30 MIL/MM3 Hemoglobin 14.5 GM/DL Hematocrit 41.7 % Mean Corpuscular Volume 96.8 FL Mean Corpuscular Hemoglobin 33.6 PG Mean Corpuscular Hemoglobin Concent 34.7 % Red Cell Distribution Width 13.6 % Platelet Count 285 TH/MM3 Mean Platelet Volume 7.5 FL Neutrophils (%) (Auto) 53.3 % Lymphocytes (%) (Auto) 40.0 % Monocytes (%) (Auto) 5.4 % Eosinophils (%) (Auto) 0.2 % Basophils (%) (Auto) 1.1 % Neutrophils # (Auto) 2.9 TH/MM3 Lymphocytes # (Auto) 2.2 TH/MM3 Monocytes # (Auto) 0.3 TH/MM3 Eosinophils # (Auto) 0.0 TH/MM3 Basophils # (Auto) 0.1 TH/MM3 CBC Comment DIFF FINAL Differential Comment Blood Urea Nitrogen 7 MG/DL Creatinine 0.72 MG/DL Random Glucose 114 MG/DL Total Protein 7.2 GM/DL Albumin 3.6 GM/DL Calcium Level 8.7 MG/DL Alkaline Phosphatase 76 U/L Aspartate Amino Transf (AST/SGOT) 38 U/L Alanine Aminotransferase (ALT/SGPT) 23 U/L Total Bilirubin 0.4 MG/DL Sodium Level 133 MEQ/L Potassium Level 4.3 MEQ/L Chloride Level 101 MEQ/L Carbon Dioxide Level 22.6 MEQ/L Anion Gap 9 MEQ/L Estimat Glomerular Filtration Rate 110 ML/MIN Thyroid Stimulating Hormone 3rd Gen 0.269 uIU/ML Acetaminophen Level 19.1 MCG/ML Ethyl Alcohol Level 261 MG/DL Urine Color LIGHT-YELLOW Urine Turbidity CLEAR Urine pH 5.5 Urine Specific [place] 1.003 Urine Protein NEG mg/dL Urine Glucose (UA) NEG mg/dL Urine Ketones NEG mg/dL Urine Occult Blood NEG Urine Nitrite NEG Urine Bilirubin NEG Urine Urobilinogen LESS THAN 2.0 MG/DL Urine Leukocyte Esterase NEG Microscopic Urinalysis Comment CATH-CULT NOT IND Urine Opiates Screen NEG Urine Barbiturates Screen NEG Urine Amphetamines Screen NEG Urine Benzodiazepines Screen NEG Urine Cocaine Screen NEG Urine Cannabinoids Screen NEG MDM Medical Decision Making Medical Screen Exam Complete: Yes Emergency Medical Condition: Yes Medical Record Reviewed: Yes Differential Diagnosis Chronic alcoholism, major depression, suicidal ideations Narrative Course Patient's laboratory examinations reviewed, patient has elevated alcohol level consistent with patient's chronic alcoholism and history of daily alcohol use. Patient is not clinically intoxicated however. Patient currently is not showing any signs of acute alcohol withdrawal. Case discussed with [facility] psychiatric intake nurse, medically cleared for psychiatric evaluation. Patient being transferred to [facility] for evaluation Diagnosis Primary Impression: Chronic alcoholism Additional Impressions: Major depression Qualified Codes: F33.1 - Major depressive disorder, recurrent, moderate Suicidal ideation Claudio Johnson MD May 11, 2017 21:27
[2017-05-11 22:00] VITALS: BP 126/78; PULSE 78; RESP 18; O2SAT 98
[2017-05-12 02:13] VITALS: BP 136/75; PULSE 98; RESP 18; O2SAT 97
[2017-05-12 05:03] LABS: LACTIC ACID SEPSIS PROTOCOL 2.1 mmol/L (0.4-2.0)
[2017-05-12 06:48] VITALS: BP 120/59; PULSE 86; RESP 17; O2SAT 96
--- NOTE | 2017-05-12 10:41 | PD ---
Physical Exam Date Seen by Provider: May 12, 2017 Time Seen by Provider: 10:39 Narrative 61-year-old male previously medically cleared for psychiatric evaluation voluntarily, has been seen and evaluated by psychiatric staff and deemed psychiatrically stable for discharge. Patient is to follow with Rodrigo Garvey on an outpatient basis. He remains medically stable at this time Data Data Last Documented VS Vital Signs Date Time Temp Pulse Resp B/P (MAP) Pulse Ox O2 Delivery O2 Flow Rate FiO2 05/12/17 06:48 86 17 120/59 (79) 96 Room Air 05/11/17 19:55 97.9 Orders Orders Complete Blood Count With Diff (05/11/17 18:07) Comprehensive Metabolic Panel (05/11/17 18:07) Iv Access Insert/Monitor (05/11/17 18:07) Ammonia (05/11/17 19:56) Thyroid Stimulating Hormone (05/11/17 19:56) Urinalysis - C+S If Indicated (05/11/17 19:56) Lactic Acid Sepsis Protocol (05/11/17 19:56) Chest, Single Ap (05/11/17 19:56) Blood Glucose (05/11/17 19:56) Ecg Monitoring (05/11/17 19:56) Oximetry (05/11/17 19:56) Sodium Chloride 0.9% Flush (Ns Flush) (05/11/17 20:00) Sodium Chlor 0.9% 1000 Ml Inj (Ns 1000 M (05/11/17 19:56) Drug Screen, Random Urine (05/11/17 19:56) Alcohol (Ethanol) (05/11/17 19:56) Tylenol (Acetaminophen) (05/11/17 19:56) Salicylates (Aspirin) (05/11/17 19:56) Psych Screen (05/11/17 23:11) Diet Regular Basic (05/12/17 Breakfast) Labs Laboratory Tests Test 05/11/17 04:28 05/11/17 18:40 05/11/17 20:00 05/12/17 04:28 Salicylates Level 5.6 MG/DL White Blood Count 5.4 TH/MM3 Red Blood Count 4.30 MIL/MM3 Hemoglobin 14.5 GM/DL Hematocrit 41.7 % Mean Corpuscular Volume 96.8 FL Mean Corpuscular Hemoglobin 33.6 PG Mean Corpuscular Hemoglobin Concent 34.7 % Red Cell Distribution Width 13.6 % Platelet Count 285 TH/MM3 Mean Platelet Volume 7.5 FL Neutrophils (%) (Auto) 53.3 % Lymphocytes (%) (Auto) 40.0 % Monocytes (%) (Auto) 5.4 % Eosinophils (%) (Auto) 0.2 % Basophils (%) (Auto) 1.1 % Neutrophils # (Auto) 2.9 TH/MM3 Lymphocytes # (Auto) 2.2 TH/MM3 Monocytes # (Auto) 0.3 TH/MM3 Eosinophils # (Auto) 0.0 TH/MM3 Basophils # (Auto) 0.1 TH/MM3 CBC Comment DIFF FINAL Differential Comment Blood Urea Nitrogen 7 MG/DL Creatinine 0.72 MG/DL Random Glucose 114 MG/DL Total Protein 7.2 GM/DL Albumin 3.6 GM/DL Calcium Level 8.7 MG/DL Alkaline Phosphatase 76 U/L Aspartate Amino Transf (AST/SGOT) 38 U/L Alanine Aminotransferase (ALT/SGPT) 23 U/L Total Bilirubin 0.4 MG/DL Sodium Level 133 MEQ/L Potassium Level 4.3 MEQ/L Chloride Level 101 MEQ/L Carbon Dioxide Level 22.6 MEQ/L Anion Gap 9 MEQ/L Estimat Glomerular Filtration Rate 110 ML/MIN Thyroid Stimulating Hormone 3rd Gen 0.269 uIU/ML Acetaminophen Level 19.1 MCG/ML Ethyl Alcohol Level 261 MG/DL Urine Color LIGHT-YELLOW Urine Turbidity CLEAR Urine pH 5.5 Urine Specific [place] 1.003 Urine Protein NEG mg/dL Urine Glucose (UA) NEG mg/dL Urine Ketones NEG mg/dL Urine Occult Blood NEG Urine Nitrite NEG Urine Bilirubin NEG Urine Urobilinogen LESS THAN 2.0 MG/DL Urine Leukocyte Esterase NEG Microscopic Urinalysis Comment CATH-CULT NOT IND Urine Opiates Screen NEG Urine Barbiturates Screen NEG Urine Amphetamines Screen NEG Urine Benzodiazepines Screen NEG Urine Cocaine Screen NEG Urine Cannabinoids Screen NEG Lactic Acid Level 2.1 mmol/L Ammonia 28 [facility]/L [facility] Medical Record Reviewed: Yes Supervised Visit with [place]: Yes Narrative Course 61-year-old male previously medically cleared for psychiatric evaluation voluntarily, has been seen and evaluated by psychiatric staff and deemed psychiatrically stable for discharge. Patient is to follow with Rodrigo Garvey on an outpatient basis. He remains medically stable at this time Diagnosis Primary Impression: Chronic alcoholism Additional Impressions: Suicidal ideation Major depression Qualified Codes: F33.1 - Major depressive disorder, recurrent, moderate Referrals: [facility] Patient Instructions: General Instructions Med/Other Pt SpecificInfo: No Meds Exist/No RX given Disposition: 01 DISCHARGE HOME Condition: Stable Guevara Walker May 12, 2017 10:41
--- NOTE | 2017-05-12 11:12 | PD ---
History of Present Illness Chief Complaint: Alcohol dependence Time Seen by Provider: 10:35 Travel History International Travel<30 Days: No Contact w/Intl Traveler<30days: No Known affected area: No Legal Status Legal Status: Voluntary History of Present Illness: Mr. Oseguera is a 61-year-old, , homeless, male who presents voluntarily to the ED by [facility] with complaints of weakness and reporting that he had drank half a gallon of vodka yesterday. Apparently, a psych consult was ordered due to the patient informing the ER doctor that he had thoughts of hanging himself approximately a week ago and is feeling depressed at this time. Patient's had a blood alcohol level of 261. Reviewed electronic medical record and labs. Discussed case with staff. Patient was evaluated in J pod. Patient awake, alert, and oriented 4. His appearance is disheveled and he is malodorous. Ambulating without difficulty. His speech is clear, logical, and organized. He denies thoughts of self-harm, homicidal thoughts, auditory hallucinations, and visual hallucinations. He does not appear to be delusional at this time. His mood is pleasant and his affect is euthymic. 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 Reports that he has recently "come on some hard times and has been using alcohol" to help him get through. He reports that his one previous suicide attempt was approximately a month ago but he "was too drunk to even do it". He recently was admitted to the [facility] for approximately 2 weeks. He reports that his only mental health diagnoses have been depression anxiety. He states that he is medicated and complies however, he admits that he did not take his medicine for approximately the last 2 days. He denies feeling depressed or anxious at this time, and states that he does like to leave now. COUNT INCLUDES THE [facility] Past Medical History Narrative Medical Cleared medically by ED staff. Arthritis: Yes Bipolar Disorder: Yes Anxiety: Yes Depression: Yes Cardiovascular Problems: Yes Cerebrovascular Accident: Yes Diabetes: No Diminished Hearing: No Herniated Disk: Yes Musculoskeletal: Yes Psychiatric: Yes Seizures: Yes Tetanus Vaccination: < 5 Years Influenza Vaccination: No Psychiatric History Psychiatric History Patient recently spent 2 weeks at the [facility]. He has had multiple visits and admissions to this facility. He feels to follow up outpatient and thus far detox has not had the desired effect. Hx Psychiatric Treatment: PATIENT WAS LAST ADMITTED TO [facility] 2017 FOR DEPRESSION. PAST ADMISSIONS TO [facility]. PATIENT HAS HAD MULTIPLE VISITS TO THE EMERGENCY DEPARTMENT DURING 2017 FOR ACUTE ALCOHOL INTOXICATION. HAS BEEN TO [facility] AND [facility]. History of Inpatient Treatment: Yes Guns or firearms in home: No Social History Patient advises that he "lives in a tent in the [facility]". 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 He has no family in the immediate area. He is a chronic alcoholic. Hx Alcohol Use: Yes (DAILY) Hx Tobacco Use: Yes (2 PPD) Hx Substance Use: Yes (ALCOHOLIC) Substance Use Type: Alcohol Hx of Substance Use Treatment: Yes Family Psychiatric History Denies any familial history of mental illness or suicide. Allergies-Medications (Allergen,Severity, Reaction): Coded Allergies: No Known Allergies (Verified Allergy, Unknown, 05/11/17) Reported Meds & Prescriptions Reported Meds & Active Scripts Active Trazodone (Trazodone HCl) 50 Mg Tab 50 Mg PO HS Reported Seroquel (Quetiapine Fumarate) 400 Mg Tab 400 Mg PO HS Mental Status Examination Appearance: Dirty, Disheveled, Malodorous Consciousness: Alert Orientation: x4 Motor Activity: Normal gait Speech: Unremarkable Language: Adequate Fund of Knowledge: Adequate Attention and Concentration: Adequate Memory: Unremarkable Mood: Appropriate Affect: Appropriate Thought Process & Associations: Intact Thought Content: Appropriate Hallucination Type: None Delusion Type: None Suicidal Ideation: No Suicidal Plan: No Suicidal Intention: No Homicidal Ideation: No Homicidal Plan: No Homicidal Intention: No Insight: Adequate Judgment: Adequate [facility] Medical Decision Making Medical Record Reviewed: Yes Assessment/Plan 61-year-old, , homeless, male who presents by [facility] to the emergency department for weakness and alcohol intoxication. Patient is awake, alert, and oriented 4. He has been observed ambulating about the hallways without difficulty. His speech is clear, logical, and organized. He denies any thoughts of self-harm, homicidal ideation, auditory or visual hallucinations. He does not appear delusional at this time. He maintains eye contact and answers questions appropriately throughout the interview. He is future oriented, discussing steps he needs to take to improve his situation. At this time Mr. Oseguera does not meet criteria for inpatient admission. He will be discharged with information for the [facility] outpatient detox office. He was advised to follow-up there. He states understanding of this plan and indicates willingness to comply. Orders Orders Complete Blood Count With Diff (05/11/17 18:07) Comprehensive Metabolic Panel (05/11/17 18:07) Iv Access Insert/Monitor (05/11/17 18:07) Ammonia (05/11/17 19:56) Thyroid Stimulating Hormone (05/11/17 19:56) Urinalysis - C+S If Indicated (05/11/17 19:56) Lactic Acid Sepsis Protocol (05/11/17 19:56) Chest, Single Ap (05/11/17 19:56) Blood Glucose (05/11/17 19:56) Ecg Monitoring (05/11/17 19:56) Oximetry (05/11/17 19:56) Sodium Chloride 0.9% Flush (Ns Flush) (05/11/17 20:00) Sodium Chlor 0.9% 1000 Ml Inj (Ns 1000 M (05/11/17 19:56) Drug Screen, Random Urine (05/11/17 19:56) Alcohol (Ethanol) (05/11/17 19:56) Tylenol (Acetaminophen) (05/11/17 19:56) Salicylates (Aspirin) (05/11/17 19:56) Psych Screen (05/11/17 23:11) Diet Regular Basic (05/12/17 Breakfast) Ed Discharge Order (05/12/17 10:41) Results Vital Signs Date Time Temp Pulse Resp B/P (MAP) Pulse Ox O2 Delivery O2 Flow Rate FiO2 05/12/17 06:48 86 17 120/59 (79) 96 Room Air 05/12/17 02:13 98 18 136/75 (95) 97 Room Air 05/11/17 22:00 78 18 126/78 (94) 98 Room Air 05/11/17 19:55 97.9 84 16 119/65 (83) 96 Room Air 05/11/17 17:30 81 17 97 Room Air 05/11/17 17:30 97.8 81 16 127/73 (91) 97 Laboratory Tests Test 05/11/17 18:40 05/11/17 20:00 05/12/17 04:28 White Blood Count 5.4 Red Blood Count 4.30 Hemoglobin 14.5 Hematocrit 41.7 Mean Corpuscular Volume 96.8 Mean Corpuscular Hemoglobin 33.6 Mean Corpuscular Hemoglobin Concent 34.7 Red Cell Distribution Width 13.6 Platelet Count 285 Mean Platelet Volume 7.5 Neutrophils (%) (Auto) 53.3 Lymphocytes (%) (Auto) 40.0 Monocytes (%) (Auto) 5.4 Eosinophils (%) (Auto) 0.2 Basophils (%) (Auto) 1.1 Neutrophils # (Auto) 2.9 Lymphocytes # (Auto) 2.2 Monocytes # (Auto) 0.3 Eosinophils # (Auto) 0.0 Basophils # (Auto) 0.1 CBC Comment DIFF FINAL Differential Comment Blood Urea Nitrogen 7 Creatinine 0.72 Random Glucose 114 Total Protein 7.2 Albumin 3.6 Calcium Level 8.7 Alkaline Phosphatase 76 Aspartate Amino Transf (AST/SGOT) 38 Alanine Aminotransferase (ALT/SGPT) 23 Total Bilirubin 0.4 Sodium Level 133 Potassium Level 4.3 Chloride Level 101 Carbon Dioxide Level 22.6 Anion Gap 9 Estimat Glomerular Filtration Rate 110 Thyroid Stimulating Hormone 3rd Gen 0.269 Acetaminophen Level 19.1 Ethyl Alcohol Level 261 Urine Color LIGHT-YELLOW Urine Turbidity CLEAR Urine pH 5.5 Urine Specific [place] 1.003 Urine Protein NEG Urine Glucose (UA) NEG Urine Ketones NEG Urine Occult Blood NEG Urine Nitrite NEG Urine Bilirubin NEG Urine Urobilinogen LESS THAN 2.0 Urine Leukocyte Esterase NEG Microscopic Urinalysis Comment CATH-CULT NOT IND Urine Opiates Screen NEG Urine Barbiturates Screen NEG Urine Amphetamines Screen NEG Urine Benzodiazepines Screen NEG Urine Cocaine Screen NEG Urine Cannabinoids Screen NEG Lactic Acid Level 2.1 Ammonia 28 Diagnosis Primary Impression: Alcohol dependence with intoxication, uncomplicated Psychiatrically Cleared: Yes Referrals: [facility] Patient Instructions: General Instructions Disposition: DISCHARGE HOME Condition: Stable FrantzDanny dunawayjohn YOON May 12, 2017 11:12
== END 2017-05-12 12:27 | disposition home or self-care (01) ==
LOC: NEDAMB 17:19 → NEPJ 05-12 12:27
DX: F10.220 Alcohol dependence with intoxication, uncomplicated (principal); F17.200 Nicotine dependence, unspecified, uncomplicated; M19.90 Unspecified osteoarthritis, unspecified site; F31.9 Bipolar disorder, unspecified; F41.9 Anxiety disorder, unspecified; F32.9 Major depressive disorder, single episode, unspecified; R56.9 Unspecified convulsions; Z86.73 Personal history of transient ischemic attack (TIA), and cerebral infarction without residual deficits; Z59.0 Homelessness
CPT/HCPCS: 71045; 80053; 80307; 81001; 82140; 83605; 84443; 85025; 99284

== ENCOUNTER 2017-05-30 16:57 | Emergency (ER) | payer OTHER ==
[~2017-05-30] VITALS: Ht 175.3 cm; Wt 95.0 kg
[~2017-05-30 16:57] MED LIST changes: -FOLI1TAB6 PO; -MAGN400T2 PO; -THERTAB15 PO; -THIA100 PO
[2017-05-30] MEDS ORDERED: SODIUM CHLOR 0.9% 1000 ML INJ 1,000 ML IV SCH (17:22)
[2017-05-30] MEDS ORDERED: SODIUM CHLORIDE 0.9% FLUSH 10 ML FLUSH IVF PRN (17:30)
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
[2017-05-30 19:35] VITALS: BP 136/68; PULSE 108; RESP 20; O2SAT 96
[2017-05-30 20:08] LABS: AUTOMATED NEUTROPHIL # 6.9 TH/MM3 (1.8-7.7); BASOPHIL % 0.5 % (0.0-2.0); HEMATOCRIT 41.7 % (39.0-51.0); HEMOGLOBIN 14.4 GM/DL (13.0-17.0); LYMPH % 13.4 % (9.0-44.0); LYMPHOCYTE # 1.2 TH/MM3 (1.0-4.8); MEAN CELL VOLUME 94.6 FL (80.0-100.0); MEAN CORPUSCULAR HEMOGLOBIN 32.8 PG (27.0-34.0); MEAN CORPUSCULAR HGB CONC 34.6 % (32.0-36.0); MEAN PLATELET VOLUME 7.8 FL (7.0-11.0); NEUT % 75.1 % (16.0-70.0); PLATELET COUNT 273 TH/MM3 (150-450); RED BLOOD COUNT 4.41 MIL/MM3 (4.50-5.90); RED CELL DISTRIBUTION WIDTH 13.5 % (11.6-17.2); WHITE BLOOD COUNT 9.2 TH/MM3 (4.0-11.0)
[2017-05-30 20:24] LABS: ALBUMIN 4.3 GM/DL (3.4-5.0); ALT (GPT) 39 U/L (12-78); AST (GOT) 40 U/L (15-37); BICARBONATE 21.7 MEQ/L (21.0-32.0); BLOOD UREA NITROGEN 8 MG/DL (7-18); CALCIUM 8.9 MG/DL (8.5-10.1); CHLORIDE 101 MEQ/L (98-107); CREATININE 0.78 MG/DL (0.60-1.30); GLOMERULAR FILTRATION RATE 101 ML/MIN (>89); GLUCOSE,RANDOM 70 MG/DL (74-106); INTERNATIONAL NORMALIZED RATIO 1.1 RATIO; PROTHROMBIN TIME - PATIENT 10.9 SEC (9.8-11.6); SODIUM (NA) 139 MEQ/L (136-145)
[2017-05-30 20:26] LABS: ALKALINE PHOSPHATASE 99 U/L (45-117); TOTAL BILIRUBIN ADULT 0.4 MG/DL (0.2-1.0); TOTAL PROTEIN 8.4 GM/DL (6.4-8.2)
[2017-05-30] MEDS ORDERED: DEXTROSE 50% IN WATER 50 ML SYRINGE IV PUSH ONE (21:00)
[2017-05-30] MEDS ORDERED: IOHEXOL 350 MG/ML 10 ML VIAL (for RAD DIAG) IVCONTRAST ONE (21:37)
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
[2017-05-31 01:30] VITALS: BP 126/56; PULSE 110; RESP 18; O2SAT 95
== END 2017-05-31 06:43 | disposition home or self-care (01) ==
LOC: NEPD 16:57 → NEDAMB 05-31 06:43
DX: S02.2XXA Fracture of nasal bones, initial encounter for closed fracture (principal); S01.412A Laceration without foreign body of left cheek and temporomandibular area, initial encounter; F10.129 Alcohol abuse with intoxication, unspecified; M19.90 Unspecified osteoarthritis, unspecified site; F31.9 Bipolar disorder, unspecified; F41.9 Anxiety disorder, unspecified; F17.210 Nicotine dependence, cigarettes, uncomplicated; Y90.8 Blood alcohol level of 240 mg/100 ml or more; Y00.XXXA Assault by blunt object, initial encounter; Z86.73 Personal history of transient ischemic attack (TIA), and cerebral infarction without residual deficits; Z79.899 Other long term (current) drug therapy
CPT/HCPCS: 12011; 70450; 70486; 71045; 71260; 72125; 72129; 72132; 73080; 73590; 74177; 80053; 80307; 85025; 85610; 85730; 86850; 86900; 86901; 96361; 96374; 99285; J7030; Q9967

== ENCOUNTER 2017-06-11 17:35 | Emergency (ER) | payer OTHER ==
[2017-06-11 17:50] VITALS: BP 147/62; PULSE 96; RESP 14; TEMP 97.8; O2SAT 94
--- NOTE | 2017-06-11 19:38 | PD ---
HPI Chief Complaint: Medical Clearance Time Seen by Provider: 19:36 Travel History International Travel<30 days: No Contact w/Intl Traveler<30days: No Traveled to known affect area: No History of Present Illness HPI 61-year-old male presents emergency department voluntarily for psychiatric evaluation. Patient has been drinking alcohol. He has been increasingly depressed. Reports suicidal thoughts with no active plan. States he has not been taking his medication for bipolar disorder. Does not want to hurt anybody else. Patient has no other symptoms to report. PFSH Past Medical History Arthritis: Yes Bipolar Disorder: Yes Anxiety: Yes Depression: Yes Cardiovascular Problems: Yes Cerebrovascular Accident: Yes Diabetes: No Diminished Hearing: No Herniated Disk: Yes Musculoskeletal: Yes Psychiatric: Yes Seizures: Yes Social History Alcohol Use: Yes (1/2 GALLON VODKA DAILY) Tobacco Use: Yes (2 PPD) Substance Use: No Allergies-Medications (Allergen,Severity, Reaction): Coded Allergies: No Known Allergies (Verified Allergy, Unknown, 06/11/17) Reported Meds & Prescriptions Reported Meds & Active Scripts Active Trazodone (Trazodone HCl) 50 Mg Tab 50 Mg PO HS Reported Seroquel (Quetiapine Fumarate) 400 Mg Tab 400 Mg PO HS Review of Systems Except as stated in HPI: all other systems reviewed are Neg Physical Exam Narrative GENERAL: Well-nourished male patient, in no acute distress. SKIN: Focused skin assessment warm/dry. HEAD: Atraumatic. Normocephalic. EYES: Pupils equal and round. No scleral icterus. No injection or drainage. ENT: No nasal bleeding or discharge. Mucous membranes pink and moist. NECK: Trachea midline. No JVD. CARDIOVASCULAR: Elevated rate and rhythm. RESPIRATORY: No accessory muscle use. Clear to auscultation. Breath sounds equal bilaterally. GASTROINTESTINAL: Abdomen soft, non-tender, nondistended. Hepatic and splenic margins not palpable. MUSCULOSKELETAL: No obvious deformities. No clubbing. No cyanosis. No edema. NEUROLOGICAL: Awake and alert. No obvious cranial nerve deficits. Motor grossly within normal limits. Normal speech. Data Data Last Documented VS Vital Signs Date Time Temp Pulse Resp B/P (MAP) Pulse Ox O2 Delivery O2 Flow Rate FiO2 06/11/17 22:38 99.2 105 18 119/58 (78) 94 Room Air Orders Orders Complete Blood Count With Diff (06/11/17 19:44) Thyroid Stimulating Hormone (06/11/17 19:44) Basic Metabolic Panel (Bmp) (06/11/17 19:44) Psych Screen (06/11/17 19:44) Drug Screen, Random Urine (06/11/17 19:44) Alcohol (Ethanol) (06/11/17 19:44) Labs Laboratory Tests Test 06/11/17 20:05 White Blood Count 4.6 TH/MM3 Red Blood Count 4.16 MIL/MM3 Hemoglobin 13.7 GM/DL Hematocrit 40.1 % Mean Corpuscular Volume 96.3 FL Mean Corpuscular Hemoglobin 33.0 PG Mean Corpuscular Hemoglobin Concent 34.2 % Red Cell Distribution Width 14.5 % Platelet Count 275 TH/MM3 Mean Platelet Volume 7.3 FL Neutrophils (%) (Auto) 47.8 % Lymphocytes (%) (Auto) 40.4 % Monocytes (%) (Auto) 9.7 % Eosinophils (%) (Auto) 1.2 % Basophils (%) (Auto) 0.9 % Neutrophils # (Auto) 2.2 TH/MM3 Lymphocytes # (Auto) 1.9 TH/MM3 Monocytes # (Auto) 0.4 TH/MM3 Eosinophils # (Auto) 0.1 TH/MM3 Basophils # (Auto) 0.0 TH/MM3 CBC Comment DIFF FINAL Differential Comment Blood Urea Nitrogen 6 MG/DL Creatinine 0.69 MG/DL Random Glucose 71 MG/DL Calcium Level 8.4 MG/DL Sodium Level 140 MEQ/L Potassium Level 3.6 MEQ/L Chloride Level 105 MEQ/L Carbon Dioxide Level 23.4 MEQ/L Anion Gap 12 MEQ/L Estimat Glomerular Filtration Rate 116 ML/MIN Thyroid Stimulating Hormone 3rd Gen 0.876 uIU/ML Urine Opiates Screen NEG Urine Barbiturates Screen NEG Urine Amphetamines Screen NEG Urine Benzodiazepines Screen NEG Urine Cocaine Screen NEG Urine Cannabinoids Screen NEG Ethyl Alcohol Level 253 MG/DL MDM Medical Decision Making Medical Screen Exam Complete: Yes Emergency Medical Condition: Yes Medical Record Reviewed: Yes Differential Diagnosis Mood disorder versus personality disorder versus adjustment reaction disorder versus substance abuse Narrative Course 61-year-old male presents emergency department voluntarily for psychiatric evaluation. Patient states he has been drinking alcohol and would like to detox from this. He also reports depression with suicidal ideations. No active plan. Patient appears without distress. Laboratory Tests Test 06/11/17 20:05 White Blood Count 4.6 TH/MM3 Red Blood Count 4.16 MIL/MM3 Hemoglobin 13.7 GM/DL Hematocrit 40.1 % Mean Corpuscular Volume 96.3 FL Mean Corpuscular Hemoglobin 33.0 PG Mean Corpuscular Hemoglobin Concent 34.2 % Red Cell Distribution Width 14.5 % Platelet Count 275 TH/MM3 Mean Platelet Volume 7.3 FL Neutrophils (%) (Auto) 47.8 % Lymphocytes (%) (Auto) 40.4 % Monocytes (%) (Auto) 9.7 % Eosinophils (%) (Auto) 1.2 % Basophils (%) (Auto) 0.9 % Neutrophils # (Auto) 2.2 TH/MM3 Lymphocytes # (Auto) 1.9 TH/MM3 Monocytes # (Auto) 0.4 TH/MM3 Eosinophils # (Auto) 0.1 TH/MM3 Basophils # (Auto) 0.0 TH/MM3 CBC Comment DIFF FINAL Differential Comment Blood Urea Nitrogen 6 MG/DL Creatinine 0.69 MG/DL Random Glucose 71 MG/DL Calcium Level 8.4 MG/DL Sodium Level 140 MEQ/L Potassium Level 3.6 MEQ/L Chloride Level 105 MEQ/L Carbon Dioxide Level 23.4 MEQ/L Anion Gap 12 MEQ/L Estimat Glomerular Filtration Rate 116 ML/MIN Thyroid Stimulating Hormone 3rd Gen 0.876 uIU/ML Urine Opiates Screen NEG Urine Barbiturates Screen NEG Urine Amphetamines Screen NEG Urine Benzodiazepines Screen NEG Urine Cocaine Screen NEG Urine Cannabinoids Screen NEG Ethyl Alcohol Level 253 MG/DL Lab work is reviewed. It is without acute concern except for EtOH at 253. Patient is medically cleared to undergo psychiatric screening for further evaluation and disposition. Mental health screening discussed with the patient. Psychiatric screen ordered. Diagnosis Primary Impression: Alcohol abuse with alcohol-induced mood disorder Condition: Stable Estelle Boyle Jun 11, 2017 19:38
[2017-06-11 20:52] LABS: AUTOMATED NEUTROPHIL # 2.2 TH/MM3 (1.8-7.7); BASOPHIL % 0.9 % (0.0-2.0); EOSINOPHIL # 0.1 TH/MM3 (0-0.4); EOSINOPHIL % 1.2 % (0.0-4.0); HEMATOCRIT 40.1 % (39.0-51.0); HEMOGLOBIN 13.7 GM/DL (13.0-17.0); LYMPH % 40.4 % (9.0-44.0); LYMPHOCYTE # 1.9 TH/MM3 (1.0-4.8); MEAN CELL VOLUME 96.3 FL (80.0-100.0); MEAN CORPUSCULAR HGB CONC 34.2 % (32.0-36.0); MEAN PLATELET VOLUME 7.3 FL (7.0-11.0); MONO % 9.7 % (0.0-8.0); MONOCYTE # 0.4 TH/MM3 (0-0.9); NEUT % 47.8 % (16.0-70.0); PLATELET COUNT 275 TH/MM3 (150-450); RED BLOOD COUNT 4.16 MIL/MM3 (4.50-5.90); RED CELL DISTRIBUTION WIDTH 14.5 % (11.6-17.2); WHITE BLOOD COUNT 4.6 TH/MM3 (4.0-11.0)
[2017-06-11 21:07] LABS: BICARBONATE 23.4 MEQ/L (21.0-32.0); CALCIUM 8.4 MG/DL (8.5-10.1); CREATININE 0.69 MG/DL (0.60-1.30)
[2017-06-11 22:38] VITALS: BP 119/58; PULSE 105; RESP 18; TEMP 99.2; O2SAT 94
[2017-06-11] MEDS ORDERED: FLUMAZENIL 0.5 MG/5 ML VIAL IV PUSH PRN (22:45)
[2017-06-11] MEDS ORDERED: LORazepam 2 MG/ML VIAL IV PUSH PRN ×4 (22:45)
[2017-06-11] MEDS ORDERED: IBUPROFEN 600 MG TAB PO PRN (22:45)
[2017-06-11] MEDS ORDERED: LORazepam 1 MG TAB PO PRN (22:45)
[2017-06-11] MEDS ORDERED: LORazepam 2 MG TAB PO PRN (22:45)
[2017-06-11] MEDS ORDERED: ACETAMINOPHEN 325 MG TAB PO PRN (22:45)
[2017-06-11] MEDS ORDERED: ONDANSETRON ODT 4 MG TAB PO PRN (22:45)
[2017-06-12 06:32] VITALS: BP 132/66; PULSE 81; RESP 17; TEMP 96.5; O2SAT 97
[2017-06-12 11:39] VITALS: BP 121/63; PULSE 79; RESP 16; TEMP 97.6; O2SAT 100
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
--- NOTE | 2017-06-12 12:13 | PD ---
Physical Exam Time Seen by Provider: 12:[address] England has evaluated the patient, lifted Gannon act and cleared patient for discharge. Data Data Last Documented VS Vital Signs Date Time Temp Pulse Resp B/P (MAP) Pulse Ox O2 Delivery O2 Flow Rate FiO2 06/12/17 11:39 97.6 79 16 121/63 (82) 100 Room Air Orders Orders Complete Blood Count With Diff (06/11/17 19:44) Thyroid Stimulating Hormone (06/11/17 19:44) Basic Metabolic Panel (Bmp) (06/11/17 19:44) Psych Screen (06/11/17 19:44) Drug Screen, Random Urine (06/11/17 19:44) Alcohol (Ethanol) (06/11/17 19:44) Diet Regular Basic (06/12/17 Breakfast) Alcohol Withdrawal Asmt-Ciwa ONCE (06/11/17 22:45) Ondansetron Odt (Zofran Odt) (06/11/17 22:45) Acetaminophen (Tylenol) (06/11/17 22:45) Ibuprofen (Motrin) (06/11/17 22:45) Flumazenil Inj (Romazicon Inj) (06/11/17 22:45) Lorazepam (Ativan) (06/11/17 22:45) Lorazepam Inj (Ativan Inj) (06/11/17 22:45) Lorazepam (Ativan) (06/11/17 22:45) Lorazepam Inj (Ativan Inj) (06/11/17 22:45) Lorazepam Inj (Ativan Inj) (06/11/17 22:45) Lorazepam Inj (Ativan Inj) (06/11/17 22:45) Diet Regular Basic (06/12/17 Lunch) Labs Laboratory Tests Test 06/11/17 20:05 White Blood Count 4.6 TH/MM3 Red Blood Count 4.16 MIL/MM3 Hemoglobin 13.7 GM/DL Hematocrit 40.1 % Mean Corpuscular Volume 96.3 FL Mean Corpuscular Hemoglobin 33.0 PG Mean Corpuscular Hemoglobin Concent 34.2 % Red Cell Distribution Width 14.5 % Platelet Count 275 TH/MM3 Mean Platelet Volume 7.3 FL Neutrophils (%) (Auto) 47.8 % Lymphocytes (%) (Auto) 40.4 % Monocytes (%) (Auto) 9.7 % Eosinophils (%) (Auto) 1.2 % Basophils (%) (Auto) 0.9 % Neutrophils # (Auto) 2.2 TH/MM3 Lymphocytes # (Auto) 1.9 TH/MM3 Monocytes # (Auto) 0.4 TH/MM3 Eosinophils # (Auto) 0.1 TH/MM3 Basophils # (Auto) 0.0 TH/MM3 CBC Comment DIFF FINAL Differential Comment Blood Urea Nitrogen 6 MG/DL Creatinine 0.69 MG/DL Random Glucose 71 MG/DL Calcium Level 8.4 MG/DL Sodium Level 140 MEQ/L Potassium Level 3.6 MEQ/L Chloride Level 105 MEQ/L Carbon Dioxide Level 23.4 MEQ/L Anion Gap 12 MEQ/L Estimat Glomerular Filtration Rate 116 ML/MIN Thyroid Stimulating Hormone 3rd Gen 0.876 uIU/ML Urine Opiates Screen NEG Urine Barbiturates Screen NEG Urine Amphetamines Screen NEG Urine Benzodiazepines Screen NEG Urine Cocaine Screen NEG Urine Cannabinoids Screen NEG Ethyl Alcohol Level 253 MG/DL MDM Supervised Visit with [place]: No Narrative Course Dr. England has evaluated the patient, lifted Teressa boo and cleared patient for discharge. Patient contracts safety. Denies suicidal or homicidal ideations. Patient will be provided community resource packet to [facility] for follow-up. Has friends and family for support. Patient was medically cleared by alternate provider prior to psych screening. Patient has been evaluated by psychiatry and and is now cleared for discharge. Diagnosis Primary Impression: Alcohol abuse with alcohol-induced mood disorder Referrals: [facility] (Out patient) [facility] Primary Care Physician Psychiatrist [facility] Patient Instructions: Abuse of Alcohol (ED), Alcohol Dependence (ED), Alcohol Intoxication (ED), General Instructions Additional Instruction: Contract safety to your self and others Follow-up with psychiatry Follow-up with primary care provider Follow-up with Frank Akhtar Return to the emergency department immediately with worsening of symptoms Med/Other Pt SpecificInfo: No Change to Meds, No Meds Exist/No RX given Disposition: 01 DISCHARGE HOME Condition: Stable Rashida Sepulveda Flo YOON Jun 12, 2017 12:13
== END 2017-06-12 13:31 | disposition home or self-care (01) ==
LOC: NEDAMB 17:35 → NEPJ 06-12 13:31
DX: F10.24 Alcohol dependence with alcohol-induced mood disorder (principal); F17.200 Nicotine dependence, unspecified, uncomplicated; F31.9 Bipolar disorder, unspecified; Y90.8 Blood alcohol level of 240 mg/100 ml or more; Z79.899 Other long term (current) drug therapy
CPT/HCPCS: 80048; 80307; 84443; 85025; 99284

== ENCOUNTER 2017-07-11 13:16 | Emergency (ER) | payer OTHER ==
[2017-07-11 13:52] VITALS: BP 127/72; PULSE 86; RESP 18; TEMP 98; O2SAT 96
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
[2017-07-11] MEDS ORDERED: LORazepam 2 MG/ML VIAL IM ONE (14:30)
[2017-07-11] MEDS ORDERED: LORazepam 1 MG TAB PO PRN (14:30)
[2017-07-11] MEDS ORDERED: LORazepam 2 MG TAB PO PRN (14:30)
[2017-07-11] MEDS ORDERED: FLUMAZENIL 0.5 MG/5 ML VIAL IV PUSH PRN (14:30)
[2017-07-11] MEDS ORDERED: LORazepam 2 MG/ML VIAL IV PUSH PRN ×4 (14:30)
[2017-07-11] MEDS ORDERED: chlordiazePOXIDE 25 MG CAP PO ONE (14:30)
[2017-07-11 15:25] LABS: BASOPHIL % 0.7 % (0.0-2.0); EOSINOPHIL % 0.4 % (0.0-4.0); HEMOGLOBIN 15.9 GM/DL (13.0-17.0); LYMPHOCYTE # 1.3 TH/MM3 (1.0-4.8); MEAN CELL VOLUME 95.7 FL (80.0-100.0); MEAN CORPUSCULAR HEMOGLOBIN 33.1 PG (27.0-34.0); MEAN CORPUSCULAR HGB CONC 34.6 % (32.0-36.0); MEAN PLATELET VOLUME 8.1 FL (7.0-11.0); MONO % 13.2 % (0.0-8.0); MONOCYTE # 0.5 TH/MM3 (0-0.9); NEUT % 51.7 % (16.0-70.0); PLATELET COUNT 156 TH/MM3 (150-450); RED BLOOD COUNT 4.81 MIL/MM3 (4.50-5.90); RED CELL DISTRIBUTION WIDTH 14.3 % (11.6-17.2); WHITE BLOOD COUNT 3.9 TH/MM3 (4.0-11.0)
[2017-07-11 15:53] LABS: BILIRUBIN, URINE NEG (NEG); BLOOD, URINE NEG (NEG); GLUCOSE,URINE NEG (NEG); KETONE, URINE NEG (NEG); NITRITE,URINE NEG (NEG); PH, URINE 5.5 (5.0-8.5); URINE COLOR YELLOW (YELLW/STRAW); URINE LEUKOCYTE ESTERASE NEG (NEG)
[2017-07-11 16:05] LABS: ALBUMIN 3.8 GM/DL (3.4-5.0); ALKALINE PHOSPHATASE 88 U/L (45-117); AST (GOT) 42 U/L (15-37); BLOOD UREA NITROGEN 4 MG/DL (7-18); CALCIUM 8.5 MG/DL (8.5-10.1); CREATININE 0.79 MG/DL (0.60-1.30); GLOMERULAR FILTRATION RATE 99 ML/MIN (>89); GLUCOSE,RANDOM 76 MG/DL (74-106); TOTAL PROTEIN 7.4 GM/DL (6.4-8.2)
[2017-07-11 16:06] LABS: ALT (GPT) 33 U/L (12-78); BICARBONATE 21.3 MEQ/L (21.0-32.0); CHLORIDE 107 MEQ/L (98-107); SODIUM (NA) 141 MEQ/L (136-145); TOTAL BILIRUBIN ADULT 0.4 MG/DL (0.2-1.0)
[2017-07-11 23:07] VITALS: BP 133/78; PULSE 91; RESP 18; TEMP 98.3; O2SAT 95
[2017-07-12 00:22] VITALS: BP 129/59; PULSE 69; RESP 18; TEMP 98.2; O2SAT 98
[2017-07-12 06:18] VITALS: BP 149/67; PULSE 76; RESP 20; TEMP 98; O2SAT 97
[2017-07-12 12:25] VITALS: BP 128/67; PULSE 78; RESP 18; O2SAT 97
--- NOTE | 2017-07-12 12:57 | PD ---
Physical Exam Time Seen by Provider: 12:56 Narrative The patient is being transferred to the [facility] for continued care and evaluation. Data Data Last Documented VS Vital Signs Date Time Temp Pulse Resp B/P (MAP) Pulse Ox O2 Delivery O2 Flow Rate FiO2 07/12/17 12:25 78 18 128/67 (87) 97 Room Air 07/12/17 06:18 98.0 Orders Orders Diet Regular Basic (07/11/17 Lunch) Complete Blood Count With Diff (07/11/17 14:23) Comprehensive Metabolic Panel (07/11/17 14:23) Thyroid Stimulating Hormone (07/11/17 14:23) Urinalysis - C+S If Indicated (07/11/17 14:23) Psych Screen (07/11/17 14:23) Lorazepam Inj (Ativan Inj) (07/11/17 14:30) Drug Screen, Random Urine (07/11/17 14:23) Alcohol (Ethanol) (07/11/17 14:23) Chlordiazepoxide (Librium) (07/11/17 14:30) Alcohol Withdrawal Asmt-Ciwa [id number] (07/11/17 14:27) Flumazenil Inj (Romazicon Inj) (07/11/17 14:30) Lorazepam (Ativan) (07/11/17 14:30) Lorazepam Inj (Ativan Inj) (07/11/17 14:30) Lorazepam (Ativan) (07/11/17 14:30) Lorazepam Inj (Ativan Inj) (07/11/17 14:30) Lorazepam Inj (Ativan Inj) (07/11/17 14:30) Lorazepam Inj (Ativan Inj) (07/11/17 14:30) Diet Regular Basic (07/12/17 Breakfast) Diet Regular Basic (07/12/17 Lunch) Labs Laboratory Tests Test 07/11/17 14:35 White Blood Count 3.9 TH/MM3 Red Blood Count 4.81 MIL/MM3 Hemoglobin 15.9 GM/DL Hematocrit 46.0 % Mean Corpuscular Volume 95.7 FL Mean Corpuscular Hemoglobin 33.1 PG Mean Corpuscular Hemoglobin Concent 34.6 % Red Cell Distribution Width 14.3 % Platelet Count 156 TH/MM3 Mean Platelet Volume 8.1 FL Neutrophils (%) (Auto) 51.7 % Lymphocytes (%) (Auto) 34.0 % Monocytes (%) (Auto) 13.2 % Eosinophils (%) (Auto) 0.4 % Basophils (%) (Auto) 0.7 % Neutrophils # (Auto) 2.0 TH/MM3 Lymphocytes # (Auto) 1.3 TH/MM3 Monocytes # (Auto) 0.5 TH/MM3 Eosinophils # (Auto) 0.0 TH/MM3 Basophils # (Auto) 0.0 TH/MM3 CBC Comment DIFF FINAL Differential Comment Urine Color YELLOW Urine Turbidity CLEAR Urine pH 5.5 Urine Specific Albers 1.005 Urine Protein NEG mg/dL Urine Glucose (UA) NEG mg/dL Urine Ketones NEG mg/dL Urine Occult Blood NEG Urine Nitrite NEG Urine Bilirubin NEG Urine Urobilinogen LESS THAN 2.0 MG/DL Urine Leukocyte Esterase NEG Urine RBC LESS THAN 1 /hpf Urine WBC 1 /hpf Microscopic Urinalysis Comment CULT NOT INDICATED Blood Urea Nitrogen 4 MG/DL Creatinine 0.79 MG/DL Random Glucose 76 MG/DL Total Protein 7.4 GM/DL Albumin 3.8 GM/DL Calcium Level 8.5 MG/DL Alkaline Phosphatase 88 U/L Aspartate Amino Transf (AST/SGOT) 42 U/L Alanine Aminotransferase (ALT/SGPT) 33 U/L Total Bilirubin 0.4 MG/DL Sodium Level 141 MEQ/L Potassium Level 3.6 MEQ/L Chloride Level 107 MEQ/L Carbon Dioxide Level 21.3 MEQ/L Anion Gap 13 MEQ/L Estimat Glomerular Filtration Rate 99 ML/MIN Thyroid Stimulating Hormone 3rd Gen 0.780 uIU/ML Urine Opiates Screen NEG Urine Barbiturates Screen NEG Urine Amphetamines Screen NEG Urine Benzodiazepines Screen NEG Urine Cocaine Screen NEG Urine Cannabinoids Screen NEG Ethyl Alcohol Level 223 MG/DL [facility] [place] Supervised Visit with [place]: No Narrative Course The patient is being transferred to the [facility] for continued care and evaluation. Diagnosis Primary Impression: Alcohol abuse with alcohol-induced mood disorder Disposition: 65 DISC TO PSYCH CARE FACILITY Condition: Stable Rashida Sepulveda [facility] Jul 12, 2017 12:57
== END 2017-07-12 14:14 ==
LOC: NEPD 13:16 → NEPJ 07-12 14:14
DX: F10.14 Alcohol abuse with alcohol-induced mood disorder (principal); Y90.7 Blood alcohol level of 200-239 mg/100 ml; R45.851 Suicidal ideations; F31.9 Bipolar disorder, unspecified; F41.9 Anxiety disorder, unspecified; Z86.73 Personal history of transient ischemic attack (TIA), and cerebral infarction without residual deficits; F17.200 Nicotine dependence, unspecified, uncomplicated; Z59.0 Homelessness
CPT/HCPCS: 80053; 80307; 81001; 84443; 85025; 96372; 96374; 99285; J2060